=== PATIENT | male | born 1945 | race Caucasian/White ===

== ENCOUNTER 2018-05-06 20:05 | Emergency (ER) | payer OTHER ==
--- NOTE | 2018-05-06 20:43 | EDPHYS ---
Physician Documentation [facility] Name: Geovanny Moore Age: 72 yrs Sex: Male : 1945 Arrival Date: 05/06/2018 Time: 20:09 Bed 27 Private MD: Luis Eduardo Knott F ED Physician Manny Aldrich HPI: 05/06 20:35 This 72 yrs old Male presents to ER via Wheelchair with complaints of FOOT ps1 INFECTED. 20:35 diabetic patient on glimeperide BS 147. Has open sore inbetween toes. Has long history ps1 of toe fungus. Has pain and mild erythematous changes extending up the foot appx one inch. No fever. Pain moderate. Worse with ambulation. . Historical: - Allergies: 20:22 Codeine; aj1 - Home Meds: 20:22 potassium chloride 10 mEq Oral TbER 1 tab once daily [Active]; losartan 100 mg Oral tab aj1 1 tab once daily [Active]; furosemide 40 mg Oral tab 1 tab once daily [Active]; spironolactone 25 mg Oral tab 1 tab 2 times per day [Active]; glimepiride 1 mg Oral tab 1 tab once daily [Active]; isosorbide mononitrate 60 mg Oral Tb24 1 tab once daily [Active]; clopidogrel 75 mg Oral tab 1 tab once daily [Active]; pravastatin 40 mg Oral tab 1 tab once daily [Active]; aspirin 81 mg Oral tab 1 tab once daily [Active]; - PMHx: 20:22 CHF; COPD; defibrilator; Diabetes - NIDDM; Hypertension; Myocardial infarction; CAD; aj1 - Immunization history:: Flu vaccine is up to date. - Social history:: Smoking status: Patient uses tobacco products, smokes two packs cigarettes per day. - Ebola Screening: : Patient denies travel to an Ebola-affected area in the 21 days before illness onset. ROS: 20:35 Constitutional: Negative for fever, chills, and weight loss, Eyes: Negative for injury, ps1 pain, redness, and discharge, Cardiovascular: Negative for chest pain, palpitations, and edema, Respiratory: Negative for shortness of breath, cough, wheezing, and pleuritic chest pain, Abdomen/GI: Negative for abdominal pain, nausea, vomiting, diarrhea, and constipation, MS/Extremity: Negative for injury and deformity. 20:35 Skin: Positive for cellulitis, ulceration, of the left fourth toe. Exam: 20:35 Constitutional: This is a well developed, well nourished patient who is awake, alert, ps1 and in no acute distress. Head/Face: Normocephalic, atraumatic. Eyes: Pupils equal round and reactive to light, extra-ocular motions intact. Lids and lashes normal. Conjunctiva and sclera are non-icteric and not injected. Chest/axilla: Normal chest wall appearance and motion. Nontender with no deformity. No lesions are appreciated. Cardiovascular: Regular rate and rhythm. No gallops, murmurs, or rubs. Normal PMI, no JVD. No pulse deficits. Respiratory: Lungs have equal breath sounds bilaterally, clear to auscultation and percussion. No rales, rhonchi or wheezes noted. No increased work of breathing, no retractions or nasal flaring. Abdomen/GI: Soft, non-tender, with normal bowel sounds. No distension or tympany. No guarding or rebound. No evidence of tenderness throughout. MS/ Extremity: Pulses equal, no cyanosis. Neurovascular intact. Full, normal range of motion. Neuro: Awake and alert, GCS 15, oriented to person, place, time, and situation. Cranial nerves II-XII grossly intact. Sensory grossly intact. 20:35 Skin: cellulitis, that is minimal, on the left fourth toe web space, appears candidal. . Vital Signs: 20:22 BP 137 / 77; Pulse 63; Resp 18; Temp 97.6(TE); Pulse Ox 96% on R/A; Weight 102.06 kg aj1 (R); Height 6 ft. 2 in. (187.96 cm) (R); Pain 0/10; 20:22 Body Mass Index 28.89 (102.06 kg, 187.96 cm) aj1 MDM: 20:41 Data reviewed: vital signs, nurses notes, lab test result(s). 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 20:42 Patient medically screened. ps1 Administered Medications: 20:41 Drug: [place] 5 mg-325 mg 1 tabs Route: PO; mg2 21:01 Follow up: Response: No adverse reaction; Medication administered at discharge. mg2 Disposition: 05/06/18 20:42 Discharged to Home. Impression: Diabetic Ulcer, Onchyomycosis. - Condition is Stable. - Discharge Instructions: Athlete's Foot, Cellulitis, Adult. - Prescriptions for Clotrimazole 1 % Topical Cream - Apply to affected area 1 application by TOPICAL route every 12 hours; 15 gram. Keflex 500 mg Oral Capsule - take 1 capsule by ORAL route every 8 hours for 10 days; 30 capsule. Tramadol 50 mg Oral Tablet - take 1 tablet by ORAL route every 8 hours as needed; 12 tablet. Bactrim DS 800- 160 mg Oral Tablet - take 1 tablet by ORAL route every 12 hours for 10 days; 20 tablet. - Medication Reconciliation Form, Thank You Letter, Antibiotic Education, Prescription Opioid Use form. - Follow up: Luis Eduardo Knott MD; When: As needed; Reason: Further diagnostic work-up, Recheck today's complaints, Continuance of care, Re-evaluation by your physician. Follow up: Emergency Department; When: As needed; Reason: Fever > 102 F, Trouble breathing, Worsening of condition. - Problem is new. - Symptoms are unchanged. Signatures: Mindy Barry RN RN aj1 Manny Aldrich MD MD ps1 Ilya Méndez RN RN mg2 Corrections: (The following items were deleted from the chart) 21:14 20:42 05/06/2018 20:42 Discharged to Home. Impression: Diabetic Ulcer; Onchyomycosis. mg2 Condition is Stable. Forms are Medication Reconciliation Form, Thank You Letter, Antibiotic Education, Prescription Opioid Use. Follow up: Luis Eduardo Knott; When: As needed; Reason: Further diagnostic work-up, Recheck today's complaints, Continuance of care, Re-evaluation by your physician. Follow up: Emergency Department; When: As needed; Reason: Fever > 102 F, Trouble breathing, Worsening of condition. Problem is new. Symptoms are unchanged. ps1
--- NOTE | 2018-05-06 20:43 | ER ---
Nurse's Notes [facility] Name: Geovanny Moore Age: 72 yrs Sex: Male : 1945 Arrival Date: 05/06/2018 Time: 20:09 Bed 27 Private MD: Luis Eduardo Knott F Diagnosis: Diabetic Ulcer;Onchyomycosis Presentation: 05/06 20:15 Presenting complaint: Patient states: Pain and redness to the top of his left foot that aj1 started 2 days ago. Denies fever. Transition of care: patient was not received from another setting of care. Onset of symptoms was May 04, 2018. Risk Assessment: Do you want to hurt yourself or someone else? Patient reports no desire to harm self or others. Initial Sepsis Screen: Does the patient meet any 2 criteria? No. Patient's initial sepsis screen is negative. Does the patient have a suspected source of infection? Yes: Skin breakdown/wound. Care prior to arrival: None. 20:15 Method Of Arrival: Wheelchair aj1 20:15 Acuity: KIARA 3 aj1 Triage Assessment: 20:22 General: Appears in no apparent distress. uncomfortable, Behavior is calm, cooperative, aj1 appropriate for age. Pain: Complains of pain in left foot Pain currently is 0 out of 10 on a pain scale. at worst was 10 out of 10 on a pain scale. Alleviated by rest, Aggravated by repositioning. Neuro: Level of Consciousness is awake, alert, obeys commands. Cardiovascular: Patient's skin is warm and dry. Respiratory: Airway is patent Respiratory effort is even, unlabored, Respiratory pattern is regular, symmetrical. Historical: - Allergies: 20:22 Codeine; aj1 - Home Meds: 20:22 potassium chloride 10 mEq Oral TbER 1 tab once daily [Active]; losartan 100 mg Oral tab aj1 1 tab once daily [Active]; furosemide 40 mg Oral tab 1 tab once daily [Active]; spironolactone 25 mg Oral tab 1 tab 2 times per day [Active]; glimepiride 1 mg Oral tab 1 tab once daily [Active]; isosorbide mononitrate 60 mg Oral Tb24 1 tab once daily [Active]; clopidogrel 75 mg Oral tab 1 tab once daily [Active]; pravastatin 40 mg Oral tab 1 tab once daily [Active]; aspirin 81 mg Oral tab 1 tab once daily [Active]; - PMHx: 20:22 CHF; COPD; defibrilator; Diabetes - NIDDM; Hypertension; Myocardial infarction; CAD; aj1 - Immunization history:: Flu vaccine is up to date. - Social history:: Smoking status: Patient uses tobacco products, smokes two packs cigarettes per day. - Ebola Screening: : Patient denies travel to an Ebola-affected area in the 21 days before illness onset. Screenin:00 Abuse screen: Denies threats or abuse. Denies injuries from another. Nutritional mg2 screening: No deficits noted. Tuberculosis screening: No symptoms or risk factors identified. Fall Risk None identified. Assessment: 21:00 General: Appears in no apparent distress. comfortable, Behavior is calm, cooperative. mg2 Pain: Complains of pain in left fourth toe and left foot Pain does not radiate. Pain currently is 6 out of 10 on a pain scale. Quality of pain is described as aching, Pain began gradually, Is intermittent, Alleviated by medications. Neuro: Level of Consciousness is awake, alert, obeys commands, Oriented to person, place, time, situation. Cardiovascular: Capillary refill < 3 seconds Patient's skin is warm and dry. Respiratory: Airway is patent Respiratory effort is even, unlabored, Respiratory pattern is regular, symmetrical. GI: No signs and/or symptoms were reported involving the gastrointestinal system. : No signs and/or symptoms were reported regarding the genitourinary system. EENT: No signs and/or symptoms were reported regarding the EENT system. Derm: Skin is intact, Wound noted left fourth toe and left foot. Vital Signs: 20:22 BP 137 / 77; Pulse 63; Resp 18; Temp 97.6(TE); Pulse Ox 96% on R/A; Weight 102.06 kg aj1 (R); Height 6 ft. 2 in. (187.96 cm) (R); Pain 0/10; 20:22 Body Mass Index 28.89 (102.06 kg, 187.96 cm) aj1 ED Course: 20:09 Patient arrived in ED. es 20:10 Luis Eduardo Knott MD is Private Physician. es 20:19 Triage completed. aj1 20:22 Arm band placed on Patient placed in an exam room. aj1 20:24 Manny Aldrich MD is Attending Physician. ps1 20:31 Gardose, Ilya, RN is Primary Nurse. mg2 20:42 Luis Eduardo Knott MD is Referral Physician. ps1 21:00 No provider procedures requiring assistance completed. Patient did not have IV access mg2 during this emergency room visit. 21:01 Patient has correct armband on for positive identification. mg2 Administered Medications: 20:41 Drug: [place] 5 mg-325 mg 1 tabs Route: PO; mg2 21:01 Follow up: Response: No adverse reaction; Medication administered at discharge. mg2 Outcome: 20:42 Discharge ordered by MD. ps1 21:13 Discharged to home via wheelchair. mg2 21:13 Condition: stable 21:13 Discharge instructions given to patient, family, Instructed on discharge instructions, follow up and referral plans. medication usage, Demonstrated understanding of instructions, follow-up care, medications, Prescriptions given X 4. 21:14 Patient left the ED. mg2 Signatures: Mindy Barry RN RN aj1 Cony Ervin Phillip, MD MD ps1 Ilya Méndez RN RN mg2
[2018-05-06] MEDS ORDERED: HYDROCODONE/APAP 5/325 MG TAB ONE (20:46)
[2018-05-06 21:23] VITALS: BP 137/77; TEMP 97.6; O2SAT 96
== END 2018-05-06 21:14 | disposition home or self-care (01) ==
LOC: ER 20:05
DX: B35.1 Tinea unguium (principal); F17.210 Nicotine dependence, cigarettes, uncomplicated; I10 Essential (primary) hypertension; J44.9 Chronic obstructive pulmonary disease, unspecified; I25.2 Old myocardial infarction; I50.9 Heart failure, unspecified; Z79.82 Long term (current) use of aspirin; Z88.5 Allergy status to narcotic agent
CPT/HCPCS: 82962; 99283

== ENCOUNTER 2018-09-19 14:45 | Observation (INO) | payer OTHER, SELFPAY ==
--- OUTSIDE RECORDS SUMMARY | 2018-09-19 14:50 | XMS REPORT | Continuity of Care Document ---
:1945 Author Organization Interface Problems Problem Status Onset Classification Date Comments Source Date Reported TIA L SIDED Active [facility] TIA L SIDED Active [facility] WEAKNESS/ABNO 4 Medical RMAL CTA Center TRANS CEREB Active [facility] Medications Medication Details Route Status Patient Ordering Order Source Instructions Provider Date Allergies, Adverse Reactions, Alerts Substance Category Reaction Severity Reaction Status Date Comments Source type Reported Immunizations Immunization Date Given Site Status Last Updated Comments Source Results Order Results Value Reference Date Interpretation Comments Source Name Range Brain/Nec Brain/Nec EXAM: CT BRAIN WITHOUT CONTRAST 03/17 - [facility] CTA k CTA /2013 - Medical EXAM: CTA OF THE NECK Center EXAM: CTA OF THE BRAIN Read by: Everton Carrington MD Dictated Date/time: 03/17/14 21:10 Electronically Signed by: Everton Carrington MD 03/17/14 21:41 FINAL REPORT DATE: Mar 17, 2014 05:57:00 AM INDICATION: Altered level of consciousness TECHNIQUE: Precontrast CT images of the brain were obtained from the skullbase to the vertex. Contiguous thin section images of the neck and brain were obtained utilizing a multidetector scanner after uneventful administration of nonionic iodinated contrast medium. Computer reformatted maximal i ntensity projection (MIP) sagittal and coronal images are provided. COMPARISON: Head [facility] presence [facility] March 16, 2014 11: 58 p.m. FINDINGS: PRECONTRAST BRAIN CT: The examination is unchanged. There is no evidence of intraparenchymal or extra-axial hemorrhage, mass, mass-effect, hydrocephalus, or acute cortical infarction. Extensive left frontal encephalomalacia is present primarily involving the middle frontal gyrus and the subjacent white matter as well as the left cervantes radiata. Additional remote ischemic changes are seen in the anterior cervantes radiata more inferiorly with involvement of the adjacent body of the caudate and compensatory dilation of the ipsilateral ventricle. A remote lacunar infarct is present in the globus pallidus on the left. Additional hypodensity is seen in the thalami bilaterally, more prominent on the left. The latter lesion is of indeterminate age. Another area of hypodensity is detected in the mc to the left of midline extending up nearly to the junction with the midbrain. There is also diminished attenuation in the right cerebral peduncle whic h may, in part, be artifactual. Linear hypodensities in the cerebellar hemispheres bilaterally are felt to represent small remote infarcts, larger on the left. Incidental imaging of the orbits, paranasal sinuses, skull, and skull base is unremarkable. NECK CTA: Aortic arch: The great vessels originate from the aortic arch in the standard configuration. No origin stenosis is identified. The vertebral artery origins are patent bilaterally. Carotid arteries: The cervical common carotid arteries have a normal course , caliber, and contour. There are areas of calcification at the carotid bifurcations. The left internal carotid artery is occlu ded. A small (6 mm) stump is present at the bifurcation area on the right, no measurable stenosis of the carotid bifurcation or internal carotid artery is present by NASCET criteria. There is no evidence of acute vascular injury. Vertebral arteries: The vertebral arteries are codominant. They have a normal course in the neck. Mild atherosclerotic irregularity is present at the C6 level bilaterally without producing a measurable degree of stenosis. The remainder of the vertebral arteries have a normal course and caliber extracranially. BRAIN CTA: The intracranial internal carotid artery on the left is occluded up to the level of the ophthalmic artery. Calcification in this region obscures the expected location of the lumen. Based on reformatted images I suspect that there is a tiny amount of contrast present in the supraclinoid internal carotid artery. Whether this is filling from the ophthalmic artery or retrograde is uncertain. A small anter ior communicating artery provides collateral flow. Vascular structures in the suprasellar cistern are probably venous rather than very small posterior communicating arteries. In spite of the lack of prominent collaterals just noted, caliber of the middle cerebral artery is preserved indicating that blood flow is available from some source, possibly over the convexity. The an terior cerebral artery on the left, likewise, has a normal appearance. Atherosclerotic changes are present on the right involving the cavernous carotid but are too dense to allow adequate visualization of the segment of the vessel to determine whether a flow limiting stenosis is present. Atherosclerotic changes are seen in peripheral MCA branches bilaterally. No branch occlusion is detected. Examination of the posterior circulation demonstrates extensive calcification of the V4 segments bilaterally with a greater than 50% stenosis seen on the right. On the left, a great deal of calcificatio n is present immediately proximal to the basilar artery which obscures the underlying lumen. However, and at least 30 to 40% stenosis is felt to be present. On the right, there is a very focal 65% steno sis present in this region. Further assess atherosclerotic changes extend into the basilar artery. At the mid basilar artery a high-grade eccentric stenosis is present causing near occlusion of the lumen. This measures at least 70% and may be more. Again, atherosclerotic changes are noted more peripherally in the posterior cerebral arteries, particularly on the right where multifocal narrowing of the already small vessel is identified in the P2 se gment with Camilla tandem less than 50% stenoses being present, partially obscured by an overlapping vein on the MIP image. IMPRESSION: 1. Remote left MCA territory infarct. 2. Extensive chronic microvascular ischemic changes of the white matter and deep tavarez matter nuclei may obscure a superimposed more recent infarct. 3. Age-indeterminate left thalamic lacunar infarct. 4. Small remote bilateral cerebellar infarcts. 5. No intracranial mass or hemorrhage. 6. Chronic left internal carotid artery stenosis. Small stump at the ICA origin on the left is a potential source for emboli assuming that flow in the of stomach artery is retrograde. 7. Opacification of the intracranial circulation on the left with collateral flow being provided by the anterior communicating artery although it is small. Leptomeningeal collateral flow is likely also present given the lack of detectable posterior communicating arteries. 8. 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 9. Extensive peripheral intracranial atherosclerotic change. (All qualitative and quantitative assessments of carotid bifurcation and proximal internal carotid artery stenosis are made referencing the distal internal carotid artery.) Brain Brain EXAM: CT BRAIN WITHOUT CONTRAST 03/17 - [facility] Stroke wo Stroke - Medical contrast contrast EXAM: CTA OF THE NECK Center CT CT EXAM: CTA OF THE BRAIN Read by: Everton Carrington MD Dictated Date/time: 03/17/14 21:10 Electronically Signed by: Everton Carrington MD 03/17/14 21:41 FINAL REPORT DATE: Mar 17, 2014 05:57:00 AM INDICATION: Altered level of consciousness TECHNIQUE: Precontrast CT images of the brain were obtained from the skullbase to the vertex. Contiguous thin section images of the neck and brain were obtained utilizing a multidetector scanner after uneventful administration of nonionic iodinated contrast medium. Computer reformatted maximal i ntensity projection (MIP) sagittal and coronal images are provided. COMPARISON: Head [facility] presence [facility] March 16, 2014 11: 58 p.m. FINDINGS: PRECONTRAST BRAIN CT: The examination is unchanged. There is no evidence of intraparenchymal or extra-axial hemorrhage, mass, mass-effect, hydrocephalus, or acute cortical infarction. Extensive left frontal encephalomalacia is present primarily involving the middle frontal gyrus and the subjacent white matter as well as the left cervantes radiata. Additional remote ischemic changes are seen in the anterior cervantes radiata more inferiorly with involvement of the adjacent body of the caudate and compensatory dilation of the ipsilateral ventricle. A remote lacunar infarct is present in the globus pallidus on the left. Additional hypodensity is seen in the thalami bilaterally, more prominent on the left. The latter lesion is of indeterminate age. Another area of hypodensity is detected in the mc to the left of midline extending up nearly to the junction with the midbrain. There is also diminished attenuation in the right cerebral peduncle whic h may, in part, be artifactual. Linear hypodensities in the cerebellar hemispheres bilaterally are felt to represent small remote infarcts, larger on the left. Incidental imaging of the orbits, paranasal sinuses, skull, and skull base is unremarkable. NECK CTA: Aortic arch: The great vessels originate from the aortic arch in the standard configuration. No origin stenosis is identified. The vertebral artery origins are patent bilaterally. Carotid arteries: The cervical common carotid arteries have a normal course , caliber, and contour. There are areas of calcification at the carotid bifurcations. The left internal carotid artery is occlu ded. A small (6 mm) stump is present at the bifurcation area on the right, no measurable stenosis of the carotid bifurcation or internal carotid artery is present by NASCET criteria. There is no evidence of acute vascular injury. Vertebral arteries: The vertebral arteries are codominant. They have a normal course in the neck. Mild atherosclerotic irregularity is present at the C6 level bilaterally without producing a measurable degree of stenosis. The remainder of the vertebral arteries have a normal course and caliber extracranially. BRAIN CTA: The intracranial internal carotid artery on the left is occluded up to the level of the ophthalmic artery. Calcification in this region obscures the expected location of the lumen. Based on reformatted images I suspect that there is a tiny amount of contrast present in the supraclinoid internal carotid artery. Whether this is filling from the ophthalmic artery or retrograde is uncertain. A small anter ior communicating artery provides collateral flow. Vascular structures in the suprasellar cistern are probably venous rather than very small posterior communicating arteries. In spite of the lack of prominent collaterals just noted, caliber of the middle cerebral artery is preserved indicating that blood flow is available from some source, possibly over the convexity. The an terior cerebral artery on the left, likewise, has a normal appearance. Atherosclerotic changes are present on the right involving the cavernous carotid but are too dense to allow adequate visualization of the segment of the vessel to determine whether a flow limiting stenosis is present. Atherosclerotic changes are seen in peripheral MCA branches bilaterally. No branch occlusion is detected. Examination of the posterior circulation demonstrates extensive calcification of the V4 segments bilaterally with a greater than 50% stenosis seen on the right. On the left, a great deal of calcificatio n is present immediately proximal to the basilar artery which obscures the underlying lumen. However, and at least 30 to 40% stenosis is felt to be present. On the right, there is a very focal 65% steno sis present in this region. Further assess atherosclerotic changes extend into the basilar artery. At the mid basilar artery a high-grade eccentric stenosis is present causing near occlusion of the lumen. This measures at least 70% and may be more. Again, atherosclerotic changes are noted more peripherally in the posterior cerebral arteries, particularly on the right where multifocal narrowing of the already small vessel is identified in the P2 se gment with Camilla tandem less than 50% stenoses being present, partially obscured by an overlapping vein on the MIP image. IMPRESSION: 1. Remote left MCA territory infarct. 2. Extensive chronic microvascular ischemic changes of the white matter and deep tavarez matter nuclei may obscure a superimposed more recent infarct. 3. Age-indeterminate left thalamic lacunar infarct. 4. Small remote bilateral cerebellar infarcts. 5. No intracranial mass or hemorrhage. 6. Chronic left internal carotid artery stenosis. Small stump at the ICA origin on the left is a potential source for emboli assuming that flow in the of stomach artery is retrograde. 7. Opacification of the intracranial circulation on the left with collateral flow being provided by the anterior communicating artery although it is small. Leptomeningeal collateral flow is likely also present given the lack of detectable posterior communicating arteries. 8. 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 9. Extensive peripheral intracranial atherosclerotic change. (All qualitative and quantitative assessments of carotid bifurcation and proximal internal carotid artery stenosis are made referencing the distal internal carotid artery.) Chest Chest EXAM: XR CHEST ONE VIEW: 03/17 - [facility] 1view - [facility] This report was dictated by a Processing Manager/Fellow. I have personally reviewed the images as Center well as the Resident's interpretation and agree with the findings. DATE: 2014-03-17 04:28:00 Read by: Marco Johnson MD Resident: Marco Johnson MD Dictated Date/time: 03/17/14 05:06 Electronically Signed by: Nickolas Fletcher MD 03/17/14 08:00 FINAL REPORT INDICATION: CVA/TIA TECHNIQUE: Semiupright portable chest radiograph COMPARISON: Chest x-ray from December 21, 2009. FINDINGS: The heart and mediastinal contours are within normal limits . A pulse generator overlies the right upper thorax with AICD lead overlying the SVC and right atrial and right ventricular pacemak er leads present. The lungs are clear. There is no pleural effusion or pneumothorax. No acute bone abnormality is identified. IMPRESSION: No acute radiographic abnormality of the chest. Vital Signs Vital Sign Value Date Comments Source Encounters Location Location Encounter Encounter Reason Attending ADM DC Status Source Details Type Number For Provider Date Date Visit Outpatient [id number] SHAR 08/30 [facility] [place] Outpatient [id number] SHAR 09/27 [facility] [place] Procedures Procedure Code Date Perfomer Comments Source
[2018-09-19 16:03] LABS: Absolute Lymphocytes (CBC) 1.7 K/uL (0.7-4.9); Absolute Monocytes 1.3 K/uL (0.1-1.3); Basophils % 1.7 % (0-1.3); Eosinophils % 2.4 % (0-4.4); Hematocrit 47.2 % (39.6-49.0); Lymphocytes % 15.1 % (15.3-44.8); MPV 9.9 fL (7.6-11.3); Monocytes % 11.2 % (3.3-12.3); RBC Red Blood Cell Count 5.28 M/uL (4.33-5.43)
[2018-09-19 16:12] LABS: Protime INR 1.01
--- NOTE | 2018-09-19 16:12 | RAD REPORT ---
EXAM DESCRIPTION: [facility] Single View09/19/2018 4:05 pm CLINICAL HISTORY: Chest pain COMPARISON: January 2018 FINDINGS: The lungs appear clear of acute infiltrate. The heart is borderline enlarged. Pacemaker l arsalan are in place. Postsurgical changes involve the chest IMPRESSION: No acute abnormalities displayed
[2018-09-19] MEDS ORDERED: NA CHLORIDE 0.9% 1,000 ML ONE (16:23)
[2018-09-19] MEDS ORDERED: FAMOTIDINE 20 MG/2 ML VIAL IV ONE (16:23)
[2018-09-19] MEDS ORDERED: Levofloxacin500mg IV 500 MG/100 ML BAG IV ONE (16:23)
[2018-09-19] MEDS ORDERED: METHYLPREDNISOLONE 125 MG INJ ONE (16:23)
--- NOTE | 2018-09-19 16:32 | EDPHYS ---
Physician Documentation [facility] Name: Geovanny oMore Age: 72 yrs Sex: Male : 1945 Arrival Date: 09/19/2018 Time: 14:48 Bed 5 Private MD: ED Physician Lincoln Flores HPI: 09/19 15:47 This 72 yrs old Male presents to ER via EMS with complaints of General adriana Weakness, Shortness Of Breath, Chest Pain. 15:47 The patient has shortness of breath at rest, with light activity. Onset: The adriana symptoms/episode began/occurred 3 day(s) ago. Duration: The symptoms are continuous, and are steadily getting worse. The patient's shortness of breath is aggravated by nothing, is alleviated by pursed lip breathing, rest, application of supplemental oxygen. Associated signs and symptoms: The patient has no apparent associated signs or symptoms. Severity of symptoms: At their worst the symptoms were moderate in the emergency department the symptoms have resolved. The patient has not experienced similar symptoms in the past. Historical: - Allergies: 15:23 Codeine; iw - Home Meds: 15:23 aspirin 325 mg oral TbEC once daily [Active]; clopidogrel 75 mg Oral tab 1 tab once iw daily [Active]; furosemide 40 mg Oral tab 1 tab 2 times per day [Active]; glimepiride 1 mg Oral tab 1 tab once daily [Active]; isosorbide mononitrate 60 mg Oral Tb24 1 tab once daily [Active]; losartan 100 mg Oral tab 1 tab once daily [Active]; spironolactone 25 mg Oral tab 1 tab 2 times per day [Active]; pravastatin 40 mg Oral tab 1 tab once daily [Active]; Nitrostat 0.4 mg SL subl 1 tab [Active]; Perforomist 20 mcg/2 mL inhalation nebu 2 mL 2 times per day [Active]; benazepril 40 mg oral tab 1 tab once daily [Active]; clonazepam 0.5 mg Oral tab 1 tab 3 times per day [Active]; - PMHx: 15:23 CAD; CHF; COPD; Diabetes - NIDDM; Hypertension; Myocardial infarction; defibrillator; iw - Immunization history:: Adult Immunizations up to date. - Family history:: not pertinent. - Social history:: Smoking status: Patient uses tobacco products, smokes one-half pack cigarettes per day. - Ebola Screening: : Patient negative for fever greater than or equal to 101.5 degrees Fahrenheit, and additional compatible Ebola Virus Disease symptoms Patient denies exposure to infectious person Patient denies travel to an Ebola-affected area in the 21 days before illness onset No symptoms or risks identified at this time. ROS: 15:47 Eyes: Negative for injury, pain, redness, and discharge, ENT: Negative for injury, adriana pain, and discharge, Neck: Negative for injury, pain, and swelling, Cardiovascular: Negative for chest pain, palpitations, and edema, Abdomen/GI: Negative for abdominal pain, nausea, vomiting, diarrhea, and constipation, Back: Negative for injury and pain, : Negative for injury, bleeding, discharge, and swelling, MS/Extremity: Negative for injury and deformity, Skin: Negative for injury, rash, and discoloration, Neuro: Negative for headache, weakness, numbness, tingling, and seizure, Psych: Negative for depression, anxiety, suicide ideation, homicidal ideation, and hallucinations, Allergy/Immunology: Negative for hives, rash, and allergies, Endocrine: Negative for neck swelling, polydipsia, polyuria, polyphagia, and marked weight changes, Hematologic/Lymphatic: Negative for swollen nodes, abnormal bleeding, and unusual bruising. 15:47 Constitutional: Positive for body aches, chills, fatigue, malaise, poor PO intake. 15:47 Respiratory: Positive for cough, shortness of breath, wheezing, expiratory. Exam: 15:47 Constitutional: This is a well developed, well nourished patient who is awake, alert, adriana and in no acute distress. Head/Face: Normocephalic, atraumatic. Eyes: Pupils equal round and reactive to light, extra-ocular motions intact. Lids and lashes normal. Conjunctiva and sclera are non-icteric and not injected. Cornea within normal limits. Periorbital areas with no swelling, redness, or edema. ENT: Nares patent. No nasal discharge, no septal abnormalities noted. Tympanic membranes are normal and external auditory canals are clear. Oropharynx with no redness, swelling, or masses, exudates, or evidence of obstruction, uvula midline. Mucous membranes moist. Neck: Trachea midline, no thyromegaly or masses palpated, and no cervical lymphadenopathy. Supple, full range of motion without nuchal rigidity, or vertebral point tenderness. No Meningismus. Chest/axilla: Normal chest wall appearance and motion. Nontender with no deformity. No lesions are appreciated. Cardiovascular: Regular rate and rhythm with a normal S1 and S2. No gallops, murmurs, or rubs. Normal PMI, no JVD. No pulse deficits. Abdomen/GI: Soft, non-tender, with normal bowel sounds. No distension or tympany. No guarding or rebound. No evidence of tenderness throughout. Back: No spinal tenderness. No costovertebral tenderness. Full range of motion. Male : Normal genitalia with no discharge or lesions. Skin: Warm, dry with normal turgor. Normal color with no rashes, no lesions, and no evidence of cellulitis. MS/ Extremity: Pulses equal, no cyanosis. Neurovascular intact. Full, normal range of motion. Neuro: Awake and alert, GCS 15, oriented to person, place, time, and situation. Cranial nerves II-XII grossly intact. Motor strength 5/5 in all extremities. Sensory grossly intact. Cerebellar exam normal. Normal gait. Psych: Awake, alert, with orientation to person, place and time. Behavior, mood, and affect are within normal limits. 15:47 Respiratory: mild respiratory distress is noted, Respirations: labored breathing, that is mild, Breath sounds: bronchial sounds, decreased breath sounds, rhonchi, wheezing: expiratory Vital Signs: 15:14 BP 106 / 54; Pulse 62; Resp 22 S; Temp 98.2; Pulse Ox 91% on R/A; Weight 106.59 kg (R); iw 16:30 BP 111 / 54; Pulse 60; Resp 20 S; Temp 97.9(TE); Pulse Ox 100% on Nebulizer Mask; iw 18:26 BP 131 / 56; Pulse 71; Resp 22 S; Pulse Ox 100% on 2 lpm NC; Pain 0/10; iw 19:43 BP 124 / 61; Pulse 66; Resp 18; Temp 97.3(O); Pulse Ox 99% on 2 lpm NC; Pain 0/10; lp1 MDM: 14:53 Patient medically screened. [facility] 15:49 Data reviewed: vital signs, nurses notes, lab test result(s), EKG, radiologic studies, adriana plain films. 09/19 15:27 Order name: Basic Metabolic Panel; Complete Time: 16:45 09/19 15:27 Order name: CBC with Diff; Complete Time: 16:29 09/19 15:27 Order name: LFT's; Complete Time: 16:45 09/19 15:27 Order name: Magnesium; Complete Time: 16:45 09/19 15:27 Order name: NT PRO-BNP; Complete Time: 16:45 09/19 15:27 Order name: PT-INR; Complete Time: 16:29 09/19 15:27 Order name: Troponin (emerg Dept Use Only); Complete Time: 16:45 09/19 15:27 Order name: XRAY Chest (1 view); Complete Time: 16:29 09/19 15:27 Order name: Flu; Complete Time: 16:29 09/19 15:27 Order name: Blood Culture Adult (2) 09/19 15:27 Order name: Lactate; Complete Time: 16:29 adriana 09/19 15:27 Order name: Procalcitonin; Complete Time: 16:45 adriana 09/19 15:27 Order name: Urine Culture 09/19 16:49 Order name: US Rp Exam Complete 09/19 15:27 Order name: EKG; Complete Time: 15:29 09/19 15:27 Order name: Cardiac monitoring; Complete Time: 16:21 [facility] 09/19 15:27 Order name: EKG - Nurse/Tech; Complete Time: 19:12 09/19 15:27 Order name: IV Saline Lock; Complete Time: 19:12 09/19 15:27 Order name: Labs collected and sent; Complete Time: 19:12 adriana 09/19 15:27 Order name: O2 Per Protocol; Complete Time: 19:12 adriana 09/19 15:27 Order name: O2 Sat Monitoring; Complete Time: 19:12 [facility] 09/19 16:47 Order name: CONS Physician Consult EDMS Administered Medications: 16:10 Drug: NS 0.9% 1000 ml Route: IV; Rate: 125 ml/hr; Site: right antecubital; iw 20:23 Follow up: IV Status: Infusion continued upon admission ed1 16:15 Drug: SOLU-Medrol 125 mg Route: IVP; Site: right antecubital; iw 17:00 Follow up: Response: No adverse reaction iw 16:17 Drug: Pepcid 20 mg Route: IVP; Site: right antecubital; iw 17:00 Follow up: Response: No adverse reaction iw 16:19 Drug: levofloxacin 500 mg Volume: 100 ml; Route: IVPB; Infused Over: 60 mins; Site: iw right antecubital; 16:29 Drug: Albuterol - atroVENT (3:1) (2.5 mg - 0.5 mg) 3 ml Route: Nebulizer; iw 18:00 Follow up: Response: No adverse reaction; Marked relief of symptoms iw 17:23 Drug: Aspirin 81 mg Route: PO; iw 19:46 Follow up: Response: No adverse reaction lp1 17:23 Drug: Lovenox 1 mg/kg Route: Sub-Q; Site: right lower abdomen; iw 19:46 Follow up: Response: No adverse reaction lp1 Disposition: 09/19/18 16:31 Hospitalization ordered by Luis Eduardo Knott for Inpatient Admission. Preliminary diagnosis are Weakness, Chronic obstructive pulmonary disease with (acute) exacerbation, Hypoxemia, Other chest pain, Tobacco abuse counseling, Unspecified kidney failure. - Bed requested for Telemetry/MedSurg (Inpatient). - Status is Inpatient Admission. ed1 - Condition is Fair. - Problem is new. - Symptoms have improved. UTI on Admission? No Signatures: Dispatcher [employer] EDND Gayle Panchal RN RN mw Anderson, Corey, MD MD cha Williams, Irene, RN RN Candace Ortiz RN RN ed1 Mami Munoz RN RN lp1 Pinky Sellers ar5 Corrections: (The following items were deleted from the chart) 16:46 16:31 Hospitalization Ordered by Luis Eduardo Knott MD for Inpatient Admission. Preliminary adriana diagnosis is Weakness; Chronic obstructive pulmonary disease with (acute) exacerbation; Hypoxemia; Other chest pain; Tobacco abuse counseling. Bed requested for Telemetry/MedSurg (observation). Status is Inpatient Admission. Condition is Fair. Problem is new. Symptoms have improved. UTI on Admission? No. adriana 19:54 16:46 09/19/2018 16:31 Hospitalization Ordered by Luis Eduardo Knott MD for Inpatient Admission. Preliminary diagnosis is Weakness; Chronic obstructive pulmonary disease with (acute) exacerbation; Hypoxemia; Other chest pain; Tobacco abuse counseling; Unspecified kidney failure. Bed requested for Telemetry/MedSurg (Inpatient). Status is Inpatient Admission. Condition is Fair. Problem is new. Symptoms have improved. UTI on Admission? No. adriana 20:18 19:54 09/19/2018 16:31 Hospitalization Ordered by Luis Eduardo Knott MD for Inpatient ar5 Admission. Preliminary diagnosis is Weakness; Chronic obstructive pulmonary disease with (acute) exacerbation; Hypoxemia; Other chest pain; Tobacco abuse counseling; Unspecified kidney failure. Bed requested for Telemetry/MedSurg (Inpatient). Status is Inpatient Admission. Condition is Fair. Problem is new. Symptoms have improved. UTI on Admission? No. 20:34 20:18 09/19/2018 16:31 Hospitalization Ordered by Luis Eduardo Knott MD for Inpatient ed1 Admission. Preliminary diagnosis is Weakness; Chronic obstructive pulmonary disease with (acute) exacerbation; Hypoxemia; Other chest pain; Tobacco abuse counseling; Unspecified kidney failure. Bed requested for Telemetry/MedSurg (Inpatient). Status is Inpatient Admission. Condition is Fair. Problem is new. Symptoms have improved. UTI on Admission? No. ar5
--- NOTE | 2018-09-19 16:32 | ER ---
Nurse's Notes [facility] Name: Geovanny Moore Age: 72 yrs Sex: Male : 1945 Arrival Date: 09/19/2018 Time: 14:48 Bed 5 Private MD: Diagnosis: Weakness;Chronic obstructive pulmonary disease with (acute) exacerbation;Hypoxemia;Other chest pain;Tobacco abuse counseling;Unspecified kidney failure Presentation: 09/19 14:57 Presenting complaint: EMS states: was at Dr. Knott's office for a 6 month check up, iw staff reported that pt was not responding as he normally does, appeared to be drowsy, has been weak for past couple of days, c/o chest pain and SOB today, took 2 SL Nitro. Transition of care: patient was received from another setting of care (ambulatory primary care physician practice). Onset of symptoms was September 17, 2018. Risk Assessment: Do you want to hurt yourself or someone else? Patient reports no desire to harm self or others. Initial Sepsis Screen: Does the patient meet any 2 criteria? No. Patient's initial sepsis screen is negative. Does the patient have a suspected source of infection? No. Patient's initial sepsis screen is negative. Care prior to arrival: IV initiated. 20 GA, in the left antecubital area. 14:57 Method Of Arrival: EMS: [facility] iw 14:57 Acuity: KIARA 2 iw Historical: - Allergies: 15:23 Codeine; iw - Home Meds: 15:23 aspirin 325 mg oral TbEC once daily [Active]; clopidogrel 75 mg Oral tab 1 tab once iw daily [Active]; furosemide 40 mg Oral tab 1 tab 2 times per day [Active]; glimepiride 1 mg Oral tab 1 tab once daily [Active]; isosorbide mononitrate 60 mg Oral Tb24 1 tab once daily [Active]; losartan 100 mg Oral tab 1 tab once daily [Active]; spironolactone 25 mg Oral tab 1 tab 2 times per day [Active]; pravastatin 40 mg Oral tab 1 tab once daily [Active]; Nitrostat 0.4 mg SL subl 1 tab [Active]; Perforomist 20 mcg/2 mL inhalation nebu 2 mL 2 times per day [Active]; benazepril 40 mg oral tab 1 tab once daily [Active]; clonazepam 0.5 mg Oral tab 1 tab 3 times per day [Active]; - PMHx: 15:23 CAD; CHF; COPD; Diabetes - NIDDM; Hypertension; Myocardial infarction; defibrillator; iw - Immunization history:: Adult Immunizations up to date. - Family history:: not pertinent. - Social history:: Smoking status: Patient uses tobacco products, smokes one-half pack cigarettes per day. - Ebola Screening: : Patient negative for fever greater than or equal to 101.5 degrees Fahrenheit, and additional compatible Ebola Virus Disease symptoms Patient denies exposure to infectious person Patient denies travel to an Ebola-affected area in the 21 days before illness onset No symptoms or risks identified at this time. Screenin:05 Abuse screen: Denies threats or abuse. Denies injuries from another. Nutritional iw screening: No deficits noted. Tuberculosis screening: No symptoms or risk factors identified. Fall Risk IV access (20 points). Assessment: 15:40 General: Appears uncomfortable, ill, Behavior is drowsy. iw 16:40 Reassessment: Patient appears in no apparent distress at this time. pt sitting up in iw bed, states he just doesn't feel good, breathing treatment started, VSS. 18:26 Pain: Denies pain. Neuro: Level of Consciousness is awake, alert, obeys commands, iw Oriented to person, place, time, situation, Moves all extremities. Full function. Cardiovascular: Reports fatigue, lightheadedness, shortness of breath, Denies chest pain, Patient's skin is warm and dry. Rhythm is regular. Respiratory: Airway is patent Respiratory effort is even, labored, Respiratory pattern is symmetrical, Breath sounds are diminished bilaterally. GI: Abdomen is distended. Derm: Skin is intact. Musculoskeletal: Range of motion: intact in all extremities. 19:43 Reassessment: Patient appears in no apparent distress at this time. No changes from lp1 previously documented assessment. Patient and/or family updated on plan of care and expected duration. Pain level reassessed. Patient is alert, oriented x 3, equal unlabored respirations, skin warm/dry/pink. Pt family requesting to speak with Dr. Flores in regards to the test results and reason for admission. Patient denies pain at this time. Vital Signs: 15:14 BP 106 / 54; Pulse 62; Resp 22 S; Temp 98.2; Pulse Ox 91% on R/A; Weight 106.59 kg (R); iw 16:30 BP 111 / 54; Pulse 60; Resp 20 S; Temp 97.9(TE); Pulse Ox 100% on Nebulizer Mask; iw 18:26 BP 131 / 56; Pulse 71; Resp 22 S; Pulse Ox 100% on 2 lpm NC; Pain 0/10; iw 19:43 BP 124 / 61; Pulse 66; Resp 18; Temp 97.3(O); Pulse Ox 99% on 2 lpm NC; Pain 0/10; lp1 ED Course: 14:48 Patient arrived in ED. iw 14:53 Lincoln Flores MD is Attending Physician. adriana 15:13 EKG done, by lawn and garden technician. reviewed by Lincoln Flores MD. sm3 15:14 Triage completed. iw 15:20 Maintain EMS IV. Dressing intact. Good blood return noted. Site clean \T\ dry. Gauge \T\ iw site: 20 LAC. 15:30 Initial lab(s) drawn, by me, sent to lab. Inserted saline lock: 20 gauge in right iw antecubital area, using aseptic technique. Blood collected. 15:35 Falguni Damon, RN is Primary Nurse. iw 16:05 XRAY Chest (1 view) In Process Unspecified. EDMS 16:30 Luis Eduardo Knott MD is Hospitalizing Provider. adriana 17:38 US Rp Exam Complete In Process Unspecified. EDMS 19:14 Primary Nurse role handed off by Falguni Damon, RN ed1 19:14 Candace Ortiz, RN is Primary Nurse. ed1 19:43 Arm band placed on right wrist. ed1 19:45 Awaiting bed assignment. lp1 20:20 No provider procedures requiring assistance completed. Patient admitted, IV remains in ed1 place. intact, No redness/swelling at site. Administered Medications: 16:10 Drug: NS 0.9% 1000 ml Route: IV; Rate: 125 ml/hr; Site: right antecubital; iw 20:23 Follow up: IV Status: Infusion continued upon admission ed1 16:15 Drug: SOLU-Medrol 125 mg Route: IVP; Site: right antecubital; iw 17:00 Follow up: Response: No adverse reaction iw 16:17 Drug: Pepcid 20 mg Route: IVP; Site: right antecubital; iw 17:00 Follow up: Response: No adverse reaction iw 16:19 Drug: levofloxacin 500 mg Volume: 100 ml; Route: IVPB; Infused Over: 60 mins; Site: iw right antecubital; 16:29 Drug: Albuterol - atroVENT (3:1) (2.5 mg - 0.5 mg) 3 ml Route: Nebulizer; iw 18:00 Follow up: Response: No adverse reaction; Marked relief of symptoms iw 17:23 Drug: Aspirin 81 mg Route: PO; iw 19:46 Follow up: Response: No adverse reaction lp1 17:23 Drug: Lovenox 1 mg/kg Route: Sub-Q; Site: right lower abdomen; iw 19:46 Follow up: Response: No adverse reaction lp1 Outcome: 16:31 Decision to Hospitalize by Provider. adriana 20:20 Admitted to Med/surg accompanied by nurse, family with patient, via wheelchair, room ed1 229, with oxygen, with chart, Report called to Raisa Diaz LVN 20:20 Condition: stable 20:20 Discharge instructions given to patient, family, Instructed on the need for admit, Demonstrated understanding of instructions. 20:34 Patient left the ED. ed1 Signatures: Dispatcher [employer] EDMS Lincoln Flores MD MD cha Williams, Irene RN ROSAURA Candace Ortiz RN RN ed1 Mami Munoz RN RN 1 Opal Ambrose sm3 Corrections: (The following items were deleted from the chart) 17:06 15:14 BP 106 / 54; Pulse 62bpm; Resp 22bpm; Spontaneous; Pulse Ox 91% RA; iw iw 17:11 15:14 BP 106 / 54; Pulse 62bpm; Resp 22bpm; Spontaneous; Pulse Ox 91% RA; Temp 98.2F; iw 83.91 kg; iw 18:28 15:40 General: Appears uncomfortable, ill, iw iw
[2018-09-19] MEDS ORDERED: ALBUTEROL 2.5 MG/3 ML NEB SOL ONE (16:36)
[2018-09-19] MEDS ORDERED: IPRATROPIUM BROM 0.5MG/2.5ML ONE (16:36)
[2018-09-19 16:37] LABS: ALT/SGPT 40 U/L (12-78); AST/SGOT 28 U/L (15-37); Albumin 3.8 g/dL (3.4-5.0); Alkaline Phosphatase 106 U/L (45-117); BUN Blood Urea Nitrogen 41 mg/dL (7-18); Bicarbonate 26 mmol/L (21-32); Bilirubin Direct < 0.1 mg/dL (0-0.2); Bilirubin Total 0.3 mg/dL (0.2-1.0); Glucose Level 96 mg/dL (74-106); NT PRO-BNP 1602 pg/mL (<125); Potassium 4.6 mmol/L (3.5-5.1); Protein, Total 7.5 g/dL (6.4-8.2); Sodium Level 139 mmol/L (136-145); Troponin (Emerg Dept Use Only) 0.14 ng/mL (0.0-0.045)
--- NOTE | 2018-09-19 17:01 | EKG ---
Test Date: 2018-08-19 Test Time: 15:02:32 Supervisor [employer] Office: AMAURI MEASUREMENT RESULTS: Intervals: Rate: 73 SD: 96 QRSD: 178 QT: 462 QTc: 508 [place]: P: SD: 96 QRS: 0 T: 192 INTERPRETIVE STATEMENTS: Atrial-sensed ventricular-paced rhythm with occasional premature ventricular complexes Nonspecific intraventricular block Abnormal ECG Compared to ECG 02/26/2017 03:52:43 Ventricular premature complex(es) now present Atrial premature complex(es) no longer present Electronically Signed On 09-19-18 17:00:21 ADJUNCT PHYSICS INSTRUCTOR by Willy Morel
[2018-09-19] MEDS ORDERED: ENOXAPARIN 100 MG/ML SYR SQ ONE (17:24)
[2018-09-19] MEDS ORDERED: ASPIRIN 81 MG CHEWABLE TABLET ONE (17:24)
--- NOTE | 2018-09-19 17:52 | RAD REPORT ---
EXAM DESCRIPTION: US - Renal Ultrasound-Complete - 09/19/2018 5:37 pm CLINICAL HISTORY: . Renal failure COMPARISON: None. FINDINGS: The right kidney measures 9 cm with a normal echotexture. The left kidney measures 10 cm with a normal echotexture. Hydronephrosis is not seen. No gross abnormality of bladder is seen IMPRESSION: Unremarkable renal ultrasound.
[2018-09-19 20:47] VITALS: BMI 29.7
[2018-09-19] MEDS ORDERED: IPRATROPIUM BROM 0.5MG/2.5ML NEB PRN (20:51)
[2018-09-19] MEDS ORDERED: ALBUTEROL 2.5 MG/3 ML NEB SOL NEB PRN (20:51)
[2018-09-19] MEDS ORDERED: D50W 25 GM/50 ML SYRINGE IV PRN (20:51)
[2018-09-19] MEDS ORDERED: GLUCAGON 1 MG/VIAL IM PRN (20:51)
[2018-09-19] MEDS ORDERED: ACETAMINOPHEN 500 MG TAB PO PRN (20:51)
[2018-09-19] MEDS ORDERED: ONDANSETRON 4 MG/2 ML VIAL IV PRN (20:51)
[2018-09-19] MEDS ORDERED: MORPHINE 4 MG/ML SYR IV PRN (20:51)
[2018-09-19] MEDS ORDERED: ENOXAPARIN 60 MG/0.6 ML SQ SCH (21:00)
[2018-09-19] MEDS: INSULIN -REGULAR HUMAN 50 UNIT/0.5 ML ML SQ SCH (21:48)
[2018-09-20] MEDS: METHYLPREDNISOLONE 40 MG INJ IV SCH ×3 (00:28→18:02)
[2018-09-20 06:32] LABS: Absolute Lymphocytes (CBC) 0.8 K/uL (0.7-4.9); Absolute Monocytes 0.2 K/uL (0.1-1.3); Absolute Neutrophil 10.1 K/uL (1.8-8.0); Basophils % 0.2 % (0-1.3); Hematocrit 45.7 % (39.6-49.0); Lymphocytes % 7.3 % (15.3-44.8); MPV 10.1 fL (7.6-11.3); Monocytes % 1.5 % (3.3-12.3); RBC Red Blood Cell Count 5.09 M/uL (4.33-5.43)
[2018-09-20 06:50] LABS: Potassium 4.8 mmol/L (3.5-5.1)
[2018-09-20] MEDS: INSULIN -REGULAR HUMAN 50 UNIT/0.5 ML ML SQ SCH ×4 (07:30→20:53)
[2018-09-20] MEDS ORDERED: MORPHINE 2 MG/ML SYR IV PRN (07:32)
[2018-09-20 07:39] LABS: Blood Morphology Comment NOT SEEN (NOT SEEN); Platelet Estimate ADEQ; Urine White Blood Cell Casts OK
[2018-09-20] MEDS ORDERED: NITROGLYCERIN 0.4 MG/TAB SL PRN (08:40)
[2018-09-20] MEDS ORDERED: TRAMADOL HCL 50 MG TAB PO PRN (08:40)
[2018-09-20] MEDS ORDERED: clonazePAM 0.5 MG TAB PO PRN (08:40)
[2018-09-20 08:53] LABS: Urine Appearance CLEAR; Urine Bilirubin NEGATIVE (NEG); Urine Blood NEGATIVE (NEG); Urine Color YELLOW; Urine Glucose NEGATIVE (NEG); Urine Protein NEGATIVE (NEG); Urine Specific Gravity 1.015 (1.005-1.030); Urine Urobilinogen 0.2 mg/dL (0.2-1.0)
[2018-09-20 08:54] LABS: Urine Microscopic Reflex NO UMIC
[2018-09-20] MEDS ORDERED: HOME MED 1 EA UNK (Losartan/Hydrochlorothiazide [Losartan-Hctz 100-12.5 Mg Tab] 1 TAB) PO SCH (09:00)
[2018-09-20] MEDS: CLOPIDOGREL 75 MG TABLET PO SCH (09:07)
[2018-09-20] MEDS: ASPIRIN EC 81 MG TAB PO SCH (09:07)
[2018-09-20] MEDS: BENAZEPRIL 20 MG TAB PO SCH (09:12)
[2018-09-20] MEDS: FUROSEMIDE 40 MG TABLET PO SCH ×3 (09:12→20:52)
[2018-09-20] MEDS: SPIRONOLACTONE 25 MG TABLET PO SCH ×2 (09:12→20:51)
[2018-09-20] MEDS: GABAPENTIN 300 MG CAP PO SCH ×3 (09:12→20:52)
--- NOTE | 2018-09-20 12:16 | EKG ---
Test Date: 2018-09-20 Test Time: 09:27:25 Garment Inspector: ANDREA MEASUREMENT RESULTS: Intervals: Rate: 82 CO: 96 QRSD: 186 QT: 464 QTc: 542 [place]: P: 81 CO: 96 QRS: -84 T: 112 INTERPRETIVE STATEMENTS: Atrial-sensed ventricular-paced rhythm Compared to ECG 08/19/2018 15:02:32 Ventricular premature complex(es) no longer present Electronically Signed On 09-20-18 12:15:32 EMAIL DESIGNER by Willy Morel
--- NOTE | 2018-09-20 12:19 | ECHO ---
HEIGHT: 6 ft 2 in WEIGHT: 231 lb 5 oz DATE OF STUDY: 09/20/[address]: Lincoln Flores MD 2-DIMENSIONAL: YES M.MODE: YES DOPPLER: YES COLOR FLOW: YES TDS: YES PORTABLE: NO DEFINITY: NO BUBBLE STUDY: NO DIAGNOSIS: CHEST PAIN CARDIAC HISTORY: CATHERIZATION: NO SURGERY: NO PROSTHETIC VALVE: NO PACEMAKER: YES MEASUREMENTS (cm) DIASTOLIC (NORMALS) SYSTOLIC (NORMALS) IVSd 1.2 (0.6-1.2) LA Diam 3.9 (1.9-4.0) LVEF 40% LVIDd 5.0 (3.5-5.7) LVIDs 4.0 (2.0-3.5) %FS 19% LVPWd 1.2 (0.6-1.2) Ao Diam 2.9 (2.0-3.7) 2 DIMENSIONAL ASSESSMENT: RIGHT ATRIUM: DILATED LEFT ATRIUM: DILATED RIGHT VENTRICLE: PACEMAKER CATHETER LEFT VENTRICLE: NORMAL TRICUSPID VALVE: NORMAL MITRAL VALVE: NORMAL PULMONIC VALVE: NORMAL AORTIC VALVE: NORMAL PERICARDIAL EFFUSION: NONE AORTIC ROOT: NORMAL LEFT VENTRICULAR WALL MOTION: INFERIOR, POSTERIOR AKINESIS. DOPPLER/COLOR FLOW: MILD MITRAL AND TRICUSPID REGURGITATION. NORMAL RIGHT VENTRICULAR SYSTOLIC PRESSURE. COMMENTS: DEPRESSED LEFT VENTRICULAR EJECTION FRACTION WITH WALL MOTION ABNORMALITY. DILATED LEFT AND RIGHT ATRIUM. PACEMAKER CATHETER IN RIGHT VENTRICLE. MILD MITRAL AND TRICUSPID REGURGITATION. LEFT VENTRICULAR EJECTION FRACTION IMPROVED SINCE 12/03/16. TECHNOLOGIST: STERLING LANDAVERDE
--- NOTE | 2018-09-20 12:35 | CON ---
Chief Complaint: Near syncopal episode. History Of Present Illness: Mr. Moore is a gentleman who has end-stage heart disease. He has a defib rillator. He has had multiple stents. His EF is in the 20s. It is a chronic condition. He has a s table angina pattern. It only occurs if he coughs a lot or does a lot of physical exertion. For the most part, he moves throughout his daily life on a motorized wheelchair. He is able to stand and ge t into a car and drive. The last time he had chest pain was several weeks ago. Last time he had a c ardiac cath was several months ago. He had his defibrillator checked about 3 months ago. He came to the hospital. He was sent by Dr. Knott because he stumbled, fell onto a couch in the waiting room . He was able to get up to walk back to the room and then he was sounding confused. His outpatient medications are Plavix tramadol, glimepiride, gabapentin, losartan, hydrochlorothiazide, pravastatin, spironolactone, clonazepam, aspirin, benazepril, furosemide, and nitroglycerin. Physical Examination: General: He appears to be obese, alert, oriented, not in distress. Chronically ill, disheveled, unk empt appearance, 6 feet 2 inches 231 pounds. Lungs: Reveal all bronchial breath sounds. I do not detect wheezes or crackles. Heart: Reveals a systolic murmur. It sounds like mitral regurgitation, grade 1-2/6. No diastolic m urmur. Abdomen: Soft. Extremities: No edema. Distal pulses markedly diminished, but palpable. Laboratory Data: His electrocardiogram shows atrial sensed ventricular paced rhythm with occasional PVCs. Troponins are elevated, but over the course of 24 hours, they are all virtually the same, thos e are 0.14, 0.12, 0.11, and terminal proBNP is elevated. Creatinine is 2.66. That seems to be prett y close to the baseline for him. Blood sugars have been between 96 and 250. Impression: The patient may have had hypotension causing confusion and a fall. Presently, his blood pressure is 154/67. I would question the medication regimen. He is on losartan with hydrochlorothi azide, also benazepril and also Lasix and spironolactone. I think the losartan and hydrochlorothiazi de should be stopped. All they could do is cause complications. I do not think that medication woul d be any aid to him at all, so I strongly recommend he stop the losartan with hydrochlorothiazide. T he other medicine seem good. Of course, his usual doctors who treat him, could consider giving him E ntresto instead of the benazepril, but that I will leave up to Dr. Moore. I think we need to interro gate his defibrillator, see if he was having arrhythmia yesterday that was pace terminated. He does not recall getting any shocks and we will see after that what special things need to be done for Mr. Moore. He does not need a cardiac cath or a stress test. An echo will be useful and a defibrillator interrogation. SAKINA Voice ID: [id number] Report ID: [id number]
[2018-09-20] MEDS ORDERED: PNEUMOCOCCAL VACCINE 0.5 ML IMVAC ONE (13:00)
[2018-09-20] MEDS: ENOXAPARIN 30 MG/0.3 ML SQ SCH (18:03)
[2018-09-20] MEDS ORDERED: FAMOTIDINE 20 MG/2 ML VIAL IV SCH (21:00)
[2018-09-20] MEDS ORDERED: ATORVASTATIN 10 MG TAB PO SCH (21:00)
--- NOTE | 2018-09-20 22:15 | HP ---
Date of Admission: 09/19/2018 History Of Present Illness: This is a 72-year-old male with multiple medical problems including type 2 diabetes. He came to my office for a regular followup. However, while in the office, I went to [facility] the patient and he was not feeling well. He felt he is tired, short of breath, but not very speci fic about chest pain and he looked in distress, went ahead and sent the patient to the emergency room and his workup basically showed elevated troponin and the patient was admitted for observation. Review of Systems: Cardiovascular: The patient complained of a chest pain, was not very specific. He felt no palpitati on and voiced no complaints from that standpoint. Respiratory: Chronic shortness of breath, some worse. Gastrointestinal: No complaint. Genitourinary: No complaint. Neurological: No complaint. Skeletomuscular: Chronic low back pain, otherwise no complaint. Past Medical History: 1.Type 2 diabetes. 2.Status post defibrillator placement. 3.COPD. 4.Coronary artery disease. 5.Hypertension. Social History: The patient still smokes, he said about half-pack a day. No alcohol or drug abuse h istory. Family History: Noncontributory. Medications: Include aspirin 325 mg p.o. daily, Plavix 75 mg p.o. daily, furosemide 40 mg p.o. 1-2 t abs per day, glimepiride 1 mg p.o. daily, isosorbide mononitrate 60 mg p.o. daily, losartan 100 mg p. o. daily, spironolactone 25 mg daily, pravastatin 40 mg p.o. daily, Nitrostat 0.4 mg sublingual p.r.n ., Perforomist inhaler 2 times a day, benazepril 40 mg p.o. daily. Allergies: NO KNOWN DRUG ALLERGIES. Physical Examination: Vital Signs: Blood pressure 140/60, pulse 84, temperature 97.8. The patient's blood sugar fingersti cks done in my office were 124. Heart: Regular rate and rhythm. Chest: Mild bilateral crackles, clear with coughing. Abdomen: Soft, nontender. No hepatosplenomegaly. Bowel sounds normoactive. Extremities: No edema. No cyanosis. Peripheral pulses are felt. Neurological: Alert, oriented, nonfocal. Grossly intact. Room air pulse oximetry more than 90%. Diagnostic Data: Chest x-ray, no acute pathology. EKG; atrial sensing ventricular pacemaker with oc casional PVCs. Chemistry; BUN 50, creatinine 2.66. Blood sugar fingersticks, blood sugar 250 to 200 . BNP 1295. Troponin 0.12 and 0.11. Laboratory Data: White cell count 11.1, hemoglobin 15, hematocrit 45.7, platelets 211. Renal ultras ound unremarkable. Assessment And Plan: Fatigue, weakness, chronic obstructive pulmonary disease in a patient with anant nary artery disease and increased troponin. Admitted for observation and we will consult Cardiology. We will put him on insulin sliding scale, monitor his blood sugar and continue his home medicines f or his chronic medical illnesses. We will proceed with serial cardiac enzymes. The patient also was put on IV Solu-Medrol and beta 2 agonist breathing treatments for COPD. Look orders for details. MFS/MODL Voice ID: [id number]
--- NOTE | 2018-09-20 22:28 | HP ---
Date of Admission: 09/19/2018 Addendum: Also, the patient has chronic renal insufficiency, with diabetes and hypertension. Shiraeve r, his BUN and creatinine have shown some more worsening in this admission. We will monitor his elec trolytes, BUN, and creatinine. MFS/MODL Voice ID: [id number]
[2018-09-21] MEDS: METHYLPREDNISOLONE 40 MG INJ IV SCH ×2 (00:23→09:56)
[2018-09-21 06:25] LABS: Absolute Monocytes 0.9 K/uL (0.1-1.3); Absolute Neutrophil 20.4 K/uL (1.8-8.0); Basophils % 0.1 % (0-1.3); Hematocrit 44.5 % (39.6-49.0); Lymphocytes % 4.6 % (15.3-44.8); MPV 10.2 fL (7.6-11.3); Monocytes % 3.9 % (3.3-12.3); RBC Red Blood Cell Count 4.96 M/uL (4.33-5.43)
[2018-09-21 06:55] LABS: Blood Morphology Comment NOT SEEN (NOT SEEN); Platelet Estimate ADEQ
[2018-09-21] MEDS: INSULIN -REGULAR HUMAN 50 UNIT/0.5 ML ML SQ SCH ×3 (08:44→17:27)
[2018-09-21] MEDS: SPIRONOLACTONE 25 MG TABLET PO SCH (08:46)
[2018-09-21] MEDS: BENAZEPRIL 20 MG TAB PO SCH (08:46)
[2018-09-21] MEDS: FUROSEMIDE 40 MG TABLET PO SCH ×2 (08:46→13:05)
[2018-09-21] MEDS: CLOPIDOGREL 75 MG TABLET PO SCH (08:47)
[2018-09-21] MEDS: ASPIRIN EC 81 MG TAB PO SCH (08:47)
[2018-09-21] MEDS: GABAPENTIN 300 MG CAP PO SCH ×2 (08:47→13:06)
[2018-09-21 10:31] LABS: Absolute Lymphocytes (CBC) 0.7 K/uL (0.7-4.9); Absolute Monocytes 0.9 K/uL (0.1-1.3); Absolute Neutrophil 21.6 K/uL (1.8-8.0); Basophils % 0.2 % (0-1.3); Hematocrit 44.1 % (39.6-49.0); Lymphocytes % 3.2 % (15.3-44.8); Monocytes % 3.9 % (3.3-12.3); RBC Red Blood Cell Count 4.98 M/uL (4.33-5.43)
[2018-09-21 11:34] VITALS: O2SAT 92
--- NOTE | 2018-09-21 14:17 | PN ---
Mr. Moore's defibrillator interrogation did not reveal any ventricular tachycardia, defibrillator shoc ks, or any other significant arrhythmia during the time when he was lightheaded and dizzy. Presently , his vital signs are stable. His EF has improved into the 34% range, so I really think he could be discharged home today and return to the care of Dr. Moore. AMBER/KAYLYNN Voice ID: [id number] Report ID: [id number]
[2018-09-21] MEDS ORDERED: ALBUTEROL 2.5 MG/3 ML NEB SOL NEB PRN (15:00)
[2018-09-21] MEDS ORDERED: IPRATROPIUM BROM 0.5MG/2.5ML NEB PRN (15:00)
--- NOTE | 2018-09-21 15:04 | RAD REPORT ---
EXAM DESCRIPTION: RAD - Chest Pa And Lat (2 Views) - 09/21/2018 2:59 pm CLINICAL HISTORY: leukocytosis Chest pain. COMPARISON: Chest Single View dated 09/19/2018; Chest Pa And Lat (2 Views) dated 01/07/2018; Chest Sing le View dated 02/05/2017; Chest Single View dated 11/30/2016 FINDINGS: The lungs are clear. The heart is mildly enlarged with a multi lead pacer/defibrillator de vice present. No displaced fractures. IMPRESSION: No acute or concerning finding suspected.
[2018-09-21 15:16] LABS: Urine Appearance CLEAR; Urine Bilirubin NEGATIVE (NEG); Urine Blood NEGATIVE (NEG); Urine Color YELLOW; Urine Glucose NEGATIVE (NEG); Urine Protein NEGATIVE (NEG); Urine Urobilinogen 0.2 mg/dL (0.2-1.0)
[2018-09-21 16:54] VITALS: BP 152/68; TEMP 97.8
--- NOTE | 2018-09-21 17:11 | PN ---
Subjective: The patient is doing well. Has no complaints. Objective: Vital Signs: Blood pressure 130/60, pulse 60, temperature 98.3. Heart: Regular rate and rhythm. Chest: Clear to auscultation. Abdomen: Soft, nontender. No hepatosplenomegaly. Bowel sounds normoactive. Extremities: No edema. No cyanosis. Peripheral pulses are felt NEUROLOGIC: Alert, oriented, nonfocal. Grossly intact. Diagnostic Studies: Cardiac echo showed left ventricular ejection fraction of 40%. CBC showed white cell count of 23.3 with neutrophils at 92.7. Assessment/plan: 1.Leukocytosis, at least in part due to intravenous steroids. We will check however, chest x-ray, u rinalysis. Clinically, the patient does not show any indications of infection, but we will recheck o n that in the morning after we stop his steroids. 2.The patient's other medical problems are clinically stable. Chronic obstructive pulmonary disease and coronary artery disease are clinically stable. Appreciate Cardiology input. Cardiology has ind icated that the patient is stable from their standpoint to be discharged, however, we will hold on th at until we verify about the increased white cell count. 3.Look orders for details. MFS/MODL Voice ID: [id number] Report ID: [id number]
[2018-09-21] MEDS: ENOXAPARIN 30 MG/0.3 ML SQ SCH (17:28)
[2018-09-21 17:33] LABS: Urine Bacteria <20 /HPF (NONE SEEN); Urine Culture Reflex Order NOT NEEDED; Urine RBC <5 /HPF (NONE SEEN)
== END 2018-09-21 18:07 | disposition left against medical advice (07) ==
LOC: ER 14:45 → ERHOLD 16:37 → 2ND 20:27
PROVIDERS: ADMIT Internal Medicine; ATTEND Internal Medicine
DX: R53.83 Other fatigue (principal); R53.1 Weakness; D72.829 Elevated white blood cell count, unspecified; J44.9 Chronic obstructive pulmonary disease, unspecified; I25.10 Atherosclerotic heart disease of native coronary artery without angina pectoris; I12.9 Hypertensive chronic kidney disease with stage 1 through stage 4 chronic kidney disease, or unspecified chronic kidney disease; E11.22 Type 2 diabetes mellitus with diabetic chronic kidney disease; N18.9 Chronic kidney disease, unspecified; Z95.810 Presence of automatic (implantable) cardiac defibrillator; F17.210 Nicotine dependence, cigarettes, uncomplicated; Z23 Encounter for immunization
CPT/HCPCS: 36415 ×2; 71045; 71046; 76770; 80048 ×3; 80076; 81001; 81003; 82962 ×8; 83605; 83735; 83880 ×2; 84145; 84484 ×3; 85025 ×4; 85610; 87040 ×2; 87804 ×2; 90670; 93005 ×2; 93306; 94640; 94760 ×4; 96361; 96372; 96374; 96375; 99285; G0009; G0378 ×2; J1650 ×3; J2920 ×5; J2930; J7030

== ENCOUNTER 2018-10-04 15:49 | Inpatient (IN) | payer OTHER ==
--- OUTSIDE RECORDS SUMMARY | 2018-10-04 15:51 | XMS REPORT | Continuity of Care Document ---
:1945 Author Organization Interface Problems Problem Status Onset Classification Date Comments Source Date Reported TIA L SIDED Active [facility] WEAKNESS 4 Medical Center TIA L SIDED Active [facility] WEAKNESS/ABNO 4 Medical RMAL [facility]A Center TRANS CEREB Active [facility] Medications Medication Details Route Status Patient Ordering Order Source Instructions Provider Date Allergies, Adverse Reactions, Alerts Substance Category Reaction Severity Reaction Status Date Comments Source type Reported Immunizations Immunization Date Given Site Status Last Updated Comments Source Results Order Results Value Reference Date Interpretation Comments Source Name Range Brain/Nec Brain/Nec EXAM: CT BRAIN WITHOUT CONTRAST 03/17 - [facility] CTA k CTA /2013 - Medical EXAM: [...] images are provided. COMPARISON: Head CT presence [facility] March 16, 2014 11: 58 p.m. FINDINGS: [...] EXAM: CT BRAIN WITHOUT CONTRAST 03/17 - [facility] Stroke wo Stroke - Medical contrast contrast [...] images are provided. COMPARISON: Head CT presence [facility] March 16, 2014 11: 58 p.m. FINDINGS: [...] EXAM: XR CHEST ONE VIEW: 03/17 - [facility] 1view - Medical This report was dictated by a [employer]/Fellow. I have personally reviewed the images as [...] Number For Provider Date Date Visit Outpatient [id number] SHAR 08/30 [facility] [place] Outpatient [id number] SHAR 09/27 [facility] Outpatient [id number] SHAR 10/11 [facility] Outpatient [id number] SHAR 12/13 [facility] [place] Procedures Procedure Code Date Perfomer Comments Source
--- NOTE | 2018-10-04 17:02 | ER ---
Nurse's Notes [facility] Name: Geovanny Moore Age: 72 yrs Sex: Male : 1945 Arrival Date: 10/04/2018 Time: 15:[address] Private MD: Diagnosis: Vomiting;Diarrhea, unspecified;Chronic obstructive pulmonary disease with (acute) exacerbation;Weakness;Volume depletion;Unspecified kidney failure;Elevated white blood cell count;Type 2 diabetes mellitus;Abdominal tenderness;Pneumonia due to other specified bacteria-atypical pneumonia Presentation: 10/04 15:43 Presenting complaint: EMS states: pt c/o N/V/D x2 days, had a recent episode of tw2 diarrhea 15 mins prior to our arrival, recently dx with PNE, nkda, vs stable, Hx: copd, DM, CHF. Transition of care: patient was not received from another setting of care. Onset of symptoms was October 04, 2018. Risk Assessment: Do you want to hurt yourself or someone else? Patient reports no desire to harm self or others. Initial Sepsis Screen: Does the patient meet any 2 criteria? RR > 20 per min. HR > 90 bpm. Does the patient have a suspected source of infection? Yes: Productive cough/pneumonia. Initial Sepsis Screen: Care prior to arrival: Medication(s) given: Normal saline infusion, 200 ml IV initiated. 20 GA, in the left antecubital area. 15:43 Method Of Arrival: EMS: [facility] tw2 15:43 Acuity: KIARA 3 tw2 Triage Assessment: 15:59 General: Appears in no apparent distress. Behavior is cooperative, appropriate for age. tw2 Pain: Denies pain. GI: Reports diarrhea, nausea, vomiting. Historical: - Allergies: 15:58 Codeine; tw2 - Home Meds: 15:58 aspirin 325 mg Oral TbEC once daily [Active]; benazepril 40 mg Oral tab 1 tab once tw2 daily [Active]; clonazepam 0.5 mg Oral tab 1 tab 3 times per day [Active]; clopidogrel 75 mg Oral tab 1 tab once daily [Active]; furosemide 40 mg Oral tab 1 tab 2 times per day [Active]; glimepiride 1 mg Oral tab 1 tab once daily [Active]; spironolactone 25 mg Oral tab 1 tab 2 times per day [Active]; potassium chloride 10 mEq Oral TbER 1 tab once daily [Active]; Nitrostat 0.4 mg SL subl 1 tab [Active]; losartan 100 mg Oral tab 1 tab once daily [Active]; Perforomist 20 mcg/2 mL inhalation nebu 2 mL 2 times per day [Active]; isosorbide mononitrate 60 mg Oral Tb24 1 tab once daily [Active]; pravastatin 40 mg Oral tab 1 tab once daily [Active]; - PMHx: 15:58 CAD; Diabetes - NIDDM; Hypertension; Myocardial infarction; COPD; defibrillator; CHF; tw2 - Immunization history:: Adult Immunizations. - Social history:: Smoking status: Patient uses tobacco products, smokes two packs cigarettes per day. - Ebola Screening: : Patient denies travel to an Ebola-affected area in the 21 days before illness onset. Screenin:56 Abuse screen: Denies threats or abuse. Nutritional screening: No deficits noted. tw2 Tuberculosis screening: No symptoms or risk factors identified. Fall Risk None identified. Assessment: 15:59 General: Appears in no apparent distress. unkempt, Behavior is cooperative, appropriate tw2 for age, Smells of cigarette smoke. Neuro: Level of Consciousness is awake, alert, obeys commands, Oriented to person, place, time, situation. Cardiovascular: Heart tones S1 S2 Capillary refill < 3 seconds Patient's skin is warm and dry. Respiratory: Airway is patent Respiratory effort is even, unlabored, Respiratory pattern is regular, tachypnea Breath sounds are clear bilaterally. Respiratory: Reports cough that is. GI: Abdomen is round non-distended, Bowel sounds present X 4 quads. Reports diarrhea, nausea, vomiting. : No signs and/or symptoms were reported regarding the genitourinary system. EENT:. Derm: No signs and/or symptoms reported regarding the dermatologic system. Derm: Skin is fragile, Skin is dry, Skin temperature is warm. Musculoskeletal: Range of motion: intact in all extremities. 16:50 Reassessment: Patient appears in no apparent distress at this time. No changes from tw2 previously documented assessment. Patient and/or family updated on plan of care and expected duration. Pain level reassessed. Patient is alert, oriented x 3, equal unlabored respirations, skin warm/dry/pink. provider Dr. Flores at bedside at this time. 17:54 Reassessment: Patient appears in no apparent distress at this time. No changes from tw2 previously documented assessment. Patient and/or family updated on plan of care and expected duration. Pain level reassessed. Patient is alert, oriented x 3, equal unlabored respirations, skin warm/dry/pink. 18:50 Reassessment: Patient appears in no apparent distress at this time. No changes from tw2 previously documented assessment. Patient and/or family updated on plan of care and expected duration. Pain level reassessed. Patient is alert, oriented x 3, equal unlabored respirations, skin warm/dry/pink. 19:00 General: Appears in no apparent distress. uncomfortable, Behavior is calm, cooperative, rr5 appropriate for age. Pain: Complains of pain in abdomen Pain does not radiate. Pain currently is 8 out of 10 on a pain scale. Quality of pain is described as aching, Pain began gradually, Is intermittent. 19:00 Neuro: Level of Consciousness is awake, alert, obeys commands, Oriented to person, rr5 place, time, situation, Appropriate for age. Cardiovascular: Capillary refill < 3 seconds Patient's skin is warm and dry. Respiratory: Airway is patent Respiratory effort is even, with nasal flaring, pursed lip, Respiratory pattern is regular, tachypnea COPD patient. GI: Abdomen is round non-distended, Bowel sounds present X 4 quads. Reports lower abdominal pain, upper abdominal pain, diarrhea, nausea, vomiting. : No signs and/or symptoms were reported regarding the genitourinary system. EENT: No signs and/or symptoms were reported regarding the EENT system. Derm: No signs and/or symptoms reported regarding the dermatologic system. Skin is intact, is fragile, Skin is dry, Skin temperature is warm. Musculoskeletal: Capillary refill < 3 seconds, Range of motion: intact in all extremities. 20:00 Reassessment: Patient appears in no apparent distress at this time. Patient is alert, rr5 oriented x 3, equal unlabored respirations, skin warm/dry/pink. Patient states feeling better. Patient states symptoms have improved. Vital Signs: 15:55 BP 150 / 64; Pulse 99; Resp 28; Temp 97.9(O); Pulse Ox 93% on R/A; Pain 0/10; tw2 16:49 BP 133 / 63; Pulse 96; Resp 19; Pulse Ox 94% on R/A; tw2 17:54 BP 140 / 68; Pulse 87; Resp 24; Pulse Ox 100% on Nebulizer Mask; tw2 18:50 BP 110 / 55; Pulse 63; Resp 22; Pulse Ox 93% on R/A; tw2 19:05 BP 111 / 68; Pulse 65; Resp 23; Temp 98.2; Pulse Ox 95% ; Pain 8/10; rr5 20:00 BP 107 / 68; Pulse 61; Resp 22; Pulse Ox 95% ; Pain 6/10; rr5 20:28 BP 114 / 69; Pulse 97; Resp 22; Pulse Ox 95% on R/A; Pain 3/10; rr5 ED Course: 15:43 Placed in gown. Bed in low position. Side rails up X2. gambling monitor on. Pulse ox on. tw2 NIBP on. Warm blanket given. 15:50 Patient arrived in ED. tw2 15:55 Triage completed. tw2 15:56 Arm band placed on. tw2 16:01 Fatou Metz RN is Primary Nurse. tw2 16:27 Lincoln Flores MD is Attending Physician. adriana 16:58 Luis Eduardo Knott MD is Hospitalizing Provider. [facility] 17:00 EKG done, by perinatal tech. reviewed by Lincoln Flores MD. sm3 17:40 Stool Culture Sent. mh5 17:41 Fecal Leukocyte Stain Sent. mh5 17:41 Procalcitonin Sent. mh5 17:41 Lactate Sent. mh5 17:41 Blood Culture Adult (2) Sent. mh5 17:41 Lipase Sent. mh5 18:57 CT completed. Patient tolerated procedure well. Patient moved to [place]. [place] mi from [place]. 19:05 IV discontinued, infiltrated right IV line at antecubital fossa. rr5 19:07 Report given to ROSAURA Motron - pt is in CT at this time. tw2 20:46 No provider procedures requiring assistance completed. Patient admitted, IV remains in rr5 place. intact, No redness/swelling at site. Pressure dressing applied. Administered Medications: 17:15 Drug: NS 0.9% 500 ml Route: IV; Rate: bolus; Site: right antecubital; tw2 18:01 Follow up: Rate change 125 ml/hr; IV Intake: 500ml tw2 18:02 Follow up: Response: No adverse reaction; IV Status: Completed infusion tw2 17:40 Drug: Zofran 4 mg Route: IVP; Site: left antecubital; tw2 18:40 Follow up: Response: No adverse reaction tw2 17:42 Drug: Albuterol - atroVENT (3:1) (2.5 mg - 0.5 mg) 3 ml Route: Nebulizer; tw2 18:50 Follow up: Response: No adverse reaction tw2 17:45 Drug: SOLU-Medrol 125 mg Route: IVP; Site: left antecubital; tw2 18:50 Follow up: Response: No adverse reaction tw2 17:48 Drug: Rocephin - (cefTRIAXone) 1 grams {Note: ivp available only from pharmacy.} Route: tw2 IVPB; Infused Over: 5 mins; Site: left antecubital; 17:54 Follow up: Response: No adverse reaction; IV Status: Completed infusion tw2 17:54 Drug: Flagyl 500 mg Volume: 100 ml; Route: IVPB; Rate: 200 ml/hr; Infused Over: 30 tw2 mins; Site: left antecubital; 18:25 Follow up: Response: No adverse reaction; IV Status: Completed infusion tw2 18:02 Drug: NS 0.9% 1000 ml Route: IV; Rate: 125 ml/hr; Site: left antecubital; tw2 20:40 Follow up: Response: No adverse reaction; IV Status: Infusion continued upon admission; rr5 IV Intake: 500ml 19:33 Drug: Zofran 4 mg Route: IVP; Site: left antecubital; rr5 20:48 Follow up: Response: No adverse reaction rr5 19:35 Drug: fentaNYL (PF) 25 mcg Route: IVP; Site: left antecubital; rr5 20:49 Follow up: Response: No adverse reaction rr5 19:40 Drug: LevaQUIN 500 mg Volume: 100 ml; Route: IVPB; Infused Over: 60 mins; Site: left rr5 antecubital; 20:40 Follow up: Response: No adverse reaction; IV Status: Completed infusion; IV Intake: rr5 100ml 21:01 Not Given (relieved from pain): fentaNYL (PF) 25 mcg IVP once rr5 Intake: 18:01 IV: 500ml; Total: 500ml. tw2 20:40 IV: 100ml; Total: 600ml. rr5 20:40 IV: 500ml; Total: 1100ml. rr5 Outcome: 17:01 Decision to Hospitalize by Provider. adriana 20:25 Admitted to Tele accompanied by tech, via stretcher, room 423, with chart, Report rr5 called to emily 20:25 Condition: stable rr5 20:25 Instructed on the need for admit. 21:05 Patient left the ED. rr5 Signatures: Lincoln Flores MD MD cha Wise, Tara, RN RN tw2 Jose Hodge Maria [facility] Opal Ambrose 3 Praveen Shaffer, RN RN rr5 Corrections: (The following items were deleted from the chart) 18:56 18:55 BP 110 / 55; Pulse 63bpm; Resp 22bpm; Pulse Ox 93% RA; tw2 tw2 19:07 15:59 General: Appears in no apparent distress. unkempt, Behavior is cooperative, tw2 appropriate for age, tw2 19:11 19:07 Report given to ROSAURA Morton tw2 tw2
--- NOTE | 2018-10-04 17:02 | EDPHYS ---
Physician Documentation [facility] Name: Geovanny Moore Age: 72 yrs Sex: Male : 1945 Arrival Date: 10/04/2018 Time: 15:[address] Private MD: ED Physician Lincoln Flores HPI: 10/04 19:05 This 72 yrs old Male presents to ER via EMS with complaints of adriana Nausea/Vomiting/Diarrhea, Shortness Of Breath. 19:05 The patient presents to the emergency department with nausea. Onset: The adriana symptoms/episode began/occurred 1 day(s) ago. Historical: - Allergies: 15:58 Codeine; tw2 - Home Meds: 15:58 aspirin 325 mg Oral TbEC once daily [Active]; benazepril 40 mg Oral tab 1 tab once tw2 daily [Active]; clonazepam 0.5 mg Oral tab 1 tab 3 times per day [Active]; clopidogrel 75 mg Oral tab 1 tab once daily [Active]; furosemide 40 mg Oral tab 1 tab 2 times per day [Active]; glimepiride 1 mg Oral tab 1 tab once daily [Active]; spironolactone 25 mg Oral tab 1 tab 2 times per day [Active]; potassium chloride 10 mEq Oral TbER 1 tab once daily [Active]; Nitrostat 0.4 mg SL subl 1 tab [Active]; losartan 100 mg Oral tab 1 tab once daily [Active]; Perforomist 20 mcg/2 mL inhalation nebu 2 mL 2 times per day [Active]; isosorbide mononitrate 60 mg Oral Tb24 1 tab once daily [Active]; pravastatin 40 mg Oral tab 1 tab once daily [Active]; - PMHx: 15:58 CAD; Diabetes - NIDDM; Hypertension; Myocardial infarction; COPD; defibrillator; CHF; tw2 - Immunization history:: Adult Immunizations. - Social history:: Smoking status: Patient uses tobacco products, smokes two packs cigarettes per day. - Ebola Screening: : Patient denies travel to an Ebola-affected area in the 21 days before illness onset. ROS: 19:09 Constitutional: Negative for fever, chills, and weight loss, Eyes: Negative for injury, adriana pain, redness, and discharge, ENT: Negative for injury, pain, and discharge, Neck: Negative for injury, pain, and swelling, Cardiovascular: Negative for chest pain, palpitations, and edema, Respiratory: Negative for shortness of breath, cough, wheezing, and pleuritic chest pain, Abdomen/GI: Negative for abdominal pain, nausea, vomiting, diarrhea, and constipation, Back: Negative for injury and pain, : Negative for injury, bleeding, discharge, and swelling, MS/Extremity: Negative for injury and deformity, Skin: Negative for injury, rash, and discoloration, Psych: Negative for depression, anxiety, suicide ideation, homicidal ideation, and hallucinations, Allergy/Immunology: Negative for hives, rash, and allergies, Endocrine: Negative for neck swelling, polydipsia, polyuria, polyphagia, and marked weight changes. 19:09 Neuro: Positive for altered mental status, weakness. Exam: 19:09 Constitutional: This is a well developed, well nourished patient who is awake, alert, adriana and in no acute distress. Head/Face: Normocephalic, atraumatic. Eyes: Pupils equal round and reactive to light, extra-ocular motions intact. Lids and lashes normal. Conjunctiva and sclera are non-icteric and not injected. Cornea within normal limits. Periorbital areas with no swelling, redness, or edema. ENT: Nares patent. No nasal discharge, no septal abnormalities noted. Tympanic membranes are normal and external auditory canals are clear. Oropharynx with no redness, swelling, or masses, exudates, or evidence of obstruction, uvula midline. Mucous membranes moist. Neck: Trachea midline, no thyromegaly or masses palpated, and no cervical lymphadenopathy. Supple, full range of motion without nuchal rigidity, or vertebral point tenderness. No Meningismus. Chest/axilla: Normal chest wall appearance and motion. Nontender with no deformity. No lesions are appreciated. Cardiovascular: Regular rate and rhythm with a normal S1 and S2. No gallops, murmurs, or rubs. Normal PMI, no JVD. No pulse deficits. Respiratory: Lungs have equal breath sounds bilaterally, clear to auscultation and percussion. No rales, rhonchi or wheezes noted. No increased work of breathing, no retractions or nasal flaring. Abdomen/GI: Soft, non-tender, with normal bowel sounds. No distension or tympany. No guarding or rebound. No evidence of tenderness throughout. Back: No spinal tenderness. No costovertebral tenderness. Full range of motion. Male : Normal genitalia with no discharge or lesions. Skin: Warm, dry with normal turgor. Normal color with no rashes, no lesions, and no evidence of cellulitis. MS/ Extremity: Pulses equal, no cyanosis. Neurovascular intact. Full, normal range of motion. Psych: Awake, alert, with orientation to person, place and time. Behavior, mood, and affect are within normal limits. 19:09 Neuro: Orientation: is normal, appropriate for stated age, no acute changes, Mentation: is normal, appropriate for stated age, no acute changes, Memory: is normal, Cranial nerves: grossly normal, is grossly normal based on the patient's age, no acute changes, Motor: moves all fours, Gait: not tested. Babinski testing is normal, seizure activity. Vital Signs: 15:55 BP 150 / 64; Pulse 99; Resp 28; Temp 97.9(O); Pulse Ox 93% on R/A; Pain 0/10; tw2 16:49 BP 133 / 63; Pulse 96; Resp 19; Pulse Ox 94% on R/A; tw2 17:54 BP 140 / 68; Pulse 87; Resp 24; Pulse Ox 100% on Nebulizer Mask; tw2 18:50 BP 110 / 55; Pulse 63; Resp 22; Pulse Ox 93% on R/A; tw2 19:05 BP 111 / 68; Pulse 65; Resp 23; Temp 98.2; Pulse Ox 95% ; Pain 8/10; rr5 20:00 BP 107 / 68; Pulse 61; Resp 22; Pulse Ox 95% ; Pain 6/10; rr5 20:28 BP 114 / 69; Pulse 97; Resp 22; Pulse Ox 95% on R/A; Pain 3/10; rr5 MDM: 16:27 Patient medically screened. [facility] 19:12 Data reviewed: vital signs, nurses notes, lab test result(s), EKG, radiologic studies, [facility] CT scan, MRI, plain films. 10/04 16:57 Order name: Basic Metabolic Panel; Complete Time: 18:00 [facility] 10/04 16:57 Order name: CBC with Diff; Complete Time: 18:52 [facility] 10/04 16:57 Order name: LFT's; Complete Time: 18:00 [facility] 10/04 16:57 Order name: Magnesium; Complete Time: 18:00 [facility] 10/04 16:57 Order name: NT PRO-BNP; Complete Time: 18:00 [facility] 10/04 16:57 Order name: PT-INR; Complete Time: 17:44 [facility] 10/04 16:57 Order name: Troponin (emerg Dept Use Only); Complete Time: 18:00 [facility] 10/04 16:57 Order name: Stool Culture [facility] 10/04 16:57 Order name: Fecal Leukocyte Stain [facility] 10/04 16:57 Order name: Lipase; Complete Time: 18:00 [facility] 10/04 16:57 Order name: Blood Culture Adult (2) [facility] 10/04 16:57 Order name: Lactate; Complete Time: 18:00 [facility] 10/04 16:57 Order name: Procalcitonin; Complete Time: 18:52 [facility] 10/04 16:57 Order name: Urine Culture [facility] 10/04 16:57 Order name: XRAY Chest (1 view) [facility] 10/04 16:57 Order name: CT Abd/Pelvis - W/Contrast [facility] 10/04 18:24 Order name: CBC Smear Scan; Complete Time: 18:52 [facility] 10/04 19:15 Order name: CT; Complete Time: 19:16 [facility] 10/04 19:17 Order name: RAD; Complete Time: 19:25 [facility] 10/04 16:57 Order name: EKG; Complete Time: 16:59 [facility] 10/04 16:57 Order name: Cardiac monitoring; Complete Time: 16:58 [facility] 10/04 16:57 Order name: EKG - Nurse/Tech; Complete Time: 16:58 [facility] 10/04 16:57 Order name: IV Saline Lock; Complete Time: 16:58 [facility] 10/04 16:57 Order name: Labs collected and sent; Complete Time: 17:38 [facility] 10/04 16:57 Order name: O2 Per Protocol; Complete Time: 16:58 [facility] 10/04 16:57 Order name: O2 Sat Monitoring; Complete Time: 16:58 [facility] Administered Medications: 17:15 Drug: NS 0.9% 500 ml Route: IV; Rate: bolus; Site: right antecubital; tw2 18:01 Follow up: Rate change 125 ml/hr; IV Intake: 500ml tw2 18:02 Follow up: Response: No adverse reaction; IV Status: Completed infusion tw2 17:40 Drug: Zofran 4 mg Route: IVP; Site: left antecubital; tw2 18:40 Follow up: Response: No adverse reaction tw2 17:42 Drug: Albuterol - atroVENT (3:1) (2.5 mg - 0.5 mg) 3 ml Route: Nebulizer; tw2 18:50 Follow up: Response: No adverse reaction tw2 17:45 Drug: SOLU-Medrol 125 mg Route: IVP; Site: left antecubital; tw2 18:50 Follow up: Response: No adverse reaction tw2 17:48 Drug: Rocephin - (cefTRIAXone) 1 grams {Note: ivp available only from pharmacy.} Route: tw2 IVPB; Infused Over: 5 mins; Site: left antecubital; 17:54 Follow up: Response: No adverse reaction; IV Status: Completed infusion tw2 17:54 Drug: Flagyl 500 mg Volume: 100 ml; Route: IVPB; Rate: 200 ml/hr; Infused Over: 30 tw2 mins; Site: left antecubital; 18:25 Follow up: Response: No adverse reaction; IV Status: Completed infusion tw2 18:02 Drug: NS 0.9% 1000 ml Route: IV; Rate: 125 ml/hr; Site: left antecubital; tw2 20:40 Follow up: Response: No adverse reaction; IV Status: Infusion continued upon admission; rr5 IV Intake: 500ml 19:33 Drug: Zofran 4 mg Route: IVP; Site: left antecubital; rr5 20:48 Follow up: Response: No adverse reaction rr5 19:35 Drug: fentaNYL (PF) 25 mcg Route: IVP; Site: left antecubital; rr5 20:49 Follow up: Response: No adverse reaction rr5 19:40 Drug: LevaQUIN 500 mg Volume: 100 ml; Route: IVPB; Infused Over: 60 mins; Site: left rr5 antecubital; 20:40 Follow up: Response: No adverse reaction; IV Status: Completed infusion; IV Intake: rr5 100ml 21:01 Not Given (relieved from pain): fentaNYL (PF) 25 mcg IVP once rr5 Disposition: 10/04/18 17:01 Hospitalization ordered by Luis Eduardo Knott for Inpatient Admission. Preliminary diagnosis are Vomiting, Diarrhea, unspecified, Chronic obstructive pulmonary disease with (acute) exacerbation, Weakness, Volume depletion, Unspecified kidney failure, Elevated white blood cell count, Type 2 diabetes mellitus, Abdominal tenderness, Pneumonia due to other specified bacteria - atypical pneumonia. - Bed requested for Telemetry/MedSurg (Inpatient). - Status is Inpatient Admission. rr5 - Condition is Fair. - Problem is new. - Symptoms have improved. UTI on Admission? No Signatures: Dispatcher [employer] EDMS Surekha Baig RN RN Lincoln Leon MD MD cha Wise, Tara, RN RN tw2 Praveen Shaffer RN RN rr5 Corrections: (The following items were deleted from the chart) 17:22 17:01 Hospitalization Ordered by Luis Eduardo Knott MD for Inpatient Admission. Preliminary [facility] diagnosis is Vomiting; Diarrhea, unspecified; Chronic obstructive pulmonary disease with (acute) exacerbation; Weakness; Volume depletion. Bed requested for Telemetry/MedSurg (Inpatient). Status is Inpatient Admission. Condition is Fair. Problem is new. Symptoms have improved. UTI on Admission? No. adriana 17:43 17:22 10/04/2018 17:01 Hospitalization Ordered by Luis Eduardo Knott MD for Inpatient dw Admission. Preliminary diagnosis is Vomiting; Diarrhea, unspecified; Chronic obstructive pulmonary disease with (acute) exacerbation; Weakness; Volume depletion; Unspecified kidney failure. Bed requested for Telemetry/MedSurg (Inpatient). Status is Inpatient Admission. Condition is Fair. Problem is new. Symptoms have improved. UTI on Admission? No. adriana 18:04 17:43 10/04/2018 17:01 Hospitalization Ordered by Luis Eduardo Knott MD for Inpatient adriana Admission. Preliminary diagnosis is Vomiting; Diarrhea, unspecified; Chronic obstructive pulmonary disease with (acute) exacerbation; Weakness; Volume depletion; Unspecified kidney failure. Bed requested for Telemetry/MedSurg (Inpatient). Status is Inpatient Admission. Condition is Fair. Problem is new. Symptoms have improved. UTI on Admission? No. dw 19:16 18:04 10/04/2018 17:01 Hospitalization Ordered by Luis Eduardo Knott MD for Inpatient adriana Admission. Preliminary diagnosis is Vomiting; Diarrhea, unspecified; Chronic obstructive pulmonary disease with (acute) exacerbation; Weakness; Volume depletion; Unspecified kidney failure; Elevated white blood cell count; Type 2 diabetes mellitus. Bed requested for Telemetry/MedSurg (Inpatient). Status is Inpatient Admission. Condition is Fair. Problem is new. Symptoms have improved. UTI on Admission? No. adriana 19:18 19:16 10/04/2018 17:01 Hospitalization Ordered by Luis Eduardo Knott MD for Inpatient adriana Admission. Preliminary diagnosis is Vomiting; Diarrhea, unspecified; Chronic obstructive pulmonary disease with (acute) exacerbation; Weakness; Volume depletion; Unspecified kidney failure; Elevated white blood cell count; Type 2 diabetes mellitus; Abdominal tenderness. Bed requested for Telemetry/MedSurg (Inpatient). Status is Inpatient Admission. Condition is Fair. Problem is new. Symptoms have improved. UTI on Admission? No. adriana 21:05 19:18 10/04/2018 17:01 Hospitalization Ordered by Luis Eduardo Knott MD for Inpatient rr5 Admission. Preliminary diagnosis is Vomiting; Diarrhea, unspecified; Chronic obstructive pulmonary disease with (acute) exacerbation; Weakness; Volume depletion; Unspecified kidney failure; Elevated white blood cell count; Type 2 diabetes mellitus; Abdominal tenderness; Pneumonia due to other specified bacteria - atypical pneumonia. Bed requested for Telemetry/MedSurg (Inpatient). Status is Inpatient Admission. Condition is Fair. Problem is new. Symptoms have improved. UTI on Admission? No. adriana
[2018-10-04] MEDS ORDERED: NA CHLORIDE 0.9% 1,000 ML ONE (17:08)
[2018-10-04 17:34] LABS: Protime INR 1.05
[2018-10-04 17:46] LABS: Albumin 3.8 g/dL (3.4-5.0); Bilirubin Direct 0.3 mg/dL (0-0.2); Bilirubin Total 0.8 mg/dL (0.2-1.0); Magnesium 1.9 mg/dL (1.8-2.4); Potassium 3.9 mmol/L (3.5-5.1); Protein, Total 8.5 g/dL (6.4-8.2); Troponin (Emerg Dept Use Only) 0.23 ng/mL (0.0-0.045)
[2018-10-04 17:47] LABS: Absolute Monocytes 1.4 K/uL (0.1-1.3); Absolute Neutrophil 21.1 K/uL (1.8-8.0); Basophils % 0.3 % (0-1.3); Eosinophils % 0.1 % (0-4.4); Hematocrit 50.2 % (39.6-49.0); Lymphocytes % 4.2 % (15.3-44.8); MPV 10.1 fL (7.6-11.3); Monocytes % 6.1 % (3.3-12.3); RBC Red Blood Cell Count 5.73 M/uL (4.33-5.43)
[2018-10-04] MEDS ORDERED: CEFTRIAXONE/SWI 1gm 1 GM/10 ML SYR ONE (17:53)
[2018-10-04] MEDS ORDERED: IPRATROPIUM BROM 0.5MG/2.5ML ONE (17:53)
[2018-10-04] MEDS ORDERED: ONDANSETRON 4 MG/2 ML VIAL ONE ×2 (17:53→19:47)
[2018-10-04] MEDS ORDERED: METHYLPREDNISOLONE 125 MG INJ ONE (17:53)
[2018-10-04] MEDS ORDERED: ALBUTEROL 2.5 MG/3 ML NEB SOL ONE (17:53)
[2018-10-04] MEDS ORDERED: METRONIDAZOLE 500mg IVPB 500 MG/100 ML BAG IV ONE (17:53)
[2018-10-04 18:19] LABS: Blood Morphology Comment NOT SEEN (NOT SEEN); Platelet Estimate ADEQ; Platelets, Giant FEW; Urine White Blood Cell Casts OK
--- NOTE | 2018-10-04 19:03 | EKG ---
Test Date: 2018-10-04 Test Time: 16:57:09 Beamster: ERIK MEASUREMENT RESULTS: Intervals: Rate: 87 ND: QRSD: 178 QT: 466 QTc: 560 [place]: P: ND: QRS: -82 T: 103 INTERPRETIVE STATEMENTS: Electronic ventricular pacemaker Compared to ECG 09/20/2018 09:27:25 Atrial-sensed ventricular-paced complex(es) or rhythm no longer present Electronically Signed On 10-04-18 19:02:37 INFECTIOUS WASTE TECHNICIAN by Sean Plummer
--- NOTE | 2018-10-04 19:13 | RAD REPORT ---
EXAM DESCRIPTION: CT - Abdomen Pelvis Wo Contrast - 10/04/2018 6:57 pm CLINICAL HISTORY: Abdominal pain with vomiting COMPARISON: 2014 TECHNIQUE: Computed axial tomography of the abdomen and pelvis was obtained. IV was not requested. O ral contrast was given. Coronal reconstructions performed. All CT scans are performed using dose optimization technique as appropriate and may include automated exposure control or mA/KV adjustment according to patient size. FINDINGS: The evaluation of solid organs and vessels is limited secondary to the lack of contrast a dministration. Moderate bibasilar tree-in-bud opacities within the lungs The liver, spleen, pancreas, adrenals and kidneys appear grossly normal. The appendix is normal. There is no evidence of diverticulitis. Diffuse arterial calcifications. Small umbilical hernia containing fat IMPRESSION: Moderate bibasilar tree-in-bud opacities within the lungs may indicate an atypical pneum onia
--- NOTE | 2018-10-04 19:14 | RAD REPORT ---
EXAM DESCRIPTION: [place] Single View10/04/2018 6:35 pm CLINICAL HISTORY: Cough COMPARISON: September 21, 2018 FINDINGS: Mild reticulonodular opacities within the lung bases. The heart is mildly enlarged. Pacemaker leads are in place. IMPRESSION: Mild reticulonodular opacities lung bases may indicate an atypical pneumonia
[2018-10-04] MEDS ORDERED: Levofloxacin500mg IV 500 MG/100 ML BAG IV ONE (19:47)
[2018-10-04] MEDS ORDERED: FENTANYL CITR 100 MCG/2 ML ONE (19:47)
[2018-10-04] MEDS ORDERED: NA CHLORIDE 0.9% 1,000 ML IV SCH ×2 (21:22→23:45)
[2018-10-04] MEDS: METRONIDAZOLE 500mg IVPB 500 MG/100 ML BAG IV SCH ×2 (21:22→23:59)
[2018-10-04] MEDS ORDERED: IPRATROPIUM BROM 0.5MG/2.5ML NEB PRN (21:22)
[2018-10-04] MEDS ORDERED: FENTANYL CITR 100 MCG/2 ML IV PRN (21:22)
[2018-10-04] MEDS ORDERED: ALBUTEROL 2.5 MG/3 ML NEB SOL NEB PRN (21:22)
[2018-10-04] MEDS: Levofloxacin 250mg IV 250 MG/50 ML BAG IV SCH (21:22)
[2018-10-04] MEDS ORDERED: ACETAMINOPHEN 500 MG TAB PO PRN (21:22)
[2018-10-04] MEDS ORDERED: ONDANSETRON 4 MG/2 ML VIAL IV PRN (21:22)
[2018-10-04] MEDS: FAMOTIDINE 20 MG/2 ML VIAL IV SCH (22:01)
[2018-10-04] MEDS: IPRATROPIUM BROM 0.5MG/2.5ML NEB SCH (23:45)
[2018-10-04] MEDS: ALBUTEROL 2.5 MG/3 ML NEB SOL NEB SCH (23:45)
[2018-10-05 01:56] LABS: Urine Appearance CLEAR; Urine Bilirubin NEGATIVE (NEG); Urine Blood NEGATIVE (NEG); Urine Color YELLOW; Urine Glucose NEGATIVE (NEG); Urine Microscopic Reflex ORDER UMIC; Urine Protein 1+ (NEG); Urine Urobilinogen 0.2 mg/dL (0.2-1.0)
[2018-10-05 02:05] LABS: Urine Bacteria <20 /HPF (NONE SEEN); Urine Culture Reflex Order NOT NEEDED; Urine RBC NONE SEEN /HPF (NONE SEEN)
[2018-10-05] MEDS: METRONIDAZOLE 500mg IVPB 500 MG/100 ML BAG IV SCH ×3 (05:19→17:22)
[2018-10-05 05:30] LABS: Absolute Lymphocytes (CBC) 0.8 K/uL (0.7-4.9); Absolute Monocytes 0.2 K/uL (0.1-1.3); Absolute Neutrophil 13.7 K/uL (1.8-8.0); Basophils % 0.1 % (0-1.3); Hematocrit 45.9 % (39.6-49.0); Lymphocytes % 5.1 % (15.3-44.8); Monocytes % 1.5 % (3.3-12.3); RBC Red Blood Cell Count 5.12 M/uL (4.33-5.43)
[2018-10-05 05:48] LABS: Potassium 3.7 mmol/L (3.5-5.1)
--- NOTE | 2018-10-05 07:46 | EKG ---
Test Date: 2018-10-05 Test Time: 05:29:08 Compliance Director: RT MEASUREMENT RESULTS: Intervals: Rate: 81 NV: 88 QRSD: 192 QT: 502 QTc: 583 [place]: P: 66 NV: 88 QRS: -76 T: 115 INTERPRETIVE STATEMENTS: Rhythm consistent with DDD pacing Underlying sinus rhythm with frequent premature ventricular complexes Compared to ECG 10/04/2018 16:57:09 No significant changes Electronically Signed On 10-05-18 07:45:30 SKI EDGE PAINTER by Willy Morel
[2018-10-05] MEDS ORDERED: INFLUENZA VACCINE (for 3y+) 0.5 ML DOSE IMVAC ONE (08:00)
[2018-10-05] MEDS: IPRATROPIUM BROM 0.5MG/2.5ML NEB SCH ×3 (08:00→20:00)
[2018-10-05] MEDS: ALBUTEROL 2.5 MG/3 ML NEB SOL NEB SCH ×3 (08:00→20:00)
[2018-10-05] MEDS: FAMOTIDINE 20 MG/2 ML VIAL IV SCH (08:22)
[2018-10-05] MEDS: METHYLPREDNISOLONE 40 MG INJ IV SCH ×3 (08:22→16:22)
[2018-10-05] MEDS: CEFTRIAXONE/SWI 1gm 1 GM/10 ML SYR IV SCH (08:23)
--- NOTE | 2018-10-05 08:54 | RAD REPORT ---
EXAM DESCRIPTION: [place] Single View10/05/2018 6:45 am CLINICAL HISTORY: Chest pain COMPARISON: October 04 FINDINGS: Mild bibasilar reticulonodular opacities without significant change The heart is mildly enlarged. Pacemaker leads are in place. IMPRESSION: Mild bibasilar reticulonodular opacities probably indicate an atypical infection
[2018-10-05] MEDS: MORPHINE 2 MG/ML SYR IV PRN (08:55)
[2018-10-05] MEDS ORDERED: ASPIRIN EC 81 MG TAB PO SCH (09:00)
[2018-10-05] MEDS ORDERED: CEFTRIAXONE 1 GM/NS 50 ML 1 GM/50 ML BAG IV SCH (09:00)
[2018-10-05] MEDS ORDERED: D50W 25 GM/50 ML SYRINGE IV PRN (09:12)
[2018-10-05] MEDS ORDERED: GLUCAGON 1 MG/VIAL IM PRN (09:12)
[2018-10-05] MEDS ORDERED: TRAMADOL HCL 50 MG TAB PO PRN (11:01)
[2018-10-05] MEDS: INSULIN -REGULAR HUMAN 50 UNIT/0.5 ML ML SQ SCH ×3 (12:02→21:48)
[2018-10-05] MEDS: NA CHLORIDE 0.9% 1,000 ML IV SCH (13:00)
[2018-10-05] MEDS: GABAPENTIN 300 MG CAP PO SCH ×2 (14:15→21:50)
--- NOTE | 2018-10-05 15:35 | CON ---
Reason For Cardiology Consult: History of heart disease. History Of Present Illness: Mr. Moore started having diarrhea that was uncontrollable. He was not ab le to get to the bathroom, soiling himself, having so many runs of diarrhea. He was getting weak, so we came to the hospital. He has a history of heart disease. The last time we measured his ejection fraction, it was 40%. He has had multiple stents. He was considered by the people who put the sten ts in, inoperable, because of diffuse distal CAD. We do not actually have those reports. It is a se cond or divisional merchandising manager information we have. The patient is not having angina, he is not short of breath. His main problem is he has been debilitated by diarrhea. Physical Examination: General: 6 feet 2 inches, 215 pounds, mildly overweight, appears to be in no acute distress. Lungs: Reveal some crackles. Heart: Reveals a regular rate and rhythm. Abdomen: Soft. Extremities: Trace edema. Diagnostic Data: His chest x-ray reveals a reticulonodular pattern that is new compared to the EKGs about 3 weeks ago. Laboratory Data: Indicates a very high white blood cell count. Impression/recommendation: It is believed that Mr. Moore has pneumonia complicated by diarrhea. I am not sure the reason for the diarrhea, but his heart is stable at this point. There is no need for a n intervention or a repeat echo or defibrillator checkup at this point, and all seems to be working as planned. SAKINA Voice ID: [id number] Report ID: [id number]
[2018-10-05] MEDS ORDERED: POTASSIUM CL SA 10 MEQ TAB PO ONE (17:00)
[2018-10-05] MEDS: NITROGLYCERIN 0.4 MG/TAB SL PRN ×3 (21:31→21:57)
[2018-10-05] MEDS: Levofloxacin 250mg IV 250 MG/50 ML BAG IV SCH (21:49)
[2018-10-05] MEDS: ATORVASTATIN 10 MG TAB PO SCH (21:50)
[2018-10-05] MEDS: SPIRONOLACTONE 25 MG TABLET PO SCH (21:50)
--- NOTE | 2018-10-05 22:17 | HP ---
Date of Admission: 10/04/2018 History Of Present Illness: A 72-year-old male with multiple medical problems including type 2 diabe loretta, COPD, and coronary artery disease. He started feeling increased coughing and also production of green sputum for a few days before he presented to the emergency room. However, the day he presente d to emergency room, he also on top of that started having nausea and vomiting and had soft to watery stools about 3 that day; and so, that is why he came to emergency room for. He also felt febrile, a nd he checked his temperature one time. It was 100.2, but he had no chills. In the emergency room w [facility], the patient had bilateral atypical pneumonia likely, and we went ahead and admitted him for th at. Review of Systems: Cardiovascular: The patient has stable angina, for which he takes nitroglycerin p.r.n. This has not changed for him. He had no palpitation. Respiratory: Shortness of breath along with increased coughing. Gastrointestinal: Also as above. Neurological: No complaint. Genitourinary: No complaint. Skeletomuscular: No complaint. Past Medical History: Includes; 1.Coronary artery disease with stable angina. 2.Ventricular pacemaker placement. 3.Type 2 diabetes mellitus. 4.COPD. 5.Hypertension. 6.Systolic congestive heart failure. 7.Hyperlipidemia. Social History: The patient continues to smoke daily, about 1 to 2 packs a day. Denies alcohol or d rug abuse history. Family History: Noncontributing. Home Medications: Include Lasix 40 mg p.o. daily, glimepiride 1 mg p.o. daily, potassium chloride 10 mEq p.o. daily, aspirin 325 mg p.o. daily, Plavix 300 mg p.o. daily, Cymbalta 30 mg p.o. daily, seamus pentin 600 mg p.o. t.i.d., isosorbide mononitrate 60 mg p.o. daily, losartan 100 mg p.o. daily, nitro glycerin 0.4 mg sublingual p.r.n. chest pain, pravastatin 40 mg p.o. daily, spironolactone 25 mg p.o. b.i.d., and tramadol 50 mg p.o. b.i.d. p.r.n. Allergies: CODEINE. Physical Examination: Vital Signs: Blood pressure 150/60, pulse 86, and temperature 99.6. Heart: Regular rate and rhythm. Chest: Bibasilar crackles. Abdomen: Soft, nontender. No rigidity. No rebound. Bowel sounds are active. Extremities: No edema. No cyanosis. Peripheral pulses are felt. Neurological: Alert, oriented, nonfocal. Grossly intact. Room air pulse oximetry is 92%. Imaging/laboratory Data: Chest x-ray showed mild reticulonodular opacities on the lung bases, indica tion of atypical pneumonia. Abdomen and pelvic CT showed no intraabdominal acute pathology. However , it showed the bibasilar tree-in-bud opacities at the lung bases for atypical pneumonia. EKG showed electronic ventricular pacemaker. White cell count was 23.7, dropped down to 14.7; hemoglobin 14.7; hematocrit 45.9; and platelets 256. Chemistry; BUN 37, creatinine 2.72. Troponin 0.21 and 0.24. B ANATOMIC PATHOLOGIST 5982. Prolactin 1.26. Urinalysis; total protein 1+. Assessment And Plan: 1.Atypical pneumonia, bibasilar. 2.Nausea, vomiting, and diarrhea, likely reaction to the patient's febrile illness and pneumonia. S o far, his stools showed no white blood cells, and his abdominal CT is nonrevealing. He is improving on current antibiotics. Microbiology is still pending for stools and for blood. We will continue g entle hydration for the patient. 3.Atypical pneumonia. The patient is currently on Levaquin IV antibiotic. However, he is also on F lagyl and Rocephin IV. We will continue those until his stool sensitivity and culture are known. 4.Chronic medical problems. We will put the patient on regular insulin sliding scale. 5.Coronary artery disease, with stable angina, with increased troponin. Dr. Morel has been asked t o see the patient with us for that. 6.Renal insufficiency, likely prerenal azotemia from dehydration. It is expected to improve with hy dration. However, the patient has a baseline of chronic renal insufficiency due to his multiple medi martha problems. Look orders for details. MFS/MODL Voice ID: [id number]
[2018-10-06] MEDS: METRONIDAZOLE 500mg IVPB 500 MG/100 ML BAG IV SCH ×3 (00:47→12:20)
[2018-10-06] MEDS: METHYLPREDNISOLONE 40 MG INJ IV SCH ×3 (01:53→16:57)
[2018-10-06] MEDS: IPRATROPIUM BROM 0.5MG/2.5ML NEB SCH ×4 (02:00→20:00)
[2018-10-06] MEDS: ALBUTEROL 2.5 MG/3 ML NEB SOL NEB SCH ×4 (02:00→20:00)
[2018-10-06 04:25] LABS: Absolute Lymphocytes (CBC) 0.5 K/uL (0.7-4.9); Absolute Monocytes 0.6 K/uL (0.1-1.3); Basophils % 0.2 % (0-1.3); Hematocrit 37.1 % (39.6-49.0); Lymphocytes % 3.2 % (15.3-44.8); Monocytes % 4.4 % (3.3-12.3); RBC Red Blood Cell Count 4.22 M/uL (4.33-5.43)
[2018-10-06 04:55] LABS: Phosphorus 3.7 mg/dL (2.5-4.9)
[2018-10-06 05:19] VITALS: BMI 28.5
[2018-10-06] MEDS: NA CHLORIDE 0.9% 1,000 ML IV SCH ×3 (06:32→12:00)
[2018-10-06] MEDS: NITROGLYCERIN 0.4 MG/TAB SL PRN (08:00)
[2018-10-06] MEDS: LOSARTAN POTASSIUM 50 MG TABLET PO SCH (08:38)
[2018-10-06] MEDS: DULOXETINE 30 MG CAP PO SCH (08:38)
[2018-10-06] MEDS: GABAPENTIN 300 MG CAP PO SCH ×3 (08:38→21:44)
[2018-10-06] MEDS: SPIRONOLACTONE 25 MG TABLET PO SCH ×2 (08:38→21:43)
[2018-10-06] MEDS: FAMOTIDINE 20 MG/2 ML VIAL IV SCH (08:39)
[2018-10-06] MEDS: INSULIN -REGULAR HUMAN 50 UNIT/0.5 ML ML SQ SCH ×4 (08:39→21:42)
[2018-10-06] MEDS: ASPIRIN 325 MG TAB PO SCH (08:39)
[2018-10-06] MEDS: CLOPIDOGREL 75 MG TABLET PO SCH (08:39)
[2018-10-06] MEDS: CEFTRIAXONE/SWI 1gm 1 GM/10 ML SYR IV SCH (08:39)
[2018-10-06] MEDS: ISOSORBIDE MONO SR 60 MG TAB PO SCH (08:39)
--- NOTE | 2018-10-06 08:44 | EKG ---
Test Date: 2018-10-05 Test Time: 22:42:45 Financial Solutions Advisor: RT MEASUREMENT RESULTS: Intervals: Rate: 91 AK: 104 QRSD: 198 QT: 428 QTc: 526 [place]: P: AK: 104 QRS: 106 T: -87 INTERPRETIVE STATEMENTS: Demand pacemaker, interpretation is based on intrinsic rhythm Sinus rhythm with marked sinus arrhythmia with short AK with premature ventricular complexes or fusion complexes Nonspecific intraventricular block Possible Right ventricular hypertrophy Marked T wave abnormality, consider inferior ischemia Marked T wave abnormality, consider anterolateral ischemia Abnormal ECG Compared to ECG 10/05/2018 05:29:08 Fusion complex(es) now present Short AK interval now present T-wave abnormality now present Possible ischemia now present AV dual-paced complex(es) or rhythm no longer present Electronically Signed On 10-06-18 08:43:21 CURB HOP by Sean Plummer
--- NOTE | 2018-10-06 12:35 | PN ---
Subjective: The patient is feeling better today. He has less shortness of breath. He is hungry and his appetite is good. He has no nausea or vomiting. Yesterday, he had only 2 bowel motions, soft a nd this morning had only 1 soft BM. No abdominal aching. Objective: Vital Signs: The patient's blood pressure 143/94, pulse 82, temperature 97.9. Heart: Regular rate and rhythm. Chest: Mild end-expiratory wheezing. Abdomen: Soft, nontender. No rigidity. No rebound. Bowel sounds are normoactive. Extremities: No edema. No cyanosis. Peripheral pulses are felt. Neurologic: Alert, oriented, nonfocal. Grossly intact. Laboratory Data: Microbiology: Blood cultures, no growth to date. Stool cultures pending. CBC: White cell count 14.2, hemoglobin 12.1, hematocrit 37.1, platelets 189, neutrophils 92.2. Chemistry: BUN 55. Creatinine 2.53, slight drop from yesterday. Assessment And Plan: 1.Diarrhea, gradually resolving. 2.Bibasilar atypical pneumonia responding to current antibiotics. We will continue that. 3.Chronic obstructive pulmonary disease exacerbation, getting controlled. 4.Coronary artery disease. Appreciate Dr. Morel's input and recommendation. No further workup at this time from that standpoint. We will continue the patient on his current medications. 5.Type 2 diabetes. We will continue the patient on regular insulin sliding scale. Blood sugar fing ersticks being noted. We will go ahead and check chest x-ray tomorrow. Expect discharge in 1-2 days. MFS/MODL Voice ID: [id number] Report ID: [id number]
[2018-10-06] MEDS: Levofloxacin 250mg IV 250 MG/50 ML BAG IV SCH (21:42)
[2018-10-06] MEDS: ATORVASTATIN 10 MG TAB PO SCH (21:44)
[2018-10-07] MEDS: METHYLPREDNISOLONE 40 MG INJ IV SCH ×2 (01:53→10:09)
[2018-10-07] MEDS: NA CHLORIDE 0.9% 1,000 ML IV SCH ×2 (01:53→20:45)
[2018-10-07] MEDS: IPRATROPIUM BROM 0.5MG/2.5ML NEB SCH ×4 (02:00→20:05)
[2018-10-07] MEDS: ALBUTEROL 2.5 MG/3 ML NEB SOL NEB SCH ×4 (02:00→20:05)
[2018-10-07 06:27] LABS: Absolute Lymphocytes (CBC) 0.5 K/uL (0.7-4.9); Absolute Monocytes 0.7 K/uL (0.1-1.3); Absolute Neutrophil 10.8 K/uL (1.8-8.0); Basophils % 0.1 % (0-1.3); Hematocrit 40.4 % (39.6-49.0); Lymphocytes % 4.1 % (15.3-44.8); MPV 10.2 fL (7.6-11.3); Monocytes % 5.5 % (3.3-12.3); RBC Red Blood Cell Count 4.49 M/uL (4.33-5.43)
[2018-10-07 06:45] LABS: Potassium 4.9 mmol/L (3.5-5.1)
--- NOTE | 2018-10-07 07:13 | RAD REPORT ---
EXAM DESCRIPTION: RAD - Chest Single View - 10/07/2018 6:26 am CLINICAL HISTORY: Pneumonia COMPARISON: October 05, October 04 TECHNIQUE: AP portable chest image was obtained 0624 hours . FINDINGS: Interstitial pattern is similar to slightly worse than the prior day study. No focal conso lidation. Heart size and vasculature are stable. No measurable pleural effusion and no pneumothorax. No acute bony abnormality seen. No acute aortic findings suspected. IMPRESSION: Interstitial edema or infiltrate pattern similar or slightly worse than October 05. Differential between the studies is minimal.
[2018-10-07] MEDS: NITROGLYCERIN 0.4 MG/TAB SL PRN ×3 (08:50→09:14)
[2018-10-07] MEDS ORDERED: METOPROLOL TARTRATE 5 MG/5 ML INJ IV STA (09:30)
[2018-10-07] MEDS: ASPIRIN 325 MG TAB PO SCH (09:46)
[2018-10-07] MEDS: CLOPIDOGREL 75 MG TABLET PO SCH (09:46)
[2018-10-07] MEDS: CEFTRIAXONE/SWI 1gm 1 GM/10 ML SYR IV SCH (09:46)
[2018-10-07] MEDS: GABAPENTIN 300 MG CAP PO SCH ×3 (09:46→20:43)
[2018-10-07] MEDS: LOSARTAN POTASSIUM 50 MG TABLET PO SCH (09:46)
[2018-10-07] MEDS: FAMOTIDINE 20 MG/2 ML VIAL IV SCH (09:46)
[2018-10-07] MEDS: DULOXETINE 30 MG CAP PO SCH (09:46)
[2018-10-07] MEDS ORDERED: METOPROLOL TAR 25 MG TAB PO ONE (10:00)
[2018-10-07] MEDS: SPIRONOLACTONE 25 MG TABLET PO SCH ×2 (10:09→20:43)
[2018-10-07] MEDS: ISOSORBIDE MONO SR 60 MG TAB PO SCH (10:10)
[2018-10-07] MEDS: INSULIN -REGULAR HUMAN 50 UNIT/0.5 ML ML SQ SCH ×4 (10:10→20:45)
[2018-10-07] MEDS: MORPHINE 2 MG/ML SYR IV PRN (11:10)
--- NOTE | 2018-10-07 13:53 | EKG ---
Test Date: 2018-10-07 Test Time: 09:43:09 [employer] Cook: ANDREA MEASUREMENT RESULTS: Intervals: Rate: 119 NC: QRSD: 162 QT: 334 QTc: 469 [place]: P: NC: QRS: 29 T: 212 INTERPRETIVE STATEMENTS: Demand pacemaker, interpretation is based on intrinsic rhythm Atrial fibrillation with rapid ventricular response with premature ventricular or aberrantly conducted complexes Nonspecific intraventricular block Abnormal ECG Compared to ECG 10/07/2018 09:01:43 no significant change from previous ECG Electronically Signed On 10-07-18 13:51:53 CDL A DRIVER by Willy Morel
--- NOTE | 2018-10-07 13:53 | EKG ---
Test Date: 2018-10-07 Test Time: 09:01:43 Roster Clerk: ANDREA MEASUREMENT RESULTS: Intervals: Rate: 131 MA: QRSD: 188 QT: 326 QTc: 481 [place]: P: MA: QRS: 35 T: 209 INTERPRETIVE STATEMENTS: Atrial fibrillation with rapid ventricular response with premature ventricular or aberrantly conducted complexes Left bundle branch block Abnormal ECG Compared to ECG 10/05/2018 22:42:45 Left bundle-branch block now present Ventricular-paced complex(es) or rhythm no longer present Sinus rhythm no longer present Electronically Signed On 10-07-18 13:52:14 [facility] [employer] by Willy Morel
--- NOTE | 2018-10-07 14:21 | PN ---
Mr. Moore seems to be in AFib today. He got very angry. We are going to try to give him metoprolol t o slow him down, to see if we can get him to go back to normal rhythm. I think he has been going mary k and forth between AFib and normal, so we will give IV Lopressor, oral Lopressor. If that does not work, we can switch to Betapace. AMBER/MODL Voice ID: [id number] Report ID: [id number]
[2018-10-07] MEDS: METOPROLOL TAR 25 MG TAB PO SCH (17:11)
--- NOTE | 2018-10-07 17:33 | PN ---
Subjective: The patient is doing well. He has no new complaints. Objective: Vital Signs: Blood pressure 135/70, pulse 122, temperature 97.4. Heart: Tachycardic. Regular rate. Chest: Today is clear to auscultation. Abdomen: Soft, benign. Neurological: Alert, oriented, nonfocal. Grossly intact. Extremities: No edema. No cyanosis. Peripheral pulses are felt. Laboratory Data: Cultures so far nonrevealing and microbiology. CBC; white cell count 11.9, hemoglo bin 12.9, hematocrit 40.4, platelets 216. BUN 59, creatinine 2.03, which is a drop from yesterday. Blood sugar fingersticks in the 200-300 noted. Chest x-ray showed no significant change in bibasilar pneumonia. Assessment/plan: 1.Bibasilar pneumonia. Patient responding to treatment, doing well. Continue current antibiotics. 2.Chronic obstructive pulmonary disease exacerbation, improved. 3.Acute renal failure, improving with gentle hydration and treatment of pneumonia. 4.Coronary artery disease with unstable angina, clinically stable. 5.The patient had run of ventricular tachycardia this morning. He is having pacemaker and Dr. Ginna arellano was informed, but hemodynamically the patient is stable. 6.Type 2 diabetes. I think increased blood sugar secondary to steroids. We will stop IV Solu-Medro l, put him on prednisone 10 mg daily. 7.Expect discharge tomorrow if the patient remains stable on oral antibiotics and oral steroid. Corey king for details. MFS/MODL Voice ID: [id number] Report ID: [id number]
[2018-10-07] MEDS: Levofloxacin 250mg IV 250 MG/50 ML BAG IV SCH (20:43)
[2018-10-07] MEDS: ATORVASTATIN 10 MG TAB PO SCH (20:43)
[2018-10-08] MEDS: IPRATROPIUM BROM 0.5MG/2.5ML NEB SCH ×4 (01:39→20:36)
[2018-10-08] MEDS: ALBUTEROL 2.5 MG/3 ML NEB SOL NEB SCH ×4 (01:39→20:36)
[2018-10-08] MEDS: METOPROLOL TAR 25 MG TAB PO SCH ×3 (05:16→17:23)
[2018-10-08 05:29] LABS: Potassium 5.6 mmol/L (3.5-5.1)
[2018-10-08] MEDS ORDERED: SOD POLYSTYREN SUL 15 GM/60 ML UCUP PO ONE (08:00)
[2018-10-08] MEDS: CEFTRIAXONE/SWI 1gm 1 GM/10 ML SYR IV SCH (08:15)
[2018-10-08] MEDS: INSULIN -REGULAR HUMAN 50 UNIT/0.5 ML ML SQ SCH ×4 (08:15→20:30)
[2018-10-08] MEDS: FAMOTIDINE 20 MG/2 ML VIAL IV SCH (08:16)
[2018-10-08] MEDS: CLOPIDOGREL 75 MG TABLET PO SCH (08:16)
[2018-10-08] MEDS: ASPIRIN 325 MG TAB PO SCH (08:16)
[2018-10-08] MEDS: GABAPENTIN 300 MG CAP PO SCH ×3 (08:16→20:31)
[2018-10-08] MEDS: ISOSORBIDE MONO SR 60 MG TAB PO SCH (08:16)
[2018-10-08] MEDS: DULOXETINE 30 MG CAP PO SCH (08:16)
[2018-10-08] MEDS: predniSONE 10 MG TAB PO SCH (08:16)
[2018-10-08] MEDS: LOSARTAN POTASSIUM 50 MG TABLET PO SCH (08:17)
[2018-10-08] MEDS: SPIRONOLACTONE 25 MG TABLET PO SCH (08:18)
--- NOTE | 2018-10-08 13:05 | PN ---
Mr. Moore's heart rate is better. He feels fine. He is in atrial fibrillation. He is definitely not a candidate for long-term anticoagulation. We should try and get his heart rate a little lower befo re he goes home. This morning, he was hyperkalemic. He probably will not be able to withstand jose nolactone any longer. I believe that needs to be discontinued. AMBER/KAYLYNN Voice ID: [id number] Report ID: [id number]
[2018-10-08] MEDS: NA CHLORIDE 0.9% 1,000 ML IV SCH ×2 (14:00→20:30)
--- NOTE | 2018-10-08 14:09 | PN ---
Subjective: The patient has no new complaint, however, he is being going in and out of atrial fibril lation. Objective: Vital Signs: Blood pressure 119/76, pulse 108, temperature 97.2. Heart: Tachycardic. Chest: Clear to auscultation. Abdomen: Soft. Benign. Nontender. Bowel sounds are active. Extremities: No edema. Peripheral pulses are felt. Neurologic: Alert, oriented, nonfocal. Grossly intact. Laboratory Data: Blood sugar fingersticks noted and chemistry noted, his potassium today is 5.6. Assessment/plan: 1.Bibasilar pneumonia, resolving. 2.Coronary artery disease and now with atrial fibrillation. Dr. Morel has put the patient on metop rolol, and we will follow him up for either chemical or cardiac cardioversion and plan the process. 3.Chronic obstructive pulmonary disease exacerbation. The patient now is back at baseline from that standpoint of his chronic obstructive pulmonary disease. 4.Acute renal failure. His BUN is 65, creatinine 2.13, still expect that to improve with hydration. Look orders for details. MFS/MODL Voice ID: [id number] Report ID: [id number]
[2018-10-08] MEDS: Levofloxacin 250mg IV 250 MG/50 ML BAG IV SCH (20:30)
[2018-10-08] MEDS: ATORVASTATIN 10 MG TAB PO SCH (20:31)
[2018-10-08] MEDS: GUAIFENESIN/DM 5 ML UCUP PO PRN (21:25)
[2018-10-09] MEDS: IPRATROPIUM BROM 0.5MG/2.5ML NEB SCH ×4 (01:16→20:27)
[2018-10-09] MEDS: ALBUTEROL 2.5 MG/3 ML NEB SOL NEB SCH ×4 (01:16→20:27)
[2018-10-09] MEDS: GUAIFENESIN/DM 5 ML UCUP PO PRN (03:26)
[2018-10-09 05:12] LABS: Absolute Lymphocytes (CBC) 1.6 K/uL (0.7-4.9); Absolute Monocytes 2.1 K/uL (0.1-1.3); Absolute Neutrophil 10.3 K/uL (1.8-8.0); Basophils % 0.2 % (0-1.3); Eosinophils % 0.2 % (0-4.4); Hematocrit 40.7 % (39.6-49.0); Lymphocytes % 11.3 % (15.3-44.8); MPV 10.1 fL (7.6-11.3); RBC Red Blood Cell Count 4.53 M/uL (4.33-5.43)
[2018-10-09 05:33] LABS: Potassium 4.9 mmol/L (3.5-5.1)
[2018-10-09] MEDS: METOPROLOL TAR 25 MG TAB PO SCH (05:45)
[2018-10-09] MEDS: DULOXETINE 30 MG CAP PO SCH (08:46)
[2018-10-09] MEDS: ASPIRIN 325 MG TAB PO SCH (08:46)
[2018-10-09] MEDS: CEFTRIAXONE/SWI 1gm 1 GM/10 ML SYR IV SCH (08:46)
[2018-10-09] MEDS: GABAPENTIN 300 MG CAP PO SCH ×3 (08:46→21:31)
[2018-10-09] MEDS: ISOSORBIDE MONO SR 60 MG TAB PO SCH (08:46)
[2018-10-09] MEDS: LOSARTAN POTASSIUM 50 MG TABLET PO SCH (08:47)
[2018-10-09] MEDS: CLOPIDOGREL 75 MG TABLET PO SCH (08:47)
[2018-10-09] MEDS: FUROSEMIDE 20 MG TABLET PO SCH (08:47)
[2018-10-09] MEDS: predniSONE 10 MG TAB PO SCH (08:47)
[2018-10-09] MEDS: INSULIN -REGULAR HUMAN 50 UNIT/0.5 ML ML SQ SCH ×4 (09:49→21:30)
[2018-10-09] MEDS: FAMOTIDINE 20 MG/2 ML VIAL IV SCH (09:50)
--- NOTE | 2018-10-09 11:39 | PN ---
He remains in atrial fibrillation. We are going to try and slow him down, anticoagulate him, maybe d o a cardioversion. Today, he is in respiratory distress. He sounds like he is in pulmonary edema, a nd I gave him a single dose of Lasix and see tomorrow if we have managed to get him in normal rhythm with drugs. If not, we can consider a cardioversion. AMBER/KAYLYNN Voice ID: [id number] Report ID: [id number]
[2018-10-09] MEDS: ENOXAPARIN 100 MG/ML SYR SQ SCH (11:50)
[2018-10-09] MEDS ORDERED: FUROSEMIDE 40 MG/4 ML VIAL IV ONE (12:00)
[2018-10-09] MEDS: SOTALOL HCL 80 MG TAB PO SCH (17:14)
[2018-10-09] MEDS: Levofloxacin 250mg IV 250 MG/50 ML BAG IV SCH (21:31)
[2018-10-09] MEDS: ATORVASTATIN 10 MG TAB PO SCH (21:31)
[2018-10-10] MEDS: ALBUTEROL 2.5 MG/3 ML NEB SOL NEB SCH ×4 (01:59→20:30)
[2018-10-10] MEDS: IPRATROPIUM BROM 0.5MG/2.5ML NEB SCH ×4 (01:59→20:30)
[2018-10-10] MEDS: SOTALOL HCL 80 MG TAB PO SCH ×2 (06:03→17:41)
--- NOTE | 2018-10-10 08:50 | EKG ---
Test Date: 2018-10-09 Test Time: 12:56:07 Corporate Risk Analyst: HEMANT MEASUREMENT RESULTS: Intervals: Rate: 102 [place]: QRSD: 168 QT: 390 QTc: 508 [place]: P: [place]: QRS: 15 T: 196 INTERPRETIVE STATEMENTS: Demand pacemaker, interpretation is based on intrinsic rhythm Undetermined rhythm Nonspecific intraventricular block Abnormal ECG Compared to ECG 10/09/2018 12:54:21 No significant changes Electronically Signed On 10-10-18 08:49:01 DOUGH CUTTER by Willy Morel
--- NOTE | 2018-10-10 08:50 | EKG ---
Test Date: 2018-10-09 Test Time: 12:54:21 [employer] Principal: HEMANT MEASUREMENT RESULTS: Intervals: Rate: 111 MA: QRSD: 168 QT: 386 QTc: 524 [place]: P: MA: QRS: 22 T: 210 INTERPRETIVE STATEMENTS: Demand pacemaker, interpretation is based on intrinsic rhythm Atrial fibrillation with rapid ventricular response Left bundle branch block Abnormal ECG Compared to ECG 10/07/2018 09:43:09 Ventricular premature complex(es) no longer present Electronically Signed On 10-10-18 08:49:54 CASTING WHEEL OPERATOR by Willy Morel
[2018-10-10] MEDS: INSULIN -REGULAR HUMAN 50 UNIT/0.5 ML ML SQ SCH ×4 (08:59→20:53)
[2018-10-10] MEDS: ISOSORBIDE MONO SR 60 MG TAB PO SCH (09:00)
[2018-10-10] MEDS: LOSARTAN POTASSIUM 50 MG TABLET PO SCH (09:00)
[2018-10-10] MEDS: ASPIRIN 325 MG TAB PO SCH (09:00)
[2018-10-10] MEDS: FUROSEMIDE 20 MG TABLET PO SCH (09:00)
[2018-10-10] MEDS: GABAPENTIN 300 MG CAP PO SCH ×3 (09:00→20:52)
[2018-10-10] MEDS: predniSONE 10 MG TAB PO SCH (09:00)
[2018-10-10] MEDS: DULOXETINE 30 MG CAP PO SCH (09:00)
[2018-10-10] MEDS: ENOXAPARIN 100 MG/ML SYR SQ SCH (09:01)
[2018-10-10] MEDS: CLOPIDOGREL 75 MG TABLET PO SCH (09:01)
[2018-10-10] MEDS: FAMOTIDINE 20 MG/2 ML VIAL IV SCH (09:01)
[2018-10-10] MEDS: CEFTRIAXONE/SWI 1gm 1 GM/10 ML SYR IV SCH (09:01)
--- NOTE | 2018-10-10 11:03 | RAD REPORT ---
EXAM DESCRIPTION: RAD - Chest Single View - 10/10/2018 10:54 am CLINICAL HISTORY: Shortness of breath COMPARISON: October 07, October 05 TECHNIQUE: AP portable chest image was obtained 1045 hours . FINDINGS: Lungs are better aerated than on prior imaging lung volumes are improved. Interstitial opa cification pattern has improved. No new or progressive lung parenchymal process. Heart size is promin ent but stable peer vasculature within normal limits. No measurable pleural effusion and no pneumotho rax. No acute bony abnormality seen. No acute aortic findings suspected. IMPRESSION: Improved lung volumes and improved aeration of the lung jett. Interstitial edema or in filtrate pattern has significantly improved.
--- NOTE | 2018-10-10 14:11 | PN ---
Subjective: The patient has no new complaints. No increased shortness of breath. Objective: Vital Signs: Blood pressure 170/70, pulse 114, temperature 97.3, pulse oximetry on room air is 100%. Heart: Irregular rate and rhythm. Chest: Clear to auscultation. Abdomen: Soft, benign. Bowel sounds are active. Extremities: No edema. No cyanosis. Peripheral pulses are felt. Neurologic: Alert, oriented, nonfocal. Grossly intact. Laboratory Data: Chest x-ray showed improved aeration of lung jett and improved interstitial edema or infiltrate has improved. Assessment And Plan: 1.Chronic obstructive pulmonary disease exacerbation with bibasilar pneumonia, improved. We are goi ng to stop his IV antibiotics and put him on Augmentin. We will avoid Levaquin and Zithromax, dose m ay be aiding in his atrial fibrillation. 2.Atrial fibrillation. Plan per Cardiology, probably cardioversion today. 3.Type 2 diabetes. We will continue sliding scale and current care. The rest of his medical proble ms are stable. 4.Discharge the patient depending on Cardiology plan. MFS/MODL Voice ID: [id number] Report ID: [id number]
[2018-10-10] MEDS: ATORVASTATIN 10 MG TAB PO SCH (20:52)
[2018-10-10] MEDS: AMOX/CLAV 200 MG/5 ML ORAL SUSP (100 ML BTL) PO SCH (20:52)
[2018-10-11] MEDS: ALBUTEROL 2.5 MG/3 ML NEB SOL NEB SCH ×3 (02:00→13:20)
[2018-10-11] MEDS: IPRATROPIUM BROM 0.5MG/2.5ML NEB SCH ×3 (02:00→13:20)
[2018-10-11] MEDS: SOTALOL HCL 80 MG TAB PO SCH (05:18)
[2018-10-11 06:13] LABS: Absolute Lymphocytes (CBC) 2.4 K/uL (0.7-4.9); Absolute Monocytes 1.4 K/uL (0.1-1.3); Absolute Neutrophil 6.4 K/uL (1.8-8.0); Basophils % 0.3 % (0-1.3); Eosinophils % 4.1 % (0-4.4); Hematocrit 41.6 % (39.6-49.0); Lymphocytes % 22.7 % (15.3-44.8); MPV 10.7 fL (7.6-11.3); Monocytes % 13.3 % (3.3-12.3); RBC Red Blood Cell Count 4.65 M/uL (4.33-5.43)
[2018-10-11 06:20] LABS: Potassium 4.5 mmol/L (3.5-5.1)
[2018-10-11 08:31] LABS: Blood Morphology Comment NOT SEEN (NOT SEEN); Platelet Estimate ADEQ; Urine White Blood Cell Casts OK
[2018-10-11] MEDS: INSULIN -REGULAR HUMAN 50 UNIT/0.5 ML ML SQ SCH ×2 (09:30→12:12)
[2018-10-11] MEDS: ENOXAPARIN 100 MG/ML SYR SQ SCH (09:31)
[2018-10-11] MEDS: AMOX/CLAV 200 MG/5 ML ORAL SUSP (100 ML BTL) PO SCH (09:31)
[2018-10-11] MEDS: DULOXETINE 30 MG CAP PO SCH (09:32)
[2018-10-11] MEDS: ASPIRIN 325 MG TAB PO SCH (09:32)
[2018-10-11] MEDS: FUROSEMIDE 20 MG TABLET PO SCH (09:32)
[2018-10-11] MEDS: predniSONE 10 MG TAB PO SCH (09:32)
[2018-10-11] MEDS: LOSARTAN POTASSIUM 50 MG TABLET PO SCH (09:32)
[2018-10-11] MEDS: CLOPIDOGREL 75 MG TABLET PO SCH (09:32)
[2018-10-11] MEDS: FAMOTIDINE 20 MG/2 ML VIAL IV SCH (09:32)
[2018-10-11] MEDS: GABAPENTIN 300 MG CAP PO SCH ×2 (09:32→14:20)
[2018-10-11] MEDS: ISOSORBIDE MONO SR 60 MG TAB PO SCH (09:33)
[2018-10-11 12:41] VITALS: O2SAT 95
[2018-10-11 17:45] VITALS: BP 97/56; TEMP 97.3
--- NOTE | 2018-10-14 15:39 | PN ---
Subjective: The patient is doing well. No new complaint. Objective: Vital Signs: Blood pressure 100/56, pulse 117, temperature 98.1. Heart: Irregular rate and rhythm. Tachycardic. Chest: Clear to auscultation. Abdomen: Soft, benign. Bowel sounds are active. Extremities: No edema. No cyanosis. Peripheral pulses are felt. Neurologic: Alert, oriented. Grossly intact. Laboratory Data: White cell count 14,000, hemoglobin 13, hematocrit 40.7, platelets 194. BUN 64, cr eatinine 1.77, blood sugar fingersticks noted 173 and 204 and 206. Assessment And Plan: 1.The patient is still in atrial fibrillation, tachycardic and as per Dr. Morel, he needs to have i t slower a bit before discharge. The patient is on metoprolol 50 mg p.o. b.i.d.; however, his blood pressure is showing also that the patient barely tolerating that with a systolic blood pressure of 10 0, pending Cardiology recommendation from that standpoint. 2.Bibasilar pneumonia. Clinically, controlled and stable, on current antibiotics. 3.Chronic obstructive pulmonary disease exacerbation. The patient with treatment of pneumonia and c urrent treatment, is back to baseline from that standpoint. 4.Acute renal failure, improved to hydration. 5.Type 2 diabetes. We will continue current sliding scale, pending Cardiology recommendation. We w ill continue current treatment. MFS/MODL Voice ID: [id number] Report ID: [id number]
== END 2018-10-11 16:43 | disposition home or self-care (01) | DRG 194 ==
LOC: ER 15:49 → ERHOLD 17:14 → 4TH 20:47
PROVIDERS: ADMIT Internal Medicine; ATTEND Internal Medicine
DX: J18.9 Pneumonia, unspecified organism (principal); J44.0 Chronic obstructive pulmonary disease with (acute) lower respiratory infection; J44.1 Chronic obstructive pulmonary disease with (acute) exacerbation; I50.22 Chronic systolic (congestive) heart failure; N17.9 Acute kidney failure, unspecified; I25.110 Atherosclerotic heart disease of native coronary artery with unstable angina pectoris; F17.210 Nicotine dependence, cigarettes, uncomplicated; Z95.0 Presence of cardiac pacemaker; E78.5 Hyperlipidemia, unspecified; Z88.5 Allergy status to narcotic agent; E86.0 Dehydration; R19.7 Diarrhea, unspecified; Z95.5 Presence of coronary angioplasty implant and graft; I11.0 Hypertensive heart disease with heart failure; E11.9 Type 2 diabetes mellitus without complications; I48.91 Unspecified atrial fibrillation; E87.5 Hyperkalemia
CPT/HCPCS: 36415; 71045; 74176; 80048; 80076; 81003; 81015; 82962; 83605; 83690; 83735; 83880; 84100; 84145; 84484; 85025; 85610; 87040; 87045; 87046; 87070; 87086; 87088; 87205; 89055; 93005; 94640; 94760; 96361; 96365; 96367; 96375; 99285; J0696; J1650; J1940; J2270; J2405; J2920; J2930; J3010; J7030; J7512

== ENCOUNTER 2019-01-23 10:24 | Emergency (ER) | payer OTHER ==
--- OUTSIDE RECORDS SUMMARY | 2019-01-23 10:29 | XMS REPORT ---
:1945 Author Organization [facility] Address [address] [place] [address] [address]. [address] [place] [address] Care Team Providers Name Role Phone Unavailable Unavailable Unavailable Problems This patient has no known problems. Allergies, Adverse Reactions, Alerts This patient has no known allergies or adverse reactions. Medications This patient has no known medications.
--- OUTSIDE RECORDS SUMMARY | 2019-01-23 10:29 | XMS REPORT | Clinical Summary ---
:1945 Author Organization [facility] Address [address] [place] [address] Care Team Providers Name Role Phone Luis Eduardo Knott MD Primary Care Provider Allergies No Known Allergies Medications Medication Sig Dispensed Refills Start Date End Date Status amIODarone Take 1 tablet 60 tablet 0 10/22/2018 11/21/2018 (PACERONE) 400 MG (400 mg total) tablet by mouth every 12 (twelve) hours for 30 days. apixaban (ELIQUIS) 5 Take 1 tablet (5 60 tablet 2 10/22/2018 11/21/2018 mg tablet mg total) by mouth 2 (two) times a day for 30 days. DULoxetine Take 1 capsule 30 capsule 0 10/23/2018 11/22/2018 (CYMBALTA) 30 MG (30 mg total) by capsule mouth daily for 30 days. gabapentin Take 1 capsule 90 capsule 0 10/22/2018 11/21/2018 (NEURONTIN) 300 mg (300 mg total) capsule by mouth 3 (three) times a day for 30 days. isosorbide Take 1 tablet 30 tablet 0 10/23/2018 11/22/2018 mononitrate (IMDUR) (60 mg total) by 60 MG 24 hr tablet mouth daily for 30 days. pravastatin Take 1 tablet 30 tablet 0 10/22/2018 11/21/2018 (PRAVACHOL) 40 MG (40 mg total) by tablet mouth nightly for 30 days. Active Problems Problem Noted Date Essential hypertension 10/21/2018 Coronary artery disease involving little shell tribe coronary artery 10/21/2018 Mixed hyperlipidemia 10/21/2018 ICD (implantable cardioverter-defibrillator) discharge 10/20/2018 Encounters Date Type Specialty Care Team Description 10/22/2018 Patient Outreach Quality Jennifer Reddy RN 10/20/2018 - Hospital Encounter General Internal Nelson, ICD ( implantable cardioverter-defibrillator) discharge (Primary Dx); 10/22/2018 Medicine Harrison Fall Sr., Essential hypertension; Coronary artery disease involving little shell tribe coronary artery of little shell tribe heart without angina pectoris; Mixed hyperlipidemia 10/20/2018 Intake Access N/A after 01/22/2018 Immunizations Name Dates Previously Given Next Due FLUCELVAX QUAD PF (0.5mL syringe) 10/21/2018 Social History Tobacco Use Types Packs/Day Years Used Date Current Every Day Smoker Cigarettes 0.5 Started: [birth year]/16/1957 Smokeless Tobacco: Current User Chew Tobacco Cessation: Ready to Quit: No; Counseling Given: Yes Alcohol Use Drinks/Week oz/Week Comments No Alcohol Habits Answer Date Recorded How often do you have a drink containing alcohol? Never 10/20/2018 How many drinks containing alcohol do you have on a typical Not asked day when you are drinking? How often do you have six or more drinks on one occasion? Not asked Sex Assigned at Date Recorded Not on file Job Start Date Occupation Industry Not on file Not on file Not on file Travel History Travel Start Travel End No recent travel history available. Last Filed Vital Signs Vital Sign Reading Time Taken Blood Pressure 139/49 10/22/2018 8:23 AM SURVEYOR HYDROGRAPHIC Pulse 60 10/22/2018 9:00 AM SURVEYOR HYDROGRAPHIC Temperature 36.1 C (97 F) 10/22/2018 8:23 AM SURVEYOR HYDROGRAPHIC Respiratory Rate 18 10/22/2018 8:23 AM SURVEYOR HYDROGRAPHIC Oxygen Saturation 97% 10/22/2018 8:23 AM SURVEYOR HYDROGRAPHIC Inhaled Oxygen Concentration - - Weight 96.6 kg (213 lb) 10/22/2018 7:24 AM SURVEYOR HYDROGRAPHIC Height 188 cm (6' 2") 10/20/2018 8:21 PM SURVEYOR HYDROGRAPHIC Body Mass Index 27.35 10/20/2018 8:21 PM SURVEYOR HYDROGRAPHIC Plan of Treatment Health Maintenance Due Date Last Done Comments COLON CANCER SCREENING 11/25/1995 SHINGLES VACCINES (#1) 11/25/1995 65+ PNEUMOCOCCAL VACCINE (1 of 2 - PCV13) 2010 INFLUENZA VACCINE 03/16/2019 10/21/2018 Implants Implanted Type Area Senior Buyer Planner Device Shelf Model / Identifier Expiration Serial / Date Lot Defibrillators Devices Icd And Related Products-10/20/2010 Defibrillators Right : [place] Implanted: 10/20/2010 (Quantity not on file) Devices ICD and Chest SCIENTIFIC/INT Related Products Wall ERVENTIONAL CARDIOLOGY (SCIMED) Procedures Procedure Name Priority Date/Time Associated Comments Diagnosis POC GLUCOSE Routine 10/22/2018 8:26 Results for this AM SURVEYOR HYDROGRAPHIC procedure are in the results section. PARTIAL THROMBOPLASTIN Routine 10/22/2018 5:45 Results for this TIME (PTT) AM SUR[facility]YOR HYDROGRAPHIC procedure are in the results section. HC COMPLETE BLD COUNT Routine 10/22/2018 5:45 Results for this W/AUTO DIFF AM SURVEYOR HYDROGRAPHIC procedure are in the results section. ESTIMATED GFR Routine 10/22/2018 4:00 Results for this AM SURVEYOR HYDROGRAPHIC procedure are in the results section. MAGNESIUM LEVEL Routine 10/22/2018 4:00 Results for this AM SURVEYOR HYDROGRAPHIC procedure are in the results section. PHOSPHORUS LEVEL Routine 10/22/2018 4:00 Results for this AM SURVEYOR HYDROGRAPHIC procedure are in the results section. IONIZED CALCIUM Routine 10/22/2018 4:00 Results for this AM SURVEYOR HYDROGRAPHIC procedure are in the results section. COMPREHENSIVE METABOLIC Routine 10/22/2018 4:00 Results for this PANEL AM SURVEYOR HYDROGRAPHIC procedure are in the results section. POC GLUCOSE Routine 10/21/2018 9:13 Results for this PM SURVEYOR HYDROGRAPHIC procedure are in the results section. POC GLUCOSE Routine 10/21/2018 5:29 Results for this PM SURVEYOR HYDROGRAPHIC procedure are in the results section. CREATININE LEVEL, Routine 10/21/2018 4:25 Results for this URINE, RANDOM PM SURVEYOR HYDROGRAPHIC procedure are in the results section. PROTEIN, URINE, RANDOM Routine 10/21/2018 4:25 Results for this PM SURVEYOR HYDROGRAPHIC procedure are in the results section. SODIUM LEVEL, URINE, Routine 10/21/2018 4:25 Results for this RANDOM PM SURVEYOR HYDROGRAPHIC procedure are in the results section. PARTIAL THROMBOPLASTIN Routine 10/21/2018 4:05 Results for this TIME (PTT) PM SURVEYOR HYDROGRAPHIC procedure are in the results section. US ABDOMEN COMPLETE Routine 10/21/2018 1:56 Results for this PM SURVEYOR HYDROGRAPHIC procedure are in the results section. POC GLUCOSE Routine 10/21/2018 11:29 Results for this AM SURVEYOR HYDROGRAPHIC procedure are in the results section. PARTIAL THROMBOPLASTIN Timed 10/21/2018 9:03 Results for this TIME (PTT) AM SURVEYOR HYDROGRAPHIC procedure are in the results section. POC GLUCOSE Routine 10/21/2018 7:48 Results for this AM SURVEYOR HYDROGRAPHIC procedure are in the results section. ESTIMATED GFR Routine 10/21/2018 3:09 Results for this AM SURVEYOR HYDROGRAPHIC procedure are in the results section. TROPONIN Routine 10/21/2018 3:09 Results for this AM SURVEYOR HYDROGRAPHIC procedure are in the results section. MAGNESIUM LEVEL Routine 10/21/2018 3:09 Results for this AM SURVEYOR HYDROGRAPHIC procedure are in the results section. PHOSPHORUS LEVEL Routine 10/21/2018 3:09 Results for this AM SURVEYOR HYDROGRAPHIC procedure are in the results section. IONIZED CALCIUM Routine 10/21/2018 3:09 Results for this AM SURVEYOR HYDROGRAPHIC procedure are in the results section. COMPREHENSIVE METABOLIC Routine 10/21/2018 3:09 Results for this PANEL AM SURVEYOR HYDROGRAPHIC procedure are in the results section. PARTIAL THROMBOPLASTIN Timed 10/21/2018 2:55 Results for this TIME (PTT) AM SURVEYOR HYDROGRAPHIC procedure are in the results section. HC COMPLETE BLD COUNT Routine 10/21/2018 2:55 Results for this W/AUTO DIFF AM SURVEYOR HYDROGRAPHIC procedure are in the results section. RESPIRATORY PATHOGEN Routine 10/20/2018 11:50 Results for this PANEL PM SURVEYOR HYDROGRAPHIC procedure are in the results section. ECHOCARDIOGRAM 2D STAT 10/20/2018 11:10 Results for this COMPLETE W MMODE PM SURVEYOR HYDROGRAPHIC procedure are in SPECTRAL COLOR DOPPLER the results (59617) section. XR CHEST 1 VW PORTABLE STAT 10/20/2018 9:01 Results for this PM SURVEYOR HYDROGRAPHIC procedure are in the results section. POC GLUCOSE Routine 10/20/2018 8:11 Results for this PM SURVEYOR HYDROGRAPHIC procedure are in the results section. PHOSPHORUS LEVEL Routine 10/20/2018 8:10 Results for this PM SURVEYOR HYDROGRAPHIC procedure are in the results section. LIPID PANEL Routine 10/20/2018 8:10 Results for this PM SURVEYOR HYDROGRAPHIC procedure are in the results section. MAGNESIUM LEVEL Routine 10/20/2018 8:10 Results for this PM SURVEYOR HYDROGRAPHIC procedure are in the results section. LIPASE LEVEL Routine 10/20/2018 8:10 Results for this PM SURVEYOR HYDROGRAPHIC procedure are in the results section. AMYLASE LEVEL Routine 10/20/2018 8:10 Results for this PM SURVEYOR HYDROGRAPHIC procedure are in the results section. B NATRIURETIC PEPTIDE Routine 10/20/2018 8:10 Results for this PM SURVEYOR HYDROGRAPHIC procedure are in the results section. HEMOGLOBIN A1C Routine 10/20/2018 8:10 Results for this PM SUR[facility]YOR HYDROGRAPHIC procedure are in the results section. BILIRUBIN DIRECT Routine 10/20/2018 8:10 Results for this PM SURVEYOR HYDROGRAPHIC procedure are in the results section. ESTIMATED GFR Routine 10/20/2018 8:10 Results for this PM SURVEYOR HYDROGRAPHIC procedure are in the results section. PARTIAL THROMBOPLASTIN Routine 10/20/2018 8:10 Results for this TIME (PTT) PM SURVEYOR HYDROGRAPHIC procedure are in the results section. PROTHROMBIN TIME WITH Routine 10/20/2018 8:10 Results for this INR PM SURVEYOR HYDROGRAPHIC procedure are in the results section. HC COMPLETE BLD COUNT Routine 10/20/2018 8:10 Results for this W/AUTO DIFF PM SURVEYOR HYDROGRAPHIC procedure are in the results section. IONIZED CALCIUM Routine 10/20/2018 8:10 Results for this PM SURVEYOR HYDROGRAPHIC procedure are in the results section. T3 Routine 10/20/2018 8:10 Results for this PM SURVEYOR HYDROGRAPHIC procedure are in the results section. T4, FREE Routine 10/20/2018 8:10 Results for this PM SURVEYOR HYDROGRAPHIC procedure are in the results section. THYROID STIMULATING Routine 10/20/2018 8:10 Results for this HORMONE PM SURVEYOR HYDROGRAPHIC procedure are in the results section. TROPONIN Routine 10/20/2018 8:10 Results for this PM SURVEYOR HYDROGRAPHIC procedure are in the results section. COMPREHENSIVE METABOLIC Routine 10/20/2018 8:10 Results for this PANEL PM SURVEYOR HYDROGRAPHIC procedure are in the results section. LACTIC ACID LEVEL Routine 10/20/2018 8:10 Results for this PM SURVEYOR HYDROGRAPHIC procedure are in the results section. ECG 12-LEAD Routine 10/20/2018 7:54 Results for this PM SURVEYOR HYDROGRAPHIC procedure are in the results section. after 01/22/2018 Results POC glucose (10/22/2018 8:26 AM SURVEYOR HYDROGRAPHIC)Only the most recent of6 resultswithin the time period is included. POC glucose 101 (H) 65 - 99 mg/dL [place] [facility] Comment: [facility] Notified RN Meter ID: [id number] Claims Coordinator: Faviola Garcia Specimen Performing Organization Address City/[facility] [place] Phone Number [facility] DEPARTMENT OF PATHOLOGY AND [address] [place] [address] [facility]IC[facility] [address] [address] Partial thromboplastin time, activated (10/22/2018 5:45 AM SURVEYOR HYDROGRAPHIC)Only the most recent of5 resultswithin the time period is included. PTT 32.8 23.0 - 36.0 [facility] QUAKER Comment: [facility] HOSPITAL PTT therapeutic range for unfractionated heparin is 61.0-112.0 seconds which corresponds to Anti-Xa 0.3-0.7 U/ml. Specimen Blood Performing Organization Address [facility] Phone Number [facility] DEPARTMENT OF PATHOLOGY AND [address], [place] [address] [place] [phone] CBC with platelet and differential (10/22/2018 5:45 AM SURVEYOR HYDROGRAPHIC)Only the most recent of3 resultswithin the time period is included. [facility] WBC 8.85 4.50 - 11.00 [facility] k/uL [facility] RBC 4.21 (L) 4.40 - 6.00 [facility] m/uL [facility] HGB 12.1 (L) 14.0 - 18.0 [facility] g/dL [facility] HCT 39.3 (L) 41.0 - 51.0 % [facility] MCV 93.3 82.0 - 100.0 [facility] MCH 28.7 27.0 - 34.0 pg [facility] MCHC 30.8 (L) 31.0 - 37.0 [facility] gdL [facility] RDW - SD 46.6 37.0 - 55.0 fL [facility] MPV 12.4 8.8 - 13.2 fL [facility] Platelet count 141 (L) 150 - 400 k/uL [facility] Nucleated RBC 0.00 /100 WBC [facility] Neutrophils 53.9 39.0 - 69.0 % [facility] Lymphocytes 28.6 25.0 - 45.0 % [facility] Monocytes 11.5 (H) 0.0 - 10.0 % [facility] Eosinophils 4.1 0.0 - 5.0 % [facility] Basophils 1.4 (H) 0.0 - 1.0 % [facility] Immature granulocytes 0.5Comment: 0.0 - 1.0 % [facility] "Immature HOSPITAL granulocytes" (promyelocytes , myelocytes, metamyelocytes ) Specimen Blood Performing Organization Address City/[facility]/Zipcode Phone Number [facility] DEPARTMENT OF PATHOLOGY AND [address] [place] [id number] [place] [address] Estimated GFR (10/22/2018 4:00 AM SURVEYOR HYDROGRAPHIC)Only the most recent of3 resultswithin the time period is included. [facility] Estimated GFR 33 (A) mL/min/1.73 [facility]: HOSPITAL CatergoryUnitsInterpretation G1 >=90 Normal or high G2 60-89Mildly decreased [id number] to moderately decreased [id number] to severely decreased G4 15-29Severely decreased G5 <15Kidney failure The eGFR was calculated using the Chronic Kidney Disease Epidemiology Collaboration (CKD-EPI) equation. Interpretation is based on recommendations of the National Kidney Foundation-Kidney Disease Outcomes Quality Initiative (NKF-KDOQI) published in 2014. Specimen Plasma specimen Performing Organization Address City/[facility] Phone Number [facility] DEPARTMENT OF PATHOLOGY AND [address] [place] [address] Phosphorus level (10/22/2018 4:00 AM SURVEYOR HYDROGRAPHIC)Only the most recent of3 resultswithin the time period is included. Phosphorus 2.7 2.4 - 4.5 mg/dL [facility] Specimen Plasma specimen Performing Organization Address [facility] Phone Number [facility] DEPARTMENT OF PATHOLOGY AND [address] [place] [phone] Magnesium level (10/22/2018 4:00 AM SURVEYOR HYDROGRAPHIC)Only the most recent of3 resultswithin the time period is included. Magnesium 2.2 1.6 - 2.4 mg/dL [facility] Specimen Plasma specimen Performing Organization Address [facility] Phone Number [facility] DEPARTMENT OF PATHOLOGY AND [address] [place] [phone] Ionized calcium (10/22/2018 4:00 AM SURVEYOR HYDROGRAPHIC)Only the most recent of3 resultswithin the time period is included. pH 7.46 [facility] Ionized calcium 1.13 1.11 - 1.32 mmol/L [facility] Specimen Plasma specimen Performing Organization Address [facility] Phone Number [facility] DEPARTMENT OF PATHOLOGY AND [address] [place], [place] [phone] Comprehensive metabolic panel (10/22/2018 4:00 AM SURVEYOR HYDROGRAPHIC)Only the most recent of3 resultswithin the time period is included. Sodium 140 135 - 148 [facility] mEq/L [facility] Potassium 4.5 3.5 - 5.0 [facility] mEq/L [facility] Chloride 104 98 - 112 mEq/L [facility] CO2 27 24 - 31 mEq/L [facility] Anion gap 9@ANIO 7 - 15 mEq/L [facility] BUN 34 (H) 8 - 23 mg/dL [facility] Creatinine 1.94 (H) 0.70 - 1.20 [facility] mg/dL [facility] Glucose 118 (H) 65 - 99 mg/dL [facility] Calcium 9.0 8.8 - 10.2 [facility] mg/dL [facility] Protein 6.0 (L) 6.3 - 8.3 g/dL [facility] Comment: HOSPITAL 4.6-7.0 g/dL 1 week 4.4-7.6 g/dL 7 months-1year5.1-7.3 g/dL 1-2 years5.6-7.5 g/dL >3 years6.0-8.0 g/dL 18-150 6.3-8.3 g/dL Albumin 2.7 (L) 3.5 - 5.0 g/dL [facility] A/G ratio 0.8 0.7 - 3.8 [facility] Alkaline phosphatase 112 40 - 129 U/L [facility] AST 32 10 - 50 U/L [facility] ALT 36 5 - 50 U/L [facility] Total bilirubin 0.3 0.0 - 1.2 [facility] mg/dL HOSPITAL Specimen Plasma specimen Performing Organization Address City/[facility] Phone Number [facility] DEPARTMENT OF PATHOLOGY AND [address] [place] [phone] [address] Sodium level, urine, random (10/21/2018 4:25 PM SURVEYOR HYDROGRAPHIC) Sodium, urine, random 34 mEq/L [facility] Specimen Urine Performing Organization Address City/[facility] Phone Number [facility] DEPARTMENT OF PATHOLOGY AND [address] [place] [phone] [address] Protein, urine, random (10/21/2018 4:25 PM SURVEYOR HYDROGRAPHIC) Protein, urine random 26 mg/dL [facility] Specimen Urine Performing Organization Address City/[facility]/Zipcode Phone Number [facility] DEPARTMENT OF PATHOLOGY AND [address] [place] [address] [facility] [address] [place] [address] Creatinine level, urine, random (10/21/2018 4:25 PM SURVEYOR HYDROGRAPHIC) Creatinine, urine, 246 mg/dL [facility] Specimen Urine Performing Organization Address City/[facility]/Zipcode Phone Number [facility] DEPARTMENT OF PATHOLOGY AND [address] [place] [phone] [place] [phone] US Abdomen Complete (10/21/2018 1:56 PM SURVEYOR HYDROGRAPHIC) Specimen Narrative Performed At EXAM: US ABDOMEN COMPLETE RADIANT CLINICAL DATA:Abd painunspecified COMPARISON: NONE. IMPRESSION: LIVER:The liver is heterogeneous in echotexture which can be seen with liver disease. MPV:Doppler evaluation of the portal vein demonstrates normal hepatopedal flow..The portal vein measures 10 mm in diameter. GALLBLADDER:The gallbladder has been surgically removed. CBD: 4 mm, within normal limits. PANCREAS:The visualized portions of the pancreas are within normal limits. SPLEEN:The spleen is homogeneous and not enlarged measuring 9.3 cm. RIGHT KIDNEY:The right kidney is normal in size and echogenicity. There is no evidence of mass, calculi, or hydronephrosis.The right kidney measures 9.0 cm. LEFT KIDNEY:The left kidney is normal in size and echogenicity. There is no evidence of mass, calculi, or hydronephrosis. The left kidney measures 10.0 cm. AORTA:The visualized upper abdominal aorta demonstrates no evidence of ectasia or aneurysm. IVC:The visualized portions of the inferior vena cava are unremarkable. ASCITES: No abnormal abdominal fluid collections are visualized. There is no evidence of ascites. PLEURAL EFFUSION:There are no pleural effusions. [facility]-[id number] Procedure Note Interface, Radiology Results Incoming - 10/21/2018 3:18 PM SURVEYOR HYDROGRAPHIC EXAM: US ABDOMEN COMPLETE CLINICAL DATA: Abd pain unspecified COMPARISON: NONE. IMPRESSION: LIVER: The liver is heterogeneous in echotexture which can be seen with liver disease. MPV: Doppler evaluation of the portal vein demonstrates normal hepatopedal flow.. The portal vein measures 10 mm in diameter. GALLBLADDER: The gallbladder has been surgically removed. CBD: 4 mm, within normal limits. PANCREAS: The visualized portions of the pancreas are within normal limits. SPLEEN: The spleen is homogeneous and not enlarged measuring 9.3 cm. RIGHT KIDNEY: The right kidney is normal in size and echogenicity. There is no evidence of mass, calculi, or hydronephrosis. The right kidney measures 9.0 cm. LEFT KIDNEY: The left kidney is normal in size and echogenicity. There is no evidence of mass, calculi, or hydronephrosis. The left kidney measures 10.0 cm. AORTA: The visualized upper abdominal aorta demonstrates no evidence of ectasia or aneurysm. IVC: The visualized portions of the inferior vena cava are unremarkable. ASCITES: No abnormal abdominal fluid collections are visualized. There is no evidence of ascites. PLEURAL EFFUSION: There are no pleural effusions. [facility]-[id number] Performing Organization Address City/[facility] Phone Number [address] [address] Troponin (10/21/2018 3:09 AM SURVEYOR HYDROGRAPHIC)Only the most recent of2 resultswithin the time period is included. [facility] Troponin <0.30 0.00 - 0.30 [facility] Comment: ng/mL [facility] 0.30 - 1.49 ng/mlMay indicate increased risk of acute coronary syndrome. >=1.5 ng/mlConsistent with acute myocardial infarction. The diagnostic value of a single normal or non-diagnostic result is questionable.Serial samples at 2-6 hour intervals are required to rule out acute myocardial injury. Specimen Plasma specimen Performing Organization Address City/[facility]/Zipcode Phone Number [facility] DEPARTMENT OF PATHOLOGY AND [address] [place] [address] GENOMIC MEDICINE [address] [address] Respiratory pathogen panel (10/20/2018 11:50 PM SURVEYOR HYDROGRAPHIC) [facility] Respiratory Negative for all pathogens tested: [place] pathogen panel Negative for Adenovirus QUAKER Negative for Coronavirus HKU1 [facility] Negative for Coronavirus NL63 Negative for Coronavirus 229E Negative for Coronavirus OC43 Negative for Human Metapneumovirus Negative for Rhinovirus/Enterovirus Negative for Influenza A Negative for Influenza A/H1 Negative for Influenza A/H3 Negative for Influenza A/H1-2009 Negative for Influenza B Negative for Parainfluenza Virus 1 Negative for Parainfluenza Virus 2 Negative for Parainfluenza Virus 3 Negative for Parainfluenza Virus 4 Negative for Respiratory Syncytial Virus Negative for Bordetella pertussis Negative for Chlamydophila pneumoniae Negative for Mycoplasma pneumoniae This real-time PCR assay detects the presence of nucleic acids (RNA or DNA) for the respiratory pathogens listed. A result of "Not-detected" does not exclude the possibility of the presence of one or more pathogens at concentrations less than the detectable limits of the assay. Comment: Specimen Information Specimen Source: Nares Specimen Site: Right Specimen Nares - Right Performing Organization Address City/State/Zipcode Phone Number [facility] DEPARTMENT OF PATHOLOGY AND [address] [place] [address] [place] [address] Echocardiogram complete w contrast and 3D if needed (10/20/2018 11:10 PM SURVEYOR HYDROGRAPHIC) Specimen Narrative Performed At [facility] Echocardiography Report [address] [place] [address] Pat.Name:GEOVANNY LOPEZ Pat.ID:[id number] St.Date: 10/20/2018 Refer.MD:HARRISON ALLISON MD Exam Time: 9:27:00 PMStudy Type:Routine Echo Height:72inWeight: 209lb BSA: 2.17 m2 DOBAge:1945,72Y Sex: MALEBP:117/55 HR:61 bpmSonogrphr: Russell Ceballos [facility] Pat. Stat.:Inpatient Room:[address] Study Status:Final Echo Event ID:[id number] Order ID:[id number] Reason for Study:Hear failure known,follow up s/p ICD placement, change in arrhythmia, status. appropriate ICD discharge Procedures:2D Echo, Colorflow Doppler, Intravenous Optison Contrast Race:C SUMMARY: LV size is severely enlarged. LV EF is moderately to severely depressed. Regional wall motion abnormalities present. Estimated EF is 30-34%. RV systolic function is normal. Diastolic dysfunction Grade I (Mild): Impaired relaxation with normal LV filling pressures. FINDINGS: LV: LV size is severely enlarged. There is severe eccentric LV hypertrophy.LV EF is moderately to severely depressed. Regionalwall motion abnormalities present. Estimated EF is 30-34%.Septal motion is paradoxical. RV: RV size is normal. A pacemaker wire is seen in the RV. RV systolicfunction is normal. LA: LA volume is moderately enlarged. RA: RA volume is normal. A pacemaker wire is seen. AO: Aortic root diameter is normal. CRISTOPHER: No pericardial effusion. IAS:Interatrial septum is thickened consistent with lipomatous hypertrophy. AV: Mild thickening of AV leaflets. MV: Mild mitral annular calcification. Restricted/tethered posteriorleaflet. Thickened and/or calcified chordae. A traceof mitral regurgitation. PV: Pulmonic valve not well seen. TV: No structural TV abnormalities noted. Jaffe: Diastolic dysfunction Grade I (Mild): Impaired relaxation withnormal LV filling pressures. Other:Insufficient TR jet to estimate PA systolic pressure. MEASUREMENTS: 2D Parasternal [place] LVIDd6.8 cmIndex3.1 cm/m Ao An2.7 cm LVIDs5.2 cmAo Rtd 3.8 cm Index1.7 cm/m LV%fs 23.5 % LV Zfqk216.5 g(122-174) IVSd 1 cmLVM Pjouc431.2 g/m2 LVPWd1.2 cmRWT0.4 LA Ds4 cmLVOT 2.1 cm LV EF Biplane HACDC184.4 ml (65-193) Index85.4 ml/m LV SV 59.7 ml MGCQO595.7 mfIakez42.9 ml/m LV EF 32.2 %(63-77) LA Sng Plane LA Area 26.8 cm2(8.8-23.4) LA Vol95.8 ml Index44.2 ml/m LA LngAx 6.3 cm RA Sng Plane RA Area 17 cm2(8.3-19.5) RA Vol47.6 ml Index21.9 ml/m RA LngAx 5.3 cm DOPPLER LVOT Stroke Vol LVOT 2.1 cmLVOT CO2.8 l/min LVOT TVI11.9 cmLVOT CI1.3 l/m/m2 LVOT Tm277 nxrjRS48 bpm LVOT SV 41.1 ml WALL MOTION: RESTING WALL MOTION: Basal Inferoseptal, Basal Inferior, Basal Inferolateral, Mid Inferoseptal, Mid Inferior, Mid Inferolateral, Apical Septal, Apical jordan are akinetic.Apical Inferior wall is hypokinetic.Basal Anteroseptal, Mid Anteroseptal jordan are mildly hypokinetic. Normal in all other jordan. Wall Index=2.1 Signed 10/21/2018 10:12 AM Marti Garnica MD Procedure Note Interface, Radiology Results In - 10/21/2018 10:13 AM [facility] Echocardiography Report [id number] [place] [address] Pat.Name: GEOVANNY LOPEZ Pat.ID: [id number] .Date: 10/20/2018 Ilia.MD: HARRISON ALLISON MD Exam Time: 9:27:00 PM Study Type:Routine Echo Height: 72in Weight: 209lb BSA: 2.17 m2 Age: 4 1945,72Y Sex: MALE BP: 117/55 HR: 61 bpm Sonogrphr: Russell Ceballos [facility] Pat. Stat.:Inpatient Room: 1028 A Study Status:Final Echo Event ID:[id number] Order ID: [id number] Reason for Study:Hear failure known,follow up s/p ICD placement, change in arrhythmia, status. appropriate ICD discharge Procedures:2D Echo, Colorflow Doppler, Intravenous Optison Contrast Race: C SUMMARY: LV size is severely enlarged. LV EF is moderately to severely depressed. Regional wall motion abnormalities present. Estimated EF is 30-34%. RV systolic function is normal. Diastolic dysfunction Grade I (Mild): Impaired relaxation with normal LV filling pressures. FINDINGS: LV: LV size is severely enlarged. There is severe eccentric LV hypertrophy. LV EF is moderately to severely depressed. Regional wall motion abnormalities present. Estimated EF is 30-34%. Septal motion is paradoxical. RV: RV size is normal. A pacemaker wire is seen in the RV. RV systolic function is normal. LA: LA volume is moderately enlarged. RA: RA volume is normal. A pacemaker wire is seen. AO: Aortic root diameter is normal. CRISTOPHER: No pericardial effusion. IAS: Interatrial septum is thickened consistent with lipomatous hypertrophy. AV: Mild thickening of AV leaflets. MV: Mild mitral annular calcification. Restricted/tethered posterior leaflet. Thickened and/or calcified chordae. A trace of mitral regurgitation. PV: Pulmonic valve not well seen. TV: No structural TV abnormalities noted. Jaffe: Diastolic dysfunction Grade I (Mild): Impaired relaxation with normal LV filling pressures. Other: Insufficient TR jet to estimate PA systolic pressure. MEASUREMENTS: 2D Parasternal [place] LVIDd 6.8 cm Index 3.1 cm/m Ao An 2.7 cm LVIDs 5.2 cm Ao Rtd 3.8 cm Index 1.7 cm/m LV%fs 23.5 % LV Mass 345.5 g (122-174) IVSd 1 cm LVM Index 159.2 g/m2 LVPWd 1.2 cm RWT 0.4 LA Ds 4 cm LVOT 2.1 cm LV EF Biplane LVEDV 185.4 ml (65-193) Index 85.4 ml/m LV SV 59.7 ml LVESV 125.7 ml Index 57.9 ml/m LV EF 32.2 % (63-77) LA Sng Plane LA Area 26.8 cm2 (8.8-23.4) LA Vol 95.8 ml Index 44.2 ml/m LA LngAx 6.3 cm RA Sng Plane RA Area 17 cm2 (8.3-19.5) RA Vol 47.6 ml Index 21.9 ml/m RA LngAx 5.3 cm DOPPLER LVOT Stroke Vol LVOT 2.1 cm LVOT CO 2.8 l/min LVOT TVI 11.9 cm LVOT CI 1.3 l/m/m2 LVOT Tm 277 msec HR 68 bpm LVOT SV 41.1 ml WALL MOTION: RESTING WALL MOTION: Basal Inferoseptal, Basal Inferior, Basal Inferolateral, Mid Inferoseptal, Mid Inferior, Mid Inferolateral, Apical Septal, Apical jordan are akinetic. Apical Inferior wall is hypokinetic. Basal Anteroseptal, Mid Anteroseptal jordan are mildly hypokinetic. Normal in all other jordan. Wall Index=2.1 Signed 10/21/2018 10:12 AM Marti Garnica MD Performing Organization Address City/State/[facility] Phone Number [facility] [address] [place] [address] XR Chest 1 Vw Portable (10/20/2018 9:01 PM SURVEYOR HYDROGRAPHIC) Specimen Narrative Performed At Examination:XR CHEST 1 VW PORTABLE HM [facility] Clinical History:ICU ptstable with no clinical status changes, new admit Comparison: 01/28/2011 Technique: Single frontal view of the chest is obtained. Findings: The lungs are free of infiltrate. The heart size is normal. No pleural effusion is seen. Right transvenous pacer device is noted. No pneumothorax is seen. Impression: No active cardiopulmonary disease identified. [facility]-[id number] Procedure Note Hm Interface, Radiology Results Incoming - 10/20/2018 9:22 PM SURVEYOR HYDROGRAPHIC Examination: XR CHEST 1 VW PORTABLE Clinical History: ICU pt stable with no clinical status changes, new admit Comparison: 01/28/2011 Technique: Single frontal view of the chest is obtained. Findings: The lungs are free of infiltrate. The heart size is normal. No pleural effusion is seen. Right transvenous pacer device is noted. No pneumothorax is seen. Impression: No active cardiopulmonary disease identified. [facility]-[id number] Performing Organization Address [facility] Phone Number [facility] [address] [place] [address] Prothrombin time with INR (10/20/2018 8:10 PM SURVEYOR HYDROGRAPHIC) Prothrombin time 14.2 11.5 - 14.5 [facility] INR 1.1 [place] Comment: [facility] International Normalized Ratio (INR) is a therapeutic HOSPITAL monitoring tool for patients who are stable on oral anticoagulant therapy. An INR of 2.0-3.0 is suggested for deep vein thrombosis/pulmonary embolism. Specimen Blood Performing Organization Address City/[facility]/Zipcode Phone Number [facility] DEPARTMENT OF PATHOLOGY AND [address] [place] [phone] [facility] [address] [address] T3 (10/20/2018 8:10 PM SURVEYOR HYDROGRAPHIC) T3 98 80 - 200 ng/dL [facility] Specimen Blood Performing Organization Address City/[facility]/Zipcode Phone Number [facility] DEPARTMENT OF PATHOLOGY AND [address] [place] [phone] [facility] MEDICINE [address] [address] Thyroid stimulating hormone (10/20/2018 8:10 PM SURVEYOR HYDROGRAPHIC) TSH 1.48 0.27 - 4.20 uIU/mL [facility] Specimen Blood Performing Organization Address City/[facility] Phone Number [facility] DEPARTMENT OF PATHOLOGY AND [address] [place] [address] T4, free (10/20/2018 8:10 PM SURVEYOR HYDROGRAPHIC) T4, free 1.3 0.9 - 1.7 ng/dL [facility] Specimen Blood Performing Organization Address City/[facility] Phone Number [facility] DEPARTMENT OF PATHOLOGY AND [address] [place] [phone] B natriuretic peptide (10/20/2018 8:10 PM SURVEYOR HYDROGRAPHIC) BNP 665 (H) 0 - 100 pg/mL [facility] Specimen Performing Organization Address City/[facility] Phone Number [facility] DEPARTMENT OF PATHOLOGY AND [address] [place] [phone] Lipase level (10/20/2018 8:10 PM SURVEYOR HYDROGRAPHIC) Lipase 35 13 - 60 U/L [facility] Specimen Blood Performing Organization Address City/[facility] Phone Number [facility] DEPARTMENT OF PATHOLOGY AND [address] [place] [address] Lactic acid level (10/20/2018 8:10 PM SURVEYOR HYDROGRAPHIC) Lactic acid 2.0 0.5 - 2.2 mmol/L [facility] Specimen Blood Performing Organization Address City/[facility]/Zipcode Phone Number [facility] DEPARTMENT OF PATHOLOGY AND [address] [place] [phone] Hemoglobin A1c (10/20/2018 8:10 PM SURVEYOR HYDROGRAPHIC) Hemoglobin A1C 8.1 (H) 4.0 - 5.6 % [facility] Comment: HOSPITAL HbA1c cutoffs for diagnosing diabetes: 4.0% - 5.6%=normal 5.7% - 6.4%=increased risk for diabetes (prediabetes) >=6.5%=diabetes Goals for glycemic control (ADA 2016) < 7.0%Target for non adults with diabetes. More or less stringent targets may be appropriate for individual patients. <7.5% Target for Children and adolescents with type 1 diabetes. Specimen Performing Organization Address City/State/Zipcode Phone Number [facility] DEPARTMENT OF PATHOLOGY AND [address] [place] [phone] Bilirubin direct (10/20/2018 8:10 PM SURVEYOR HYDROGRAPHIC) Bilirubin direct <0.2 0.0 - 0.3 mg/dL [facility] Specimen Blood Performing Organization Address City/[facility] Phone Number [facility] DEPARTMENT OF PATHOLOGY AND [address] [place] [address] Amylase level (10/20/2018 8:10 PM SURVEYOR HYDROGRAPHIC) Amylase 31 28 - 100 U/L [facility] Specimen Blood Performing Organization Address City/[facility] Phone Number [facility] DEPARTMENT OF PATHOLOGY AND [address] [place], [place] [phone] [address] [address] Lipid panel (10/20/2018 8:10 PM SURVEYOR HYDROGRAPHIC) Cholesterol 132 <200 mg/dL [facility] Triglycerides 202 (H) <150 mg/dL [facility] HDL cholesterol 32 (L) >40 mg/dL [facility] LDL cholesterol 72Comment: Result <100 mg/dL [place] obtained by direct QUAKER LDL measurement [facility] Lipid panel [facility] interpretation Comment: QUAKER Total Cholesterol (mg/dL) [facility] <200 Desirable 357-249Utxkifjecy-wrwn >=240High Triglycerides (mg/dL) <150 Normal 579-553Fryntejbuq-gecj 200-499High >=500Very high HDL Cholesterol (mg/dL) <40Low (male) <40Low (female) LDL Cholesterol (mg/dL) <100 Optimal 100-129Near or above optimal 363-059Vbrzwylgts-eioj 160-189High >=190Very high Risk Catergories that modify LDL goals. Risk CatergoriesLDL goal (mg/dL) CHD and CHD risk equivalent<100 (10-year risk >20%) Multiple (2+) risk factors <130 (10-year risk=<20%) 0-1 risk factors <160 (<10-year risk) Defining levels of lipids in metabolic syndrome Triglycerides>=150 mg/dL HDL Cholesterol Men<40 mg/dL Women<40 mg/dL Non-HDL cholesterol is a second target for therapy in persons with high triglycerides (>=200 mg/dL) Specimen Blood Performing Organization Address City/State/[facility] Phone Number [facility] DEPARTMENT OF PATHOLOGY AND [address] [place] [address] GENOMIC MEDICINE [address] [address] ECG 12 lead (10/20/2018 7:54 PM SURVEYOR HYDROGRAPHIC) Ventricular rate 102 [facility]USE Atrial rate 102 [facility] QRSD interval 180 [facility] MUSE QT interval 436 [facility] QTC interval 568 [facility] MUSE QRS axis 1 14 [facility] T wave axis 175 [facility] MUSE EKG impression Ventricular-paced [facility] MUSE rhythm-Abnormal ECG- Specimen Narrative Performed At Performing Organization Address [facility] Phone Number [facility] [address] [place] [address] after 01/22/2018 Advance Directives Patient has advance care planning documents on file. For more information, please contact:[address] [address]
--- OUTSIDE RECORDS SUMMARY | 2019-01-23 10:29 | XMS REPORT | Summary of Care ---
:1945 Author Organization [facility] Address [address] [place] [address]- Encounter HQ Hanhr_yuniel(FIN) [id number] Date(s): 12/13/18 - 12/13/18 [facility] [address] [place], [place] [address]- [phone] Attending Physician: Huan Riojas MD Referring Physician: Huan Riojas MD Vital Signs No data available for this section Problem List Condition Effective Dates Status Health Status Informant Cardiac defibrillator in Active situ(Confirmed) Cervical spondylosis(Confirmed) Active Diabetes mellitus type II(Confirmed) Active HTN - Hypertension(Confirmed) Active Hyperlipidemia(Confirmed) Active Neuropathy(Confirmed) Active Simple obesity(Confirmed) Active Syncope(Confirmed) Active Allergies, Adverse Reactions, Alerts No Known Medication Allergies Medications No data available for this section Results No data available for this section Immunizations No data available for this section Procedures No data available for this section Social History Social History Type Response Employment/School Status: Retired. Smoking Status Current every day smoker; Type: Cigarettes; Exposure to Tobacco Smoke Unable to obtain; Cigarette Smoking Last 365 Days Yes; Reg Smoking Cessation Counseling No entered on: 09/27/18 Assessment and Plan No data available for this section
--- OUTSIDE RECORDS SUMMARY | 2019-01-23 10:29 | XMS REPORT | Continuity of Care Document ---
:1945 Author Organization Interface Problems Problem Status Onset Classification Date Comments Source Date Reported TIA L SIDED Active 03/17/20 [facility] WEAKNESS [facility] TIA L SIDED Active 03/17/20 [facility] WEAKNESS/ABNORMAL 14 [facility] Cardiac Active Problem 12/15/2018 [facility] defibrillator in Neuro situ Cervical Active Problem 12/15/2018 [facility] spondylosis Neuro Diabetes mellitus Active Problem 12/15/2018 [facility] type II Neuro HTN - Hypertension Active Problem 12/15/2018 [facility] Hyperlipidemia Active Problem 12/15/2018 [facility] Neuropathy Active Problem 12/15/2018 [facility] Simple obesity Active Problem 12/15/2018 [facility] Syncope Active Problem 12/15/2018 [facility] TRANS CEREB Active [facility] [place] Medications Medication Details Route Status Patient Ordering Order Source Instructions Provider Date Allergies, Adverse Reactions, Alerts Substance Category Reaction Severity Reaction Status Date Comments Source type Reported No Known Assertion Drug [facility] Medication allergy Neuro Allergies Immunizations Immunization Date Given Site Status Last Updated Comments Source Results Order Results Value Reference Date Interpretation Comments Source Name Range Brain/Nec Brain/Nec EXAM: CT BRAIN WITHOUT CONTRAST 03/17 - [facility] CTA k CTA /2013 - Medical EXAM: [...] images are provided. COMPARISON: Head [facility] presence [facility] March 16, 2014 11: 58 [...] EXAM: CT BRAIN WITHOUT CONTRAST 03/17 - [facility] Stroke wo Stroke wo /2013 - Medical contrast contrast EXAM: CTA OF [...] images are provided. COMPARISON: Head [facility] presence [facility] March 16, 2014 11: 58 [...] EXAM: XR CHEST ONE VIEW: 03/17 - [address] - [facility] This report was dictated by a Network Operations Manager/Fellow. I have personally reviewed the images [...] Number For Provider Date Date Visit Outpatient [id number] SHAR 08/30 [facility] Outpatient [id number] SHAR 09/27 [facility] Outpatient [id number] SHAR 10/11 [facility] [place] Outpatient [id number] SHAR 10/20 Active [facility] Outpatient [id number] SHAR 12/13 [facility] Ambulatory [id number] Shar 12/13 12/13 [facility] Pre[facility]Reg [facility] [place] Procedures Procedure Code Date Perfomer Comments Source
--- NOTE | 2019-01-23 11:52 | RAD REPORT ---
EXAM DESCRIPTION: RAD - Pelvis - 01/23/2019 11:36 am CLINICAL HISTORY: Pelvic pain status post injury FINDINGS: No fracture or dislocation is seen. Osteoporosis If the patient continues to have symptoms to suggest an occult fracture then CT would be recommended
--- NOTE | 2019-01-23 11:53 | RAD REPORT ---
EXAM DESCRIPTION: RAD - Femur Left - 01/23/2019 11:36 am CLINICAL HISTORY: Left leg pain FINDINGS: No fracture or dislocation is seen. Osteoporosis If the patient continues to have symptoms to suggest an occult fracture then CT would be recommended .
[2019-01-23 12:03] LABS: Absolute Lymphocytes (CBC) 1.6 K/uL (0.7-4.9); Absolute Monocytes 0.9 K/uL (0.1-1.3); Absolute Neutrophil 6.9 K/uL (1.8-8.0); Eosinophils % 5.8 % (0-4.4); Hematocrit 42.3 % (39.6-49.0); Lymphocytes % 16.2 % (15.3-44.8); MPV 9.5 fL (7.6-11.3); RBC Red Blood Cell Count 5.09 M/uL (4.33-5.43)
[2019-01-23 12:18] LABS: Potassium 3.2 mmol/L (3.5-5.1)
[2019-01-23 12:47] LABS: Urine White Blood Cell Casts OK
[2019-01-23 12:48] LABS: Blood Morphology Comment NOT SEEN (NOT SEEN); Platelet Estimate ADEQ
--- NOTE | 2019-01-23 12:51 | RAD REPORT ---
EXAM DESCRIPTION: [place] Single View01/23/2019 11:36 am CLINICAL HISTORY: Chest pain COMPARISON: September 2018 FINDINGS: Upper lobe vessels are prominent indicative of pulmonary venous hypertension The lungs appear clear of acute infiltrate. The heart is mildly to moderately enlarged. Pacemaker le ads are in place.
--- NOTE | 2019-01-23 13:03 | EDPHYS ---
Physician Documentation [facility] Name: Geovanny Moore Age: 73 yrs Sex: Male : 1945 Arrival Date: 01/23/2019 Time: 10:32 Bed 5 Private MD: ED Physician Manny Aldrich HPI: 01/23 11:00 This 73 yrs old Male presents to ER via EMS with complaints of Hip Pain. ps1 11:00 patient c/o mechanical fall x2 once yesterday and today. States no LOC. Hit head and ps1 has left hip and knee pain. Pain rated as moderate. BIBEMS. Is ambulatory. Uses walker. No leg length discrepancy. Has CHF with pitting edema that is at baseline. Pt of [facility]. Recent eval at [facility]. States heart is better than previous. . Historical: - Allergies: 10:37 Codeine; sg - PMHx: 10:37 CAD; CHF; COPD; defibrilator; defibrillator; Diabetes - NIDDM; Hypertension; Myocardial sg infarction; - Immunization history:: Adult Immunizations up to date. - Social history:: Smoking status: Patient/guardian denies using tobacco. - Ebola Screening: : Patient negative for fever greater than or equal to 101.5 degrees Fahrenheit, and additional compatible Ebola Virus Disease symptoms Patient denies exposure to infectious person Patient denies travel to an Ebola-affected area in the 21 days before illness onset No symptoms or risks identified at this time. ROS: 11:00 Constitutional: Negative for fever, chills, and weight loss, Eyes: Negative for injury, ps1 pain, redness, and discharge, ENT: Negative for injury, pain, and discharge, Respiratory: Negative for shortness of breath, cough, wheezing, and pleuritic chest pain, Abdomen/GI: Negative for abdominal pain, nausea, vomiting, diarrhea, and constipation. 11:00 Skin: Negative for injury, rash, and discoloration, Neuro: Negative for headache, weakness, numbness, tingling, and seizure. 11:00 Cardiovascular: Positive for edema. 11:00 MS/extremity: Positive for pain, tenderness, of the left hip. Exam: 11:00 Constitutional: This is a well developed, well nourished patient who is awake, alert, ps1 and in no acute distress. Head/Face: Normocephalic, atraumatic. Eyes: Pupils equal round and reactive to light, extra-ocular motions intact. Lids and lashes normal. Conjunctiva and sclera are non-icteric and not injected. Chest/axilla: Normal chest wall appearance and motion. Nontender with no deformity. No lesions are appreciated. Respiratory: Lungs have equal breath sounds bilaterally, clear to auscultation and percussion. No rales, rhonchi or wheezes noted. No increased work of breathing, no retractions or nasal flaring. Abdomen/GI: Soft, non-tender, with normal bowel sounds. No distension or tympany. No guarding or rebound. No evidence of tenderness throughout. 11:00 Musculoskeletal/extremity: Extremities: grossly normal except: noted in the left hip: pain, noted in the left knee: pain. Vital Signs: 10:35 BP 138 / 64; Pulse 88; Resp 16; Temp 97.2; Pulse Ox 97% on R/A; Pain 4/10; sg 11:35 BP 132 / 66; Pulse 82; Resp 17; Temp 97.2; Pulse Ox 98% on R/A; sg MDM: 10:34 Patient medically screened. ps1 11:00 Data reviewed: vital signs, nurses notes. ps1 11:57 ED course: patient is refusing CT head and neck. Patient does not have injury to leg. ps1 Discussed risks and benefits up and to permanent disability or in light of elderly head injury and increased risk of occult injury. Pt verbalized understanding. AMA paperwork signed. . 01/23 10:34 Order name: Basic Metabolic Panel ps1 01/23 10:34 Order name: CBC with Diff ps1 01/23 10:34 Order name: XRAY Pelvis ps1 01/23 10:34 Order name: XRAY Chest (1 view) ps1 01/23 10:34 Order name: Creatinine for Radiology ps1 01/23 10:34 Order name: Type And Screen ps1 01/23 10:34 Order name: Femur Left XRAY ps1 Administered Medications: No medications were administered Disposition: 01/23/19 12:00 Patient has left against medical advice. Impression: Fall, Left leg pain, Abrasions and contusions, multiple. - Patients states they are going to Home. - Condition is Stable. Follow up: Private Physician; When: As needed; Reason: Further diagnostic work-up, Recheck today's complaints, Continuance of care, Re-evaluation by your physician. Follow up: Emergency Department; When: As needed; Reason: Worsening of condition. - Problem is new. - Symptoms are unchanged. Signatures: Dispatcher [employer] EDJayce Lisa, RN RN sg Falguni Damon RN RN iw Manny Aldrich MD MD ps1 Corrections: (The following items were deleted from the chart) 12:13 12:00 01/23/2019 12:00 Patients has left against medical advice. Impression: Fall; Left iw leg pain; Abrasions and contusions, multiple. Patient states they are going to Home. Condition is Stable. Follow up: Private Physician; When: As needed; Reason: Further diagnostic work-up, Recheck today's complaints, Continuance of care, Re-evaluation by your physician. Follow up: Emergency Department; When: As needed; Reason: Worsening of condition. Problem is new. Symptoms are unchanged. ps1
--- NOTE | 2019-01-23 13:03 | ER ---
Nurse's Notes [facility] Name: Geovanny Moore Age: 73 yrs Sex: Male : 1945 Arrival Date: 01/23/2019 Time: 10:32 Bed 5 Private MD: Diagnosis: Fall;Left leg pain;Abrasions and contusions, multiple Presentation: 01/23 10:32 Presenting complaint: EMS states: Fall from standing position yesterday morning reports sg fell on his left hip and had some pain, pt reports falling from standing position again this morning but landed on his left knee, pt now complaining of pain to left knee and left hip, denies head injury denies LOC, reports using a walker at home. Transition of care: patient was not received from another setting of care. Onset of symptoms was January 23, 2019. Risk Assessment: Do you want to hurt yourself or someone else? Patient reports no desire to harm self or others. Initial Sepsis Screen: Does the patient meet any 2 criteria? No. Patient's initial sepsis screen is negative. Does the patient have a suspected source of infection? No. Patient's initial sepsis screen is negative. Care prior to arrival: None. 10:32 Method Of Arrival: EMS: [facility] 10:32 Acuity: KIARA 4 sg Triage Assessment: 10:45 General: Appears in no apparent distress. well groomed, well developed, well nourished, sg Behavior is calm, cooperative, appropriate for age. Pain: Complains of pain in left knee and left hip Quality of pain is described as aching, tender. Neuro: Level of Consciousness is awake, alert, obeys commands, Oriented to person, place, time, Financial Investment Adviser are equal bilaterally Speech is normal, Facial symmetry appears normal. Cardiovascular: Patient's skin is warm and dry. Chest pain is denied. Respiratory: Airway is patent Respiratory effort is even, unlabored, Respiratory pattern is regular, symmetrical. GI: Abdomen is round non-distended. : No signs and/or symptoms were reported regarding the genitourinary system. Derm: Skin is pink, warm \T\ dry. Musculoskeletal: Circulation, motion, and sensation intact. Range of motion: intact in all extremities, Swelling absent. Historical: - Allergies: 10:37 Codeine; sg - PMHx: 10:37 CAD; CHF; COPD; defibrilator; defibrillator; Diabetes - NIDDM; Hypertension; Myocardial sg infarction; - Immunization history:: Adult Immunizations up to date. - Social history:: Smoking status: Patient/guardian denies using tobacco. - Ebola Screening: : Patient negative for fever greater than or equal to 101.5 degrees Fahrenheit, and additional compatible Ebola Virus Disease symptoms Patient denies exposure to infectious person Patient denies travel to an Ebola-affected area in the 21 days before illness onset No symptoms or risks identified at this time. Screenin:57 Fall Risk Fall in past 12 months (25 points). ph 11:57 Abuse screen: Denies threats or abuse. Denies injuries from another. Nutritional ph screening: No deficits noted. Tuberculosis screening: No symptoms or risk factors identified. Assessment: 11:55 Reassessment: Dr Aldrich at bedside to speak w/ pt, pt refusing CT scan, Dr Aldrich ph explained reason and importance of CT, pt continues to refuse, will leave AMA. Vital Signs: 10:35 BP 138 / 64; Pulse 88; Resp 16; Temp 97.2; Pulse Ox 97% on R/A; Pain 4/10; sg 11:35 BP 132 / 66; Pulse 82; Resp 17; Temp 97.2; Pulse Ox 98% on R/A; sg ED Course: 10:32 Patient arrived in ED. sg 10:32 Manny Aldrich MD is Attending Physician. ps1 10:35 Triage completed. sg 10:35 Arm band placed on. sg 10:38 Jayce Marie, RN is Primary Nurse. sg 10:45 Bed in low position. Call light in reach. Door closed. Noise minimized. Warm blanket ph given. Pillow given. Head of bed elevated. 10:51 EKG done, by termite control technician. reviewed by Manny Aldrich MD. at1 11:09 Note: pt refused to do ct while in the dept. taken back to er. Patient moved to CT via stretcher. 12:10 No provider procedures requiring assistance completed. Patient did not have IV access sg during this emergency room visit. 13:06 XRAY Pelvis In Process Unspecified. EDMS 13:06 XRAY Chest (1 view) In Process Unspecified. EDMS 13:06 Femur Left XRAY In Process Unspecified. EDMS Administered Medications: No medications were administered Outcome: 12:13 Patient left the ED. 12:20 AMA AMA form signed 12:20 Condition: good 12:20 Discharge instructions given to patient, family, Instructed on follow up and referral plans. safety practices, Demonstrated understanding of instructions. Signatures: Dispatcher [employer] EDMS Jayce Marie RN RN sg Jones, Susan sj Williams, Irene, RN RN Kirstie Meza, commercial representative EKG Tat1 Odessa Ojeda RN RN Manny Aldrich MD MD ps1
--- NOTE | 2019-01-23 17:19 | EKG ---
Test Date: 2019-01-23 Test Time: 10:33:33 Block Handler: ANDREA MEASUREMENT RESULTS: Intervals: Rate: 92 [place]: QRSD: 160 QT: 454 QTc: 561 [place]: P: [place]: QRS: 43 T: 158 INTERPRETIVE STATEMENTS: Electronic ventricular pacemaker Compared to ECG 10/09/2018 12:56:07 No significant changes Electronically Signed On 01-23-19 17:17:46 CDT by Willy Morel
[2019-01-23 18:25] VITALS: TEMP 97.2
[2019-01-23 18:27] VITALS: BP 132/66; O2SAT 98
== END 2019-01-23 12:13 | disposition left against medical advice (07) ==
LOC: ER 10:24
DX: M79.605 Pain in left leg (principal); W18.30XA Fall on same level, unspecified, initial encounter; Y93.9 Activity, unspecified; Y92.9 Unspecified place or not applicable; I50.9 Heart failure, unspecified; Z88.6 Allergy status to analgesic agent
CPT/HCPCS: 36415; 71045; 72170; 80048; 85025; 86850; 86900; 86901; 93005; 99284

== ENCOUNTER 2019-02-10 08:19 | Emergency (ER) | payer OTHER ==
--- OUTSIDE RECORDS SUMMARY | 2019-02-10 08:23 | XMS REPORT ---
:1945 [facility] Address [address] [place] [address] [address] [place] [address] Care Team Providers Name Role Phone Unavailable Unavailable Unavailable Problems This patient has no known problems. Allergies, Adverse Reactions, Alerts This patient has no known allergies or adverse reactions. Medications This patient has no known medications.
--- OUTSIDE RECORDS SUMMARY | 2019-02-10 08:23 | XMS REPORT | Continuity of Care Document ---
:1945 Author Organization [employer] Care Team Providers Name Role Phone [employer] Unavailable Unavailable Problems Problem Status Onset Classification Date Comments Source Date Reported TIA L SIDED Active 03/17/20 [facility] TIA L SIDED Active 03/17/20 [facility] WEAKNESS/ABNORMAL [address] [facility] Center Cardiac Active Problem 12/15/2018 [facility] defibrillator in Neuro situ Cervical Active Problem 12/15/2018 [facility] spondylosis Neuro Diabetes mellitus Active Problem 12/15/2018 [facility] type II Neuro HTN - Hypertension Active Problem 12/15/2018 [facility] Hyperlipidemia Active Problem 12/15/2018 [facility] Neuropathy Active Problem 12/15/2018 [facility] Simple obesity Active Problem 12/15/2018 [facility] Syncope Active Problem 12/15/2018 [facility] TRANS CEREB Active [facility] Medications No Data Provided for This Section Allergies, Adverse Reactions, Alerts Substance Category Reaction Severity Reaction Status Date Comments Source type Reported No Known Assertion Drug [facility] Medication allergy Neuro Allergies Immunizations No Data Provided for This Section Results No Data Provided for This Section Pathology Reports No Data Provided for This Section Diagnostic Reports Report Value Date Source Brain/Neck CTA EXAM: CT BRAIN WITHOUT CONTRAST 03/17/2014 [facility] Medical EXAM: CTA OF THE NECK Center EXAM: CTA OF THE BRAIN DATE: Mar 17, 2014 05:57:00 AM INDICATION: [...] images are provided. COMPARISON: Head CT presence [facility] March 16, 2014 11: 58 [...] cervical common carotid arteries have a normal course, caliber, and contour. There are areas of [...] referencing the distal internal carotid artery.) Brain Stroke wo EXAM: CT BRAIN WITHOUT CONTRAST 03/17/2014 [facility] contrast CT EXAM: CTA OF THE NECK Center EXAM: CTA OF THE BRAIN DATE: Mar 17, 2014 05:57:00 AM INDICATION: [...] images are provided. COMPARISON: Head CT presence [facility] March 16, 2014 11: 58 [...] cervical common carotid arteries have a normal course, caliber, and contour. There are areas of [...] referencing the distal internal carotid artery.) Chest 1view EXAM: XR CHEST ONE VIEW: 03/17/2014 [facility] DATE: 2014-03-17 04:28:00 INDICATION: CVA/TIA TECHNIQUE: Semiupright portable chest radiograph [...] No acute radiographic abnormality of the chest. Consultation Notes No Data Provided for This Section Discharge Summaries No Data Provided for This Section History and Physicals No Data Provided for This Section Vital Signs No Data Provided for This Section Encounters Location Location Encounter Encounter Reason Attending ADM DC Status Source Details Type Number For Provider Date Date Visit Outpatient [id number] SHAR 08/30 [facility] [place] [facility] [id number] SHAR 09/27 [facility] [place] Outpatient [id number] SHAR 10/11 [facility] [place] Outpatient [id number] SHAR 10/20 [facility] [place] Outpatient [id number] SHAR 12/13 [facility] [place] [facility] Ambulatory [id number] Shar 12/13 12/13 [facility] Neurology Pre-Reg [facility] [place] Procedures No Data Provided for This Section Assessment and Plan No Data Provided for This Section Plan of Care No Data Provided for This Section Social History Social History Date Source Social History TypeResponse 08/30/2018 [facility] Neuro Employment/School Status: Retired. Smoking Status Current every day smoker; Type: Cigarettes; Exposure to Tobacco Smoke Unable to obtain; Cigarette Smoking Last 365 Days Yes; Reg Smoking Cessation Counseling No entered on: 09/27/18 Family History No Data Provided for This Section Advance Directives No Data Provided for This Section Functional Status No Data Provided for This Section
--- OUTSIDE RECORDS SUMMARY | 2019-02-10 08:23 | XMS REPORT | Clinical Summary ---
:1945 Author Organization [facility] Address [address] [place] [address] Care Team Providers Name Role Phone Luis [...] Essential hypertension 10/21/2018 Coronary artery disease involving otoe-[place]ou[place] coronary artery 10/21/2018 Mixed hyperlipidemia 10/21/2018 ICD (implantable cardioverter-defibrillator) discharge 10/20/2018 Encounters Date Type Specialty Care Team Description 10/22/2018 Patient Outreach Quality Jennifer Reddy RN 10/20/2018 - Hospital Encounter General Internal Nelson, ICD ( implantable cardioverter-defibrillator) discharge (Primary Dx); 10/22/2018 Medicine Harrison Fall Sr., Essential hypertension; Coronary artery disease involving o[place]e-[place]ou[place] coronary artery of otoe-[place]ou[place] heart without angina pectoris; Mixed hyperlipidemia 10/20/2018 Intake Access N/A after 02/09/2018 Immunizations Name Dates Previously Given Next Due [...] Taken Blood Pressure 139/49 10/22/2018 8:23 AM B[facility]B WEEDER Pulse 60 10/22/2018 9:00 AM [facility] WE[facility]ER Temperature 36.1 C (97 F) 10/22/2018 8:23 AM [facility]ER Respiratory Rate 18 10/22/2018 8:23 AM [facility] WEEDER Oxygen Saturation 97% 10/22/2018 8:23 AM [facility] WE[facility]ER Inhaled Oxygen Concentration - - Weight 96.6 kg (213 lb) 10/22/2018 7:24 AM B[facility] WEEDER Height 188 cm (6' 2") 10/20/2018 8:21 PM [facility] WEEDER Body Mass Index 27.35 10/20/2018 8:21 PM [facility] WE[facility]ER Plan of Treatment Health Maintenance Due Date Last Done Comments COLONOSCOPY SCREENING 11/25/1995 SHINGLES VACCINES (#1) 11/25/1995 65+ PNEUMOCOCCAL VACCINE (1 of 2 - PCV13) 2010 INFLUENZA VACCINE 03/16/2019 10/21/2018 Implants Implanted Type Area Implementation Lead Device Shelf Model / Identifier Expiration Serial / Date Lot Defibrillators Devices Icd And Related Products-10/20/2010 Defibrillators Right : [place] Implanted: 10/20/2010 (Quantity not on file) Devices ICD and Chest SCIENTIFIC/INT Related Products Wall ERVENTIONAL CARDIOLOGY (SCIMED) Procedures Procedure Name Priority Date/Time Associated Comments Diagnosis POC GLUCOSE Routine 10/22/2018 8:26 Results for this AM [facility] procedure are in the results section. PARTIAL THROMBOPLASTIN Routine 10/22/2018 5:45 Results for this TIME (PTT) AM [facility] procedure are in the results section. HC COMPLETE BLD COUNT Routine 10/22/2018 5:45 Results for this W/AUTO DIFF AM [facility] procedure are in the results section. ESTIMATED GFR Routine 10/22/2018 4:00 Results for this AM [facility] procedure are in the results section. MAGNESIUM LEVEL Routine 10/22/2018 4:00 Results for this AM [facility] procedure are in the results section. PHOSPHORUS LEVEL Routine 10/22/2018 4:00 Results for this AM [facility] procedure are in the results section. IONIZED CALCIUM Routine 10/22/2018 4:00 Results for this AM [facility] procedure are in the results section. COMPREHENSIVE METABOLIC Routine 10/22/2018 4:00 Results for this PANEL AM [facility] procedure are in the results section. POC GLUCOSE Routine 10/21/2018 9:13 Results for this PM [facility] procedure are in the results section. POC GLUCOSE Routine 10/21/2018 5:29 Results for this PM [facility] procedure are in the results section. CREATININE LEVEL, Routine 10/21/2018 4:25 Results for this URINE, RANDOM PM [facility] procedure are in the results section. PROTEIN, URINE, RANDOM Routine 10/21/2018 4:25 Results for this PM [facility] procedure are in the results section. SODIUM LEVEL, URINE, Routine 10/21/2018 4:25 Results for this RANDOM PM [facility] procedure are in the results section. PARTIAL THROMBOPLASTIN Routine 10/21/2018 4:05 Results for this TIME (PTT) PM [facility] procedure are in the results section. US ABDOMEN COMPLETE Routine 10/21/2018 1:56 Results for this PM [facility] procedure are in the results section. POC GLUCOSE Routine 10/21/2018 11:29 Results for this AM [facility] procedure are in the results section. PARTIAL THROMBOPLASTIN Timed 10/21/2018 9:03 Results for this TIME (PTT) AM [facility] procedure are in the results section. POC GLUCOSE Routine 10/21/2018 7:48 Results for this AM [facility] procedure are in the results section. ESTIMATED GFR Routine 10/21/2018 3:09 Results for this AM [facility] procedure are in the results section. TROPONIN Routine 10/21/2018 3:09 Results for this AM [facility] procedure are in the results section. MAGNESIUM LEVEL Routine 10/21/2018 3:09 Results for this AM [facility] procedure are in the results section. PHOSPHORUS LEVEL Routine 10/21/2018 3:09 Results for this AM [facility] procedure are in the results section. IONIZED CALCIUM Routine 10/21/2018 3:09 Results for this AM [facility] procedure are in the results section. COMPREHENSIVE METABOLIC Routine 10/21/2018 3:09 Results for this PANEL AM [facility] procedure are in the results section. PARTIAL THROMBOPLASTIN Timed 10/21/2018 2:55 Results for this TIME (PTT) AM [facility] procedure are in the results section. HC COMPLETE BLD COUNT Routine 10/21/2018 2:55 Results for this W/AUTO DIFF AM [facility] procedure are in the results section. RESPIRATORY PATHOGEN Routine 10/20/2018 11:50 Results for this PANEL PM [facility] procedure are in the results section. ECHOCARDIOGRAM 2D STAT 10/20/2018 11:10 Results for this COMPLETE W MMODE PM [facility] procedure are in SPECTRAL COLOR DOPPLER the results (96087) section. XR CHEST 1 VW PORTABLE STAT 10/20/2018 9:01 Results for this PM [facility] procedure are in the results section. POC GLUCOSE Routine 10/20/2018 8:11 Results for this PM [facility] procedure are in the results section. PHOSPHORUS LEVEL Routine 10/20/2018 8:10 Results for this PM [facility] procedure are in the results section. LIPID PANEL Routine 10/20/2018 8:10 Results for this PM [facility] procedure are in the results section. MAGNESIUM LEVEL Routine 10/20/2018 8:10 Results for this PM [facility] procedure are in the results section. LIPASE LEVEL Routine 10/20/2018 8:10 Results for this PM [facility] procedure are in the results section. AMYLASE LEVEL Routine 10/20/2018 8:10 Results for this PM [facility] procedure are in the results section. B NATRIURETIC PEPTIDE Routine 10/20/2018 8:10 Results for this PM [facility] procedure are in the results section. HEMOGLOBIN A1C Routine 10/20/2018 8:10 Results for this PM [facility] procedure are in the results section. BILIRUBIN DIRECT Routine 10/20/2018 8:10 Results for this PM [facility] procedure are in the results section. ESTIMATED GFR Routine 10/20/2018 8:10 Results for this PM [facility] procedure are in the results section. PARTIAL THROMBOPLASTIN Routine 10/20/2018 8:10 Results for this TIME (PTT) PM [facility] procedure are in the results section. PROTHROMBIN TIME WITH Routine 10/20/2018 8:10 Results for this INR PM [facility] procedure are in the results section. HC COMPLETE BLD COUNT Routine 10/20/2018 8:10 Results for this W/AUTO DIFF PM [facility] procedure are in the results section. IONIZED CALCIUM Routine 10/20/2018 8:10 Results for this PM [facility] procedure are in the results section. T3 Routine 10/20/2018 8:10 Results for this PM [facility] procedure are in the results section. T4, FREE Routine 10/20/2018 8:10 Results for this PM [facility] procedure are in the results section. THYROID STIMULATING Routine 10/20/2018 8:10 Results for this HORMONE PM [facility] procedure are in the results section. TROPONIN Routine 10/20/2018 8:10 Results for this PM [facility] procedure are in the results section. COMPREHENSIVE METABOLIC Routine 10/20/2018 8:10 Results for this PANEL PM [facility] procedure are in the results section. LACTIC ACID LEVEL Routine 10/20/2018 8:10 Results for this PM [facility] procedure are in the results section. ECG 12-LEAD Routine 10/20/2018 7:54 Results for this PM [facility] procedure are in the results section. after 02/09/2018 Results POC glucose (10/22/2018 8:26 AM [facility]ER)Only the most recent of6 resultswithin the time period is included. POC glucose 101 (H) 65 - 99 mg/dL [facility] Comment: [facility] Notified RN Meter ID: [id number] [employer] Teacher: Faviola Garcia Specimen Performing Organization Address City/[facility]/Zipcode Phone Number [facility] DEPARTMENT OF PATHOLOGY AND [address] [place] [address] [facility] MEDICINE [address] [address] Partial thromboplastin time, activated (10/22/2018 5:45 AM B[facility]ER)Only the most recent of5 resultswithin the time period is included. PTT 32.8 23.0 - 36.0 [facility] Comment: [facility] HOSPITAL PTT therapeutic range for unfractionated heparin is 61.0-112.0 seconds which corresponds to Anti-Xa 0.3-0.7 U/ml. Specimen Blood Performing Organization Address City/[facility] Phone Number [facility] DEPARTMENT OF PATHOLOGY AND [address], [place] [address] [place] [phone] CBC with platelet and differential (10/22/2018 5:45 AM B[facility] WEEDER)Only the most recent of3 resultswithin the time period is included. Pathologist [facility] WBC 8.85 4.50 - 11.00 [facility] k/uL HOSPITAL RBC 4.21 (L) 4.40 - 6.00 [facility] m/uL [facility] HGB 12.1 (L) 14.0 - 18.0 [facility] g/dL [facility] HCT 39.3 (L) 41.0 - 51.0 % [facility] MCV 93.3 82.0 - 100.0 [facility] MCH 28.7 27.0 - 34.0 pg [facility] MCHC 30.8 (L) 31.0 - 37.0 [facility] gdL [facility] RDW - SD 46.6 37.0 - 55.0 fL [facility] MPV 12.4 8.8 - 13.2 fL [facility] Platelet count 141 (L) 150 - 400 k/uL [facility] Nucleated RBC 0.00 /100 WBC [facility] Neutrophils 53.9 39.0 - 69.0 % [facility] Lymphocytes 28.6 25.0 - 45.0 % [facility] Monocytes 11.5 (H) 0.0 - 10.0 % [facility] Eosinophils 4.1 0.0 - 5.0 % [facility] Basophils 1.4 (H) 0.0 - 1.0 % [facility] Immature granulocytes 0.5Comment: 0.0 - 1.0 % [facility] "Immature HOSPITAL granulocytes" (promyelocytes , myelocytes, metamyelocytes ) Specimen Blood Performing Organization Address City/State/Zipcode Phone Number [facility] DEPARTMENT OF PATHOLOGY AND [address] [place] [phone] [place] [phone] Estimated GFR (10/22/2018 4:00 AM BULB WEEDER)Only the most recent of3 resultswithin the time period is included. [facility] Estimated GFR 33 (A) mL/min/1.73 [facility] Comment: HOSPITAL CatergoryUnitsInterpretation G1 >=90 Normal or high G2 60-89Mildly decreased U6k10-14Utlxeg to moderately decreased J4n66-20Povxtzkhlf to severely decreased G4 15-29Severely decreased G5 <15Kidney failure The eGFR was calculated using the Chronic Kidney Disease Epidemiology Collaboration (CKD-EPI) equation. Interpretation is based on recommendations of the National Kidney Foundation-Kidney Disease Outcomes Quality Initiative (NKF-KDOQI) published in 2014. Specimen Plasma specimen Performing Organization Address City/[facility] Phone Number [facility] DEPARTMENT OF PATHOLOGY AND [address] [place] [phone] Phosphorus level (10/22/2018 4:00 AM BULB WEEDER)Only the most recent of3 resultswithin the time period is included. Phosphorus 2.7 2.4 - 4.5 mg/dL [facility] Specimen Plasma specimen Performing Organization Address [facility] Phone Number [facility] DEPARTMENT OF PATHOLOGY AND [address] [place] [address] Magnesium level (10/22/2018 4:00 AM BULB WEEDER)Only the most recent of3 resultswithin the time period is included. Magnesium 2.2 1.6 - 2.4 mg/dL [facility] Specimen Plasma specimen Performing Organization Address [facility] Phone Number [facility] DEPARTMENT OF PATHOLOGY AND [address] [place] [address] Ionized calcium (10/22/2018 4:00 AM BULB WEEDER)Only the most recent of3 resultswithin the time period is included. pH 7.46 [facility] Ionized calcium 1.13 1.11 - 1.32 mmol/L [facility] Specimen Plasma specimen Performing Organization Address [facility] Phone Number [facility] DEPARTMENT OF PATHOLOGY AND [address] [place] [address] Comprehensive metabolic panel (10/22/2018 4:00 AM BULB WEEDER)Only the most recent of3 resultswithin the time period is included. Sodium 140 135 - 148 [facility] mEq/L [facility] Potassium 4.5 3.5 - 5.0 [facility] mEq/L [facility] Chloride 104 98 - 112 mEq/L [facility] CO2 27 24 - 31 mEq/L [facility] Anion gap 9@ANIO 7 - 15 mEq/L [facility] BUN 34 (H) 8 - 23 mg/dL [facility] Creatinine 1.94 (H) 0.70 - 1.20 [facility] mg/dL [facility] Glucose 118 (H) 65 - 99 mg/dL [facility] Calcium 9.0 8.8 - 10.2 [facility] mg/dL [facility] Protein 6.0 (L) 6.3 - 8.3 g/dL [facility] Comment: HOSPITAL 4.6-7.0 g/dL 1 week 4.4-7.6 g/dL 7 months-1year5.1-7.3 g/dL 1-2 years5.6-7.5 g/dL >3 years6.0-8.0 g/dL 18-150 6.3-8.3 g/dL Albumin 2.7 (L) 3.5 - 5.0 g/dL [facility] A/G ratio 0.8 0.7 - 3.8 [facility] Alkaline phosphatase 112 40 - 129 U/L [facility] AST 32 10 - 50 U/L [facility] ALT 36 5 - 50 U/L [facility] Total bilirubin 0.3 0.0 - 1.2 [facility] mg/dL HOSPITAL Specimen Plasma specimen Performing Organization Address City/[facility]ode Phone Number [facility] DEPARTMENT OF PATHOLOGY AND [address] [place] [address] [address] Sodium level, urine, random (10/21/2018 4:25 PM BULB WEEDER) Sodium, urine, random 34 mEq/L [facility] Specimen Urine Performing Organization Address City/[facility] Phone Number [facility] DEPARTMENT OF PATHOLOGY AND [address] [place] [address] [address] Protein, urine, random (10/21/2018 4:25 PM BULB WEEDER) Protein, urine random 26 mg/dL [facility] Specimen Urine Performing Organization Address City/[facility]/Zipcode Phone Number [facility] DEPARTMENT OF PATHOLOGY AND [address] [place] [address] [facility] [address] [place] [address] Creatinine level, urine, random (10/21/2018 4:25 PM BULB WEEDER) Creatinine, urine, 246 mg/dL [facility] Specimen Urine Performing Organization Address City/[facility]/Zipcode Phone Number [facility] DEPARTMENT OF PATHOLOGY AND [address] [place] [phone] [place] [address] [place] Abdomen Complete (10/21/2018 1:56 PM BULB WEEDER) Specimen Narrative Performed At EXAM: US ABDOMEN [...] ascites. PLEURAL EFFUSION:There are no pleural effusions. [facility]-[id number] Procedure Note Interface, Radiology Results Incoming - 10/21/2018 3:18 PM [facility]ER EXAM: US ABDOMEN COMPLETE CLINICAL DATA: Abd [...] PLEURAL EFFUSION: There are no pleural effusions. [facility]-[id number] Performing Organization Address [facility] Cent[facility]ode Phone Number [address] [address] Troponin (10/21/2018 3:09 AM BULB WEEDER)Only the most recent of2 resultswithin the time period is included. [facility] Troponin <0.30 0.00 - 0.30 [facility] Comment: ng/mL HOSPITAL 0.30 - 1.49 ng/mlMay indicate increased risk of acute coronary syndrome. >=1.5 ng/mlConsistent with acute myocardial infarction. The diagnostic value of a single normal or non-diagnostic result is questionable.Serial samples at 2-6 hour intervals are required to rule out acute myocardial injury. Specimen Plasma specimen Performing Organization Address City/[facility]/Zipcode Phone Number [facility] DEPARTMENT OF PATHOLOGY AND [address] [place] [address] [facility] MEDICINE [address] [address] Respiratory pathogen panel (10/20/2018 11:50 PM BULB WEEDER) [facility] Respiratory Negative for all pathogens tested: [facility] pathogen panel Negative for Adenovirus [facility] Negative for Coronavirus HKU1 [facility] Negative for Coronavirus NL63 Negative for [...] Right Performing Organization Address City/State/Zipcode Phone Number [facility] DEPARTMENT OF PATHOLOGY AND [address] [place] [address] [place] [address] Echocardiogram complete w contrast and 3D if needed (10/20/2018 11:10 PM BULB WEEDER) Specimen Narrative Performed At [facility] Echocardiography Report [address] [place] [address] Pat.Name:GEOVANNY LOPEZ Pat.ID:[id number] St.Date: 10/20/2018 Refer.MD:HARRISON ALLISON MD Exam Time: 9:27:00 PMStudy Type:Routine Echo Height:72inWeight: 209lb BSA: 2.17 m2 DOBAge:1945,72Y Sex: MALEBP:117/55 HR:61 bpmSonogrphr: Russell Ceballos [facility] Pat. Stat.:Inpatient Room:[address] Study Status:Final Echo Event ID:[id number] Order ID:[id number] Reason for Study:Hear failure known,follow up s/p [...] PA systolic pressure. MEASUREMENTS: 2D Parasternal Long Williams LVIDd6.8 cmIndex3.1 cm/m Ao An2.7 cm LVIDs5.2 cmAo Rtd 3.8 cm Index1.7 cm/m LV%fs 23.5 % LV Qike556.5 g(122-174) IVSd 1 cmLVM Djjkr487.2 g/m2 LVPWd1.2 cmRWT0.4 LA Ds4 cmLVOT 2.1 cm LV EF Biplane JLLTT719.4 ml (65-193) Index85.4 ml/m LV SV 59.7 ml OFIMZ301.7 leWrnwn31.9 ml/m LV EF 32.2 %(63-77) LA Sng Plane LA Area 26.8 cm2(8.8-23.4) LA Vol95.8 ml Index44.2 ml/m LA LngAx 6.3 cm RA Sng Plane RA Area 17 cm2(8.3-19.5) RA Vol47.6 ml Index21.9 ml/m RA LngAx 5.3 cm DOPPLER LVOT Stroke Vol LVOT 2.1 cmLVOT CO2.8 l/min LVOT TVI11.9 cmLVOT CI1.3 l/m/m2 LVOT Tm277 udfwSF88 bpm LVOT SV 41.1 ml WALL MOTION: RESTING WALL MOTION: Basal Inferoseptal, Basal Inferior, Basal Inferolateral, Mid Inferoseptal, Mid Inferior, Mid Inferolateral, Apical Septal, Apical jordan are akinetic.Apical Inferior wall is hypokinetic.Basal Anteroseptal, Mid Anteroseptal jordan are mildly hypokinetic. Normal in all other jordan. Wall Index=2.1 Signed 10/21/2018 10:12 AM Marti Garnica MD Procedure Note Interface, Radiology Results In - 10/21/2018 10:13 AM [facility] Echocardiography Report [address] [place] [address] Pat.Name: GEOVANNY LOPEZ Pat.ID: [id number] .Date: 10/20/2018 Ilia.MD: HARRISON ALLISON MD Exam Time: 9:27:00 PM Study Type:Routine Echo Height: 72in Weight: 209lb BSA: 2.17 m2 Age: 4 1945,72Y Sex: MALE BP: 117/55 HR: 61 bpm Sonogrphr: Russell Ceballos [facility] Pat. Stat.:Inpatient Room: WT 1028 A Study Status:Final Echo Event ID:[id number] Order ID: [id number] Reason for Study:Hear failure known,follow up s/p [...] PA systolic pressure. MEASUREMENTS: 2D Parasternal Long Williams LVIDd 6.8 cm Index 3.1 cm/m Ao [...] AM Marti Garnica MD Performing Organization Address City/State/[facility] Phone Number [facility] [address] [place] [address] XR Chest 1 Vw Portable (10/20/2018 9:01 PM BULB WEEDER) Specimen Narrative Performed At Examination:XR CHEST 1 [...] seen. Impression: No active cardiopulmonary disease identified. [facility]-[id number] Procedure Note Hm Interface, Radiology Results Incoming - 10/20/2018 9:22 PM [facility]ER Examination: XR CHEST 1 VW PORTABLE Clinical History: ICU pt stable with no clinical status changes, new admit Comparison: 01/28/2011 Technique: Single frontal view of the chest is obtained. Findings: The lungs are free of infiltrate. The heart size is normal. No pleural effusion is seen. Right transvenous pacer device is noted. No pneumothorax is seen. Impression: No active cardiopulmonary disease identified. [facility]-[id number] Performing Organization Address [facility] Centercode Phone Number [facility] [address] [place] [address] Prothrombin time with INR (10/20/2018 8:10 PM BULB WEEDER) Prothrombin time 14.2 11.5 - 14.5 [facility] INR 1.1 [facility] Comment: [facility] International Normalized Ratio (INR) is a therapeutic HOSPITAL monitoring tool for patients who are stable on oral anticoagulant therapy. An INR of 2.0-3.0 is suggested for deep vein thrombosis/pulmonary embolism. Specimen Blood Performing Organization Address City/[facility]/Zipcode Phone Number [facility] DEPARTMENT OF PATHOLOGY AND [address] [place] [address] [address] T3 (10/20/2018 8:10 PM BULB WEEDER) T3 98 80 - 200 ng/dL [facility] Specimen Blood Performing Organization Address City/[facility]/Zipcode Phone Number [facility] DEPARTMENT OF PATHOLOGY AND [address] [place] [address] [facility] MED[facility] [address] [address] Thyroid stimulating hormone (10/20/2018 8:10 PM BULB WEEDER) TSH 1.48 0.27 - 4.20 uIU/mL [facility] Specimen Blood Performing Organization Address City/[facility] Cent[facility]ode Phone Number [facility] DEPARTMENT OF PATHOLOGY AND [address] [place] [address] T4, free (10/20/2018 8:10 PM BULB WEEDER) T4, free 1.3 0.9 - 1.7 ng/dL [facility] Specimen Blood Performing Organization Address City/[facility]ode Phone Number [facility] DEPARTMENT OF PATHOLOGY AND [address] [place] [address] B natriuretic peptide (10/20/2018 8:10 PM BULB WEEDER) BNP 665 (H) 0 - 100 pg/mL [facility] Specimen Performing Organization Address City/[facility] Phone Number [facility] DEPARTMENT OF PATHOLOGY AND [address] [place] [address] Lipase level (10/20/2018 8:10 PM BULB WEEDER) Lipase 35 13 - 60 U/L [facility] Specimen Blood Performing Organization Address City/[facility] Phone Number [facility] [facility] DEPARTMENT OF PATHOLOGY AND [address] [place] [id number] Lactic acid level (10/20/2018 8:10 PM BULB WEEDER) Lactic acid 2.0 0.5 - 2.2 mmol/L [facility] Specimen Blood Performing Organization Address City/[facility]/Zipcode Phone Number [facility] DEPARTMENT OF PATHOLOGY AND [address] [place] [phone] Hemoglobin A1c (10/20/2018 8:10 PM BULB WEEDER) Hemoglobin A1C 8.1 (H) 4.0 - 5.6 % [facility] Comment: HOSPITAL HbA1c cutoffs for diagnosing diabetes: 4.0% - 5.6%=normal 5.7% - 6.4%=increased risk for diabetes (prediabetes) >=6.5%=diabetes Goals for glycemic control (ADA 2016) < 7.0%Target for non adults with diabetes. More or less stringent targets may be appropriate for individual patients. <7.5% Target for Children and adolescents with type 1 diabetes. Specimen Performing Organization Address City/State/Zipcode Phone Number [facility] DEPARTMENT OF PATHOLOGY AND [address] [place] [phone] Bilirubin direct (10/20/2018 8:10 PM BULB WEEDER) Bilirubin direct <0.2 0.0 - 0.3 mg/dL [facility] Specimen Blood Performing Organization Address City/[facility] Phone Number [facility] DEPARTMENT OF PATHOLOGY AND [address] [place] [phone] Amylase level (10/20/2018 8:10 PM BULB WEEDER) Amylase 31 28 - 100 U/L [facility] Specimen Blood Performing Organization Address City/[facility] Phone Number [facility] DEPARTMENT OF PATHOLOGY AND [address] [place], [place] [phone] [address] [address] Lipid panel (10/20/2018 8:10 PM BULB WEEDER) Cholesterol 132 <200 mg/dL [facility] Triglycerides 202 (H) <150 mg/dL [facility] HDL cholesterol 32 (L) >40 mg/dL [facility] LDL cholesterol 72Comment: Result <100 mg/dL [place] obtained by direct [facility] LDL measurement [facility] Lipid panel [facility] interpretation Comment: [facility] Total Cholesterol (mg/dL) [facility] <200 Desirable [id number] >=240High Triglycerides (mg/dL) <150 Normal [id number] 200-499High >=500Very high HDL Cholesterol (mg/dL) <40Low (male) <40Low (female) LDL Cholesterol (mg/dL) <100 Optimal 100-129Near or above optimal [id number]-hokt 160-189High >=190Very high Risk Catergories that modify [...] (>=200 mg/dL) Specimen Blood Performing Organization Address City/State/Zipcode Phone Number [facility] DEPARTMENT OF PATHOLOGY AND [address] [place] [address] GENOMIC MEDICINE [address] [address] ECG 12 lead (10/20/2018 7:54 PM BULB WEEDER) Ventricular rate 102 [facility]USE Atrial rate 102 [facility] MUSE QRSD interval 180 [facility] MUSE QT interval 436 [facility]USE QTC interval 568 [facility] MUSE QRS axis 1 14 [facility] MUSE T wave axis 175 [facility] MUSE EKG impression Ventricular-paced [facility] MUSE rhythm-Abnormal ECG- Specimen Narrative Performed At Performing Organization Address [facility] Phone Number [facility] [address] [place] [address] after 02/09/2018 Advance Directives Patient has advance care planning documents on file. For more information, please contact:[address] [address]
[2019-02-10] MEDS ORDERED: NA CHLORIDE 0.9% 1,000 ML ONE (08:38)
[2019-02-10] MEDS ORDERED: FENTANYL CITR 100 MCG/2 ML ONE (08:40)
[2019-02-10 08:52] LABS: Protime INR 2.11
[2019-02-10 08:55] LABS: Absolute Lymphocytes (CBC) 2.9 K/uL (0.7-4.9); Basophils % 1.1 % (0-1.3); Eosinophils % 1.7 % (0-4.4); Hematocrit 43.1 % (39.6-49.0); Lymphocytes % 21.1 % (15.3-44.8); MPV 9.6 fL (7.6-11.3); Monocytes % 10.4 % (3.3-12.3); RBC Red Blood Cell Count 5.24 M/uL (4.33-5.43)
[2019-02-10] MEDS ORDERED: LEVALBUTEROL 1.25 MG/3 ML NEB ONE (08:57)
--- NOTE | 2019-02-10 09:14 | RAD REPORT ---
EXAM DESCRIPTION: CT - Head C Spine Mpr Wo Con - 02/10/2019 8:57 am CLINICAL HISTORY: Syncope. Head and neck injury status post fall. Head and neck pain COMPARISON: [address] TECHNIQUE: Computed axial tomography of the head and cervical spine was obtained. Sagittal and coronal reconstruction was performed. All CT scans are performed using dose optimization technique as appropriate and may include automated exposure control or mA/KV adjustment according to patient size. FINDINGS: An intracranial bleed is not seen. Moderate low-density within the left frontal lobe repre sents old infarction. 27 millimeter low-density area has developed within the left occipital lobe. Coarse vascular calcifications are present. The ventricles are normal in caliber. An extra-axial flui d collection is not noted.Fluid within the visualized sinuses and mastoids is not seen A cervical fracture is not visualized. No dislocation is noted. 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 It has more of the appearance of being chronic than acute. This should be zain elated clinically. A cervical fracture is not visualized.
[2019-02-10 09:16] LABS: Bilirubin Direct 0.3 mg/dL (0-0.2); Bilirubin Total 0.8 mg/dL (0.2-1.0); Protein, Total 7.5 g/dL (6.4-8.2)
[2019-02-10 09:20] LABS: Potassium 2.8 mmol/L (3.5-5.1)
--- NOTE | 2019-02-10 09:23 | RAD REPORT ---
EXAM DESCRIPTION: [place] Single View02/10/2019 9:01 am CLINICAL HISTORY: Chest pain COMPARISON: January 23, 2019 FINDINGS: A 3 centimeter lobulated right upper lobe opacity seen on the CT chest same date is not vi sualized on the chest x-ray has is obscured by the pacemaker battery. Left lung is clear Heart is moderately enlarged.
--- NOTE | 2019-02-10 09:39 | RAD REPORT ---
EXAM DESCRIPTION: CT - Thorax Wo Con - 02/10/2019 8:58 am CLINICAL HISTORY: Chest COMPARISON: January 2018 CT chest TECHNIQUE: Computed axial tomography of the chest was obtained. Contrast was not requested. All CT scans are performed using dose optimization technique as appropriate and may include automated exposure control or mA/KV adjustment according to patient size. FINDINGS: The evaluation of mediastinum, terry and vessels is limited secondary to lack of IV contras t administration. 3 centimeter right upper lobe lobulated opacity. Mild COPD. Tiny subpleural nodular opacity right lung unchanged likely benign Sub centimeter mediastinal lymph nodes. No significant mediastinal or hilar lymphadenopathy is seen. A pleural effusion is not present. No pericardial effusion. Moderate cardiomegaly vague nonspecific 9 millimeter low-density area left lobe liver IMPRESSION: 3 centimeter lobulated right upper lobe opacity may represent neoplasm. PET-CT recommend ed
[2019-02-10] MEDS ORDERED: KCL 20 MEQ/100 mL IVPB 20 MEQ/100 ML BAG IV ONE (10:00)
[2019-02-10] MEDS ORDERED: LIDOCAINE/D5W 2,000 MG/500 ML BAG IV ONE (10:04)
--- NOTE | 2019-02-10 10:23 | ER ---
Nurse's Notes [facility] Name: Geovanny Moore Age: 73 yrs Sex: Male : 1945 Arrival Date: 02/10/2019 Time: 08:24 Bed 4 Private MD: Diagnosis: Ventricular tachycardia-cardioverted;Hypokalemia;Chest pain, unspecified Presentation: 02/10 08:29 Presenting complaint: EMS states: from home, complaints of syncopal episode this AM,O2 hj on RA is on the 70's, HR- 60's- 170's on V Tach by EMS;20g L AC; aspirin 325 mg POgiven;. 08:29 Transition of care: patient was not received from another setting of care. Onset of hj symptoms was February 10, 2019. Risk Assessment: Do you want to hurt yourself or someone else? Patient reports no desire to harm self or others. Initial Sepsis Screen: Does the patient meet any 2 criteria? No. Patient's initial sepsis screen is negative. Does the patient have a suspected source of infection? No. Patient's initial sepsis screen is negative. Care prior to arrival: None. 08:29 Method Of Arrival: EMS: [facility] 08:29 Acuity: KIARA 1 hj 08:31 Acuity: KIARA 1 iw Triage Assessment: 08:29 General: Appears in no apparent distress. uncomfortable, Behavior is cooperative, hj appropriate for age, anxious. Pain: Complains of pain in chest. Historical: - Allergies: 08:29 Codeine; hj - Home Meds: 08:29 aspirin 325 mg Oral TbEC once daily [Active]; benazepril 40 mg Oral tab 1 tab once hj daily [Active]; clonazepam 0.5 mg Oral tab 1 tab 3 times per day [Active]; clopidogrel 75 mg Oral tab 1 tab once daily [Active]; furosemide 40 mg Oral tab 1 tab 2 times per day [Active]; glimepiride 1 mg Oral tab 1 tab once daily [Active]; isosorbide mononitrate 60 mg Oral Tb24 1 tab once daily [Active]; losartan 100 mg Oral tab 1 tab once daily [Active]; Nitrostat 0.4 mg SL subl 1 tab [Active]; Perforomist 20 mcg/2 mL inhalation nebu 2 mL 2 times per day [Active]; potassium chloride 10 mEq Oral TbER 1 tab once daily [Active]; pravastatin 40 mg Oral tab 1 tab once daily [Active]; spironolactone 25 mg Oral tab 1 tab 2 times per day [Active]; - PMHx: 08:29 CAD; CHF; COPD; defibrilator; defibrillator; Diabetes - NIDDM; Hypertension; Myocardial hj infarction; - PSHx: 08:29 defib; hj - Immunization history:: Adult Immunizations up to date. - Social history:: Smoking status: Patient uses tobacco products, Patient/guardian denies using alcohol. - Ebola Screening: : Patient negative for fever greater than or equal to 101.5 degrees Fahrenheit, and additional compatible Ebola Virus Disease symptoms Patient denies exposure to infectious person Patient denies travel to an Ebola-affected area in the 21 days before illness onset. Screenin:29 Abuse screen: Denies threats or abuse. Denies injuries from another. Nutritional hj screening: No deficits noted. Tuberculosis screening: No symptoms or risk factors identified. Fall Risk Fall in past 12 months (25 points). Assessment: 08:20 Reassessment: pt BP 77/63, OK=914, Dr. Fall at bedside to assist with emergent iw synchronized cardioversion. 08:30 Reassessment: BP up to 134/79, HR down to 93 after cardioversion, pt states feeling iw better. 08:40 Reassessment: wheeled to CT:. hj 09:00 Reassessment: back from CT:. hj 09:30 Reassessment: Patient and/or family updated on plan of care and expected duration. Pain hj level reassessed. Patient is alert, oriented x 3, equal unlabored respirations, skin warm/dry/pink. Patient denies pain at this time. Patient states feeling better. Patient states symptoms have improved. 10:28 Reassessment: Patient and/or family updated on plan of care and expected duration. Pain hj level reassessed. Patient is alert, oriented x 3, equal unlabored respirations, skin warm/dry/pink. awaiting EMS for transport;. 10:29 Reassessment: reports called to Loly Salinas RN;. Vital Signs: 08:25 BP 77 / 63; Pulse 173; Resp 20 S; Temp 98.0; Pulse Ox 100% on R/A; Weight 95.25 kg; iw 08:30 BP 134 / 79; Pulse 100; Resp 20 S; Pulse Ox 100% on R/A; iw 08:35 BP 113 / 86; Pulse 100; Resp 20 S; Pulse Ox 98% on R/A; iw 09:00 BP 112 / 73; Pulse 88; Resp 18; Pulse Ox 99% on R/A; hj 09:42 BP 141 / 82; Pulse 82; Resp 18; Pulse Ox 99% on R/A; hj 10:02 BP 119 / 68; Pulse 96; Resp 20; Pulse Ox 98% on R/A; hj ED Course: 08:24 Patient arrived in ED. iw 08:25 Assist provider with cardioversion (synchronized) with pads, for treatment of V tach iw with 150 joules Set up for procedure. Performed by Lincoln VILLALPANDO Monitored with environmental monitoring specialist, pulse ox, Post procedure rhythm is sinus rhythm. Patient tolerated well. 08:26 Hever Fall MD is Attending Physician. gs 08:27 Lincoln Cortes PA is PHCP. cp 08:28 Emeka Dominguez RN is Primary Nurse. hj 08:29 Arm band placed on right wrist. hj 08:29 Patient has correct armband on for positive identification. Placed in gown. Bed in low hj position. Call light in reach. Side rails up X2. 08:31 Triage completed. iw 08:36 Maintain EMS IV. Dressing intact. Good blood return noted. Site clean \T\ dry. Gauge \T\ iw site: 20 LAC. 08:38 Collections And Archives Director called and left message with answering service to please call. eb 08:38 EKG done, by security tech. reviewed by Lincoln VILLALPANDO. at1 08:39 Collections And Archives Director returned call at 08:39. eb 08:58 CT Head C Spine In Process Unspecified. EDMS 08:58 Thorax Wo Con In Process Unspecified. EDMS 08:59 X-ray completed. Patient tolerated procedure well. Patient moved to radiology via jb2 stretcher. Patient moved back from CT. Patient moved back from radiology. 09:03 XRAY Chest (1 view) In Process Unspecified. EDMS 09:33 initiated a transfer with Malika at the [facility] Transfer [place]. eb 09:38 initiated a transfer with Anaya at the [facility] transfer [place]. eb 09:40 Inserted saline lock: 22 gauge in right antecubital area, using aseptic technique. hj 09:44 connected the bench worker binding groundwater monitoring technician for [facility] with Lincoln VILLALPANDO for patient eb transfer consultation. 09:45 per Anaya at the [facility] transfer center they are at capacity in the CCU's. eb 10:04 administrative approval given by Patty Guajardo RN transfer coord / patient has been eb accepted to [facility] CCU 2 bed 16/ report to be called to [phone]/ Dr. Woodall has accepted the patient in transfer. 10:30 Patient transferred, IV remains in place. intact. hj Administered Medications: 08:30 Drug: fentaNYL (PF) 25 mcg Route: IVP; Site: left antecubital; hj 08:51 Follow up: Response: No adverse reaction; Pain is decreased hj 08:30 Drug: NS 0.9% 1000 ml Route: IV; Rate: 1 bolus; Site: left antecubital; hj 09:10 Follow up: IV Status: Order to discontinue infusion; IV Intake: 500ml hj 08:40 Drug: Xopenex (3) 1.25 mg Route: Inhalation; hj 09:13 Drug: NS 0.9% 1000 ml Route: IV; Rate: 50 ml/hr; Site: left antecubital; hj 10:31 Follow up: IV Status: Infusion continued upon transfer hj 09:40 Drug: Lidocaine Drip 1 mg/min Route: IV; Rate: calculated rate; Site: right antecubital;hj 10:00 Follow up: IV Status: Infusion continued upon transfer hj 09:40 Drug: Potassium Chloride 20 mEq Route: IV; Rate: calculated rate; Site: right hj antecubital; 10:30 Follow up: IV Status: Infusion continued upon transfer hj 09:42 Not Given (Duplicate Order; EMS gave pt Aspirin 325 mg LANGUAGE ASSISTANT:): Aspirin Chewable Tablet iw 324 mg PO once; 81 mg tablets x 4 09:45 Drug: fentaNYL (PF) 25 mcg Route: IVP; Site: left antecubital; hj Intake: 09:10 IV: 500ml; Total: 500ml. hj Outcome: 10:22 ER care complete, transfer ordered by MD. garcia 10:29 Transferred by ground EMS to [facility], Transfer form completed. hj X-rays sent w/ patient. 10:29 Condition: stable 10:29 Instructed on the need for transfer, Demonstrated understanding of instructions. 11:04 Patient left the ED. hj Signatures: Dispatcher [employer] EDMS Jaspreet GaudencioFalguni Bartlett, RN RN iw Kirstie Meza, nipping machine operator EKG Tat1 Emeka Dominguez RN RN Lincoln Maldonado PA PA cp Starr, Gregory, MD MD gs Botello, Elizabeth eb Corrections: (The following items were deleted from the chart) 09:41 08:25 BP 77 / 63; Pulse 173bpm; Resp 20bpm; Spontaneous; Pulse Ox 100% RA; iw iw 10:20 08:29 Presenting complaint: EMS states: from home, complaints of syncopal episode this hj AM,O2 on RA is on the 70's, HR- 60's- 170's on Vi Fib by EMS;20g L AC; aspirin 325 mg POgiven; hj
--- NOTE | 2019-02-10 10:24 | EDPHYS ---
Physician Documentation [facility] Name: Geovanny Moore Age: 73 yrs Sex: Male : 1945 Arrival Date: 02/10/2019 Time: 08:24 Bed 4 Private MD: ED Physician Hever Fall HPI: 02/10 08:35 This 73 yrs old Male presents to ER via EMS with complaints of Irregular cp Pulse. 08:35 The patient has experienced syncope, lost consciousness. Onset: The symptoms/episode cp began/occurred 3 day(s) ago, most recent episode this morning while sitting on edge of bed and urinating. Duration: The patient has had multiple episodes, that last an unknown period of time. Context: the episode(s) was witnessed, by family, , Just prior to the episode the patient experienced chest pain. Associated injury: Other: left foot and right arm, abrasion. Current symptoms: chest pain. Historical: - Allergies: 08: Codeine; hj - Home Meds: : aspirin 325 mg Oral TbEC once daily [Active]; benazepril 40 mg Oral tab 1 tab once hj daily [Active]; clonazepam 0.5 mg Oral tab 1 tab 3 times per day [Active]; clopidogrel 75 mg Oral tab 1 tab once daily [Active]; furosemide 40 mg Oral tab 1 tab 2 times per day [Active]; glimepiride 1 mg Oral tab 1 tab once daily [Active]; isosorbide mononitrate 60 mg Oral Tb24 1 tab once daily [Active]; losartan 100 mg Oral tab 1 tab once daily [Active]; Nitrostat 0.4 mg SL subl 1 tab [Active]; Perforomist 20 mcg/2 mL inhalation nebu 2 mL 2 times per day [Active]; potassium chloride 10 mEq Oral TbER 1 tab once daily [Active]; pravastatin 40 mg Oral tab 1 tab once daily [Active]; spironolactone 25 mg Oral tab 1 tab 2 times per day [Active]; - PMHx: 08:29 CAD; CHF; COPD; defibrilator; defibrillator; Diabetes - NIDDM; Hypertension; Myocardial hj infarction; - PSHx: defib; hj - Immunization history:: Adult Immunizations up to date. - Social history:: Smoking status: Patient uses tobacco products, Patient/guardian denies using alcohol. - Ebola Screening: : Patient negative for fever greater than or equal to 101.5 degrees Fahrenheit, and additional compatible Ebola Virus Disease symptoms Patient denies exposure to infectious person Patient denies travel to an Ebola-affected area in the 21 days before illness onset. ROS: 08:45 Constitutional: Negative for fever. cp 08:45 Cardiovascular: Positive for chest pain. 08:45 Respiratory: Positive for shortness of breath, at rest. 08:45 Unable to obtain ROS due to patient distress. Exam: 08:50 Head/Face: Normocephalic, atraumatic. cp 08:50 Constitutional: The patient appears alert, awake, non-diaphoretic, non-toxic, well developed, well nourished, in obvious distress, moderately distressed. 08:50 Eyes: Periorbital structures: appear normal, Pupils: equal, round, and reactive to light and accomodation, Extraocular movements: intact throughout, Conjunctiva: normal, no exudate, no injection, Lids and lashes: appear normal, bilaterally. 08:50 ENT: External ear(s): are unremarkable, Ear canal(s): are normal, clear, TM's: are normal, no evidence of bulging, no erythema, Nose: is normal, Mouth: Lips: moist, Oral mucosa: moist, Posterior pharynx: Airway: no evidence of obstruction, patent. 08:50 Neck: C-spine: vertebral tenderness, that is mild, crepitus, is not appreciated. 08:50 Chest/axilla: Inspection: normal, Palpation: is normal, no crepitus, no tenderness. 08:50 Cardiovascular: Rate: tachycardic, Edema: is not appreciated, JVD: is not appreciated. 08:50 Respiratory: moderate respiratory distress is noted, Respirations: labored breathing, that is moderate, shallow respirations, that is moderate, Breath sounds: decreased breath sounds, that are moderate, throughout. 08:50 Abdomen/GI: Inspection: abdomen appears normal, Palpation: abdomen is soft and non-tender, in all quadrants. 08:50 Skin: injury, abrasion(s), moderate sized abrasion noted, of the right arm. 08:50 Neuro: Orientation: to person, place \T\ time. Mentation: able to follow commands, slow to respond, Motor: moves all fours, strength is normal. Vital Signs: 08:25 BP 77 / 63; Pulse 173; Resp 20 S; Temp 98.0; Pulse Ox 100% on R/A; Weight 95.25 kg; iw 08:30 BP 134 / 79; Pulse 100; Resp 20 S; Pulse Ox 100% on R/A; iw 08:35 BP 113 / 86; Pulse 100; Resp 20 S; Pulse Ox 98% on R/A; iw 09:00 BP 112 / 73; Pulse 88; Resp 18; Pulse Ox 99% on R/A; hj 09:42 BP 141 / 82; Pulse 82; Resp 18; Pulse Ox 99% on R/A; hj 10:02 BP 119 / 68; Pulse 96; Resp 20; Pulse Ox 98% on R/A; hj Procedures: 09:00 Cardioversion: (synchronized) using pacer pads, for treatment of V tach, with 150 cp joules X 1. Post procedure rhythm is paced, regular rhythm, the patient tolerated the procedure well. MDM: 08:26 Patient medically screened. 09:55 Data reviewed: vital signs, nurses notes, lab test result(s), EKG, radiologic studies, cp CT scan, plain films, I have discussed the patient's presentation/case with the attending Emergency Department Physician;. 09:55 Test interpretation: by ED physician or midlevel provider: ECG, plain radiologic cp studies. 10:10 Physician consultation: was contacted at 10:00, regarding regarding transfer, to [facility]. patient's condition, DR Woodall, kicking machine operator \T\[facility] will accept patient as transfer. 02/10 08:30 Order name: Basic Metabolic Panel; Complete Time: 09:26 02/10 09:26 Interpretation: Normal except: K 2.8; CL 92; CO2 35; GLUC 156; BUN 47; CRE 2.63; GFR 24. 02/10 08:30 Order name: CBC with Diff; Complete Time: 09:11 02/10 09:11 Interpretation: Normal except: WBC 13.7; HGB 13.5; MCH 25.7; MCHC 31.3; RDW 16.8; NEUT cp A 9.0; MNA 1.4. 02/10 08:30 Order name: LFT's; Complete Time: 09:26 cp 02/10 09:26 Interpretation: Normal except: ALK 145; BILID 0.3; ALB 3.0; GLOB 4.5; A/G 0.7. cp 02/10 08:30 Order name: Magnesium; Complete Time: 09:26 cp 02/10 08:30 Order name: NT PRO-BNP; Complete Time: 09:26 cp 02/10 09:27 Interpretation: Abnormal: NT PRO-BNP 8692. cp 02/10 08:30 Order name: PT-INR; Complete Time: 09:11 cp 02/10 09:11 Interpretation: Abnormal: PT 24.2. cp 02/10 08:30 Order name: Troponin (emerg Dept Use Only); Complete Time: 09:11 cp 02/10 09:11 Interpretation: Abnormal: TROPED 0.31. cp 02/10 08:30 Order name: XRAY Chest (1 view); Complete Time: 09:26 cp 02/10 08:35 Order name: CT Head C Spine; Complete Time: 09:26 cp 02/10 08:54 Order name: Thorax Wo Con; Complete Time: 09:46 EDMS 02/10 08:30 Order name: EKG; Complete Time: 08:32 cp 02/10 08:30 Order name: Cardiac monitoring; Complete Time: 08:40 cp 02/10 08:30 Order name: EKG - Nurse/Tech; Complete Time: 08:40 cp 02/10 08:30 Order name: IV Saline Lock; Complete Time: 08:40 cp 02/10 08:30 Order name: Labs collected and sent; Complete Time: 08:51 cp 02/10 08:30 Order name: O2 Per Protocol; Complete Time: 08:40 cp 02/10 08:30 Order name: O2 Sat Monitoring; Complete Time: 08:41 cp 02/10 08:40 Order name: EKG Electrocardiogram EDMS 02/10 08:40 Order name: EKG Electrocardiogram EDMS Administered Medications: 08:30 Drug: fentaNYL (PF) 25 mcg Route: IVP; Site: left antecubital; hj 08:51 Follow up: Response: No adverse reaction; Pain is decreased hj 08:30 Drug: NS 0.9% 1000 ml Route: IV; Rate: 1 bolus; Site: left antecubital; hj 09:10 Follow up: IV Status: Order to discontinue infusion; IV Intake: 500ml 08:40 Drug: Xopenex (3) 1.25 mg Route: Inhalation; hj 09:13 Drug: NS 0.9% 1000 ml Route: IV; Rate: 50 ml/hr; Site: left antecubital; hj 10:31 Follow up: IV Status: Infusion continued upon transfer hj 09:40 Drug: Lidocaine Drip 1 mg/min Route: IV; Rate: calculated rate; Site: right antecubital;hj 10:00 Follow up: IV Status: Infusion continued upon transfer hj 09:40 Drug: Potassium Chloride 20 mEq Route: IV; Rate: calculated rate; Site: right hj antecubital; 10:30 Follow up: IV Status: Infusion continued upon transfer hj 09:42 Not Given (Duplicate Order; EMS gave pt Aspirin 325 mg CREATIVE SERVICES INTERN:): Aspirin Chewable Tablet iw 324 mg PO once; 81 mg tablets x 4 09:45 Drug: fentaNYL (PF) 25 mcg Route: IVP; Site: left antecubital; Disposition: 11:10 Chart complete. cp 16:49 Co-signature as Attending Physician, Hever Fall MD. Disposition: 02/10/19 10:[address] [facility]. Diagnosis are Ventricular tachycardia - cardioverted, Hypokalemia, Chest pain, unspecified. - Reason for transfer: Higher level of care. - Accepting physician is DR Kit Woodall. - Condition is Stable. - Problem is new. - Symptoms have improved. Critical care time excluding procedures: 11:10 Critical care time: Bedside Care: 10 minutes, Consultation: 25 minutes, Family cp Intervention: 5 minutes. Total time: 40 minutes Signatures: Dispatcher [employer] EDNV Emeka Dominguez RN RN hj Page, Corey, PA PA cp Starr, Gregory, MD MD Falguni Damon RN Corrections: (The following items were deleted from the chart) 08:40 08:39 UA MICROSCOPIC+U.LAB.BRZ ordered. EDNV EDNV 09:11 09:11 Normal except: WBC 13.7; HGB 13.5; MCH 25.7; MCHC 31.3; RDW 16.8; NEUT A 9.0. cp cp 11:04 10:22 02/10/2019 10:[address] [facility]. Diagnosis is hj Ventricular tachycardia - cardioverted; Hypokalemia; Chest pain, unspecified. Reason for transfer: Higher level of care. Accepting physician is DR Kit Woodall. Condition is Stable. Problem is new. Symptoms have improved. cp 23:15 09:00 Cardioversion: (synchronized) using pacer pads, cp cp
[2019-02-10 11:32] VITALS: TEMP 98
[2019-02-10 11:38] VITALS: BP 119/68; O2SAT 98
--- NOTE | 2019-02-10 13:23 | EKG ---
Test Date: 2019-02-10 Test Time: 08:33:56 Net Developer Programmer: ANDREA MEASUREMENT RESULTS: Intervals: Rate: 98 WI: 100 QRSD: 170 QT: 422 QTc: 538 [place]: P: WI: 100 QRS: 261 T: 95 INTERPRETIVE STATEMENTS: Electronic ventricular pacemaker Compared to ECG 02/10/2019 08:26:15 No significant changes Electronically Signed On 02-10-19 13:22:24 CDT by Sean Plummer
--- NOTE | 2019-02-10 13:23 | EKG ---
Test Date: 2019-02-10 Test Time: 08:26:15 Plumbing And Heating Mechanic: HUE MEASUREMENT RESULTS: Intervals: Rate: 108 HI: 88 QRSD: 206 QT: 448 QTc: 600 [place]: P: 86 HI: 88 QRS: 232 T: 84 INTERPRETIVE STATEMENTS: Electronic ventricular pacemaker Compared to ECG 01/23/2019 10:33:33 No significant changes Electronically Signed On 02-10-19 13:22:25 CDT by Sean Plummer
--- NOTE | 2019-02-10 13:23 | EKG ---
Test Date: 2019-02-10 Test Time: 08:35:05 Chief Scientific Officer: ANDREA MEASUREMENT RESULTS: Intervals: Rate: 97 NH: 98 QRSD: 172 QT: 428 QTc: 543 [place]: P: 75 NH: 98 QRS: 268 T: 95 INTERPRETIVE STATEMENTS: Electronic ventricular pacemaker Compared to ECG 02/10/2019 08:33:56 No significant changes Electronically Signed On 02-10-19 13:22:22 CDT by Sean Plummer
== END 2019-02-10 11:04 | disposition short-term general hospital (02) ==
LOC: ER 08:19
DX: I47.2 Ventricular tachycardia (principal); E87.6 Hypokalemia; I10 Essential (primary) hypertension; E11.9 Type 2 diabetes mellitus without complications; I50.9 Heart failure, unspecified; J44.9 Chronic obstructive pulmonary disease, unspecified; Z88.5 Allergy status to narcotic agent; Z79.82 Long term (current) use of aspirin; Z95.810 Presence of automatic (implantable) cardiac defibrillator
CPT/HCPCS: 92960; 96365; 96361; 96368; 93005 ×3; 85025; 80048; 36415; 83735; 85610; 80076; 84484; 83880; 70450; 71250; 72125; 71045; 96375; 99291; 99292; J3010; J7030; J2001

== ENCOUNTER 2019-05-12 04:05 | Inpatient (IN) | payer OTHER ==
[2019-05-12] MEDS ORDERED: NA CHLORIDE 0.9% 1,000 ML ONE (04:40)
--- NOTE | 2019-05-12 04:42 | ER ---
Nurse's Notes [facility] Name: Geovanny Moore Age: 73 yrs Sex: Male : 1945 Arrival Date: 05/12/2019 Time: 04:07 Bed 5 Private MD: Diagnosis: Altered mental status, unspecified;Weakness;Hypokalemia;Hypoglycemia, unspecified;Type 2 diabetes mellitus;Hypomagnesemia Presentation: 05/12 04:11 Presenting complaint: EMS states: PT CALLED BECAUSE HE WAS ACTING OFF TODAY, BUT ch ROLLED OUT OF THE BED AND THEN COULDN'T GET HIM UP OFF THE FLOOR. PT WAS ORIENTED TO PERSON ONLY ON SCENE, GAVE INAPPROPRIATE ANSWERS TO QUESTIONS. Transition of care: patient was not received from another setting of care. Onset of symptoms was May 11, 2019. Risk Assessment: Do you want to hurt yourself or someone else?. Risk Assessment: Do you want to hurt yourself or someone else? Unable to obtain. Initial Sepsis Screen: Does the patient meet any 2 criteria? No. Patient's initial sepsis screen is negative. Does the patient have a suspected source of infection? No. Patient's initial sepsis screen is negative. Care prior to arrival: IV initiated. 20 GA, in the left forearm, Glucose check: 79 Oxygen administered. via nasal cannula. 04:11 Method Of Arrival: EMS: [facility] 04:11 Acuity: KIARA 3 ch Triage Assessment: 04:15 General: Appears in no apparent distress. comfortable, Behavior is drowsy, quiet, ch uncooperative. Pain: Denies pain. Neuro: Level of Consciousness is awake, confused, lethargic, Oriented to person, Recruiter are weak bilaterally Weakness PT WONT FOLLOW COMMANDS WELL. . Speech is normal, Facial symmetry appears normal, Facial symmetry: tongue is midline, Pupils are sluggish. Cardiovascular: Heart tones present Capillary refill < 3 seconds in bilateral fingers toes Clubbing of nail beds is present JVD is absent Edema is 2+ to left midcalf, left ankle, left foot, right midcalf, right ankle and right foot pitting to left midcalf, left ankle, left foot, right midcalf, right ankle and right foot Rhythm is ventricular pacer. Respiratory: Airway is patent Respiratory effort is even, unlabored, Breath sounds with wheezes bilaterally. GI: No signs and/or symptoms were reported involving the gastrointestinal system. : No signs and/or symptoms were reported regarding the genitourinary system. Derm: Skin is pink, warm \T\ dry. Historical: - Allergies: 04:15 Codeine; ch - Home Meds: 04:15 aspirin 325 mg Oral TbEC once daily [Active]; benazepril 40 mg Oral tab 1 tab once ch daily [Active]; clonazepam 0.5 mg Oral tab 1 tab 3 times per day [Active]; clopidogrel 75 mg Oral tab 1 tab once daily [Active]; furosemide 40 mg Oral tab 1 tab 2 times per day [Active]; glimepiride 1 mg Oral tab 1 tab once daily [Active]; isosorbide mononitrate 60 mg Oral Tb24 1 tab once daily [Active]; losartan 100 mg Oral tab 1 tab once daily [Active]; Nitrostat 0.4 mg SL subl 1 tab [Active]; Perforomist 20 mcg/2 mL inhalation nebu 2 mL 2 times per day [Active]; potassium chloride 10 mEq Oral TbER 1 tab once daily [Active]; pravastatin 40 mg Oral tab 1 tab once daily [Active]; spironolactone 25 mg Oral tab 1 tab 2 times per day [Active]; - PMHx: 04:15 CAD; CHF; COPD; defibrilator; Diabetes - NIDDM; Hypertension; Myocardial infarction; ch VENTRICULAR PACE; - PSHx: 04:15 defib; ch - Immunization history:: Adult Immunizations unknown. - Social history:: Smoking status: Patient uses tobacco products, smokes one pack cigarettes per day. - Ebola Screening: : Patient negative for fever greater than or equal to 101.5 degrees Fahrenheit, and additional compatible Ebola Virus Disease symptoms Patient denies exposure to infectious person Patient denies travel to an Ebola-affected area in the 21 days before illness onset No symptoms or risks identified at this time. - Family history:: not pertinent. Screenin:18 Abuse screen: Denies threats or abuse. Denies injuries from another. Nutritional ch screening: No deficits noted. Tuberculosis screening: No symptoms or risk factors identified. Fall Risk Fall in past 12 months (25 points). Secondary diagnosis (15 points) IV access (20 points). Ambulatory Aid- None/Bed Rest/Nurse Assist (0 pts). Gait- Impaired (20 pts.). Mental Status- Overestimates/Forgets Limitations (15 pts.). Total Hoang Fall Scale indicates High Risk Score (45 or more points). Fall prevention measures have been instituted. Side Rails Up X 2 Placed Close to Nursing Station Frequent Obs/Assessments Occuring As available patient and family educated on Fall Prevention Program and Strategies. Assessment: 04:18 Reassessment: Patient appears in no apparent distress at this time. No changes from previously documented assessment. Patient and/or family updated on plan of care and expected duration. Pain level reassessed. 05:50 Reassessment: Patient and/or family updated on plan of care and expected duration. Pain ea level reassessed. Pt alert and oriented to self. Respirations even and unlabored. Chest expansions even and symmetrical. No s/s of pain or discomfort noted at this time. 06:55 Reassessment: Patient and/or family updated on plan of care and expected duration. Pain ea level reassessed. Pt resting with eyes closed, respirations even and unlabored. Chest expansions even and symmetrical. 07:30 Reassessment: Nurse to call back for report. sv Vital Signs: 04:15 BP 118 / 54; Pulse 60; Resp 22; Temp 99.2(TE); Pulse Ox 100% on 2 lpm NC; Pain 0/10; ch 04:30 BP 131 / 64; Pulse 60; Resp 18; Pulse Ox 95% ; ea 07:35 BP 112 / 62; Pulse 58; Resp 18; Pulse Ox 99% ; sv ED Course: 04:07 Patient arrived in ED. ds1 04:08 Lincoln Flores MD is Attending Physician. adriana 04:13 Triage completed. ch 04:15 Arm band placed on left wrist. Patient placed in an exam room, on a stretcher, on test car driver, on pulse oximetry. 04:18 No apparent distress. Resting quietly. ch 04:18 Patient has correct armband on for positive identification. Placed in gown. Bed in low ch position. Call light in reach. Side rails up X2. manpower development specialist on. Pulse ox on. NIBP on. Warm blanket given. 04:18 No provider procedures requiring assistance completed. Maintain EMS IV. Dressing ch intact. Good blood return noted. Site clean \T\ dry. Gauge \T\ site: 20 LAC. 04:27 Meaghan Flowers, ROSAURA is Primary Nurse. ea 04:39 Luis Eduardo Knott MD is Hospitalizing Provider. adriana 05:02 CT Head Brain wo Cont In Process Unspecified. EDMS 07:02 Patient admitted, IV remains in place. ea Administered Medications: 05:23 Drug: NS 0.9% 1000 ml Route: IV; Rate: 125 ml/hr; Site: left antecubital; ea 06:39 Follow up: IV Status: Infusion continued upon admission ea 06:01 Drug: D50W 50 ml Route: IVP; Site: left antecubital; ea 06:39 Follow up: Response: No adverse reaction ea 06:10 Drug: Potassium Effervescent Tablet 50 mEq Route: PO; ea 06:37 Follow up: Response: No adverse reaction ea 06:10 Drug: Potassium Chloride 20 mEq Route: IV; Rate: per protocol; Site: left antecubital; ea 06:37 Follow up: IV Status: Infusion continued upon admission ea 08:00 Follow up: Response: No adverse reaction; IV Status: Completed infusion sg 06:20 Drug: NS 0.9% with KCl 20 mEq/L 1000 ml Route: IV; Rate: 100 ml/hr; Site: left ea antecubital; 06:38 Follow up: Response: No adverse reaction; IV Status: Infusion continued upon admission ea 06:37 Drug: Magnesium Sulfate 1 grams Route: IVPB; Infused Over: 1 hrs; Site: left ea antecubital; 07:34 Follow up: Response: No adverse reaction; IV Status: Completed infusion sg Point of Care Testing: Blood Glucose: 07:35 Blood Glucose: 93 mg/dL; sv Ranges: Outcome: 04:41 Decision to Hospitalize by Provider. adriana 07:02 Instructed on the need for admit, Demonstrated understanding of instructions. ea 07:42 Admitted to Tele accompanied by tech, family with patient, via stretcher, room 213, sv with oxygen, with chart, Report called to Emmy KAPLAN 07:42 Condition: stable 07:54 Patient left the ED. sg Signatures: Dispatcher [employer] EDHiral Stone, Heidy Kirby RN, ch, RN RN sv Gay, Steven, RN RN sg Anderson, Corey, MD MD cha Sanford, Demi ds1 Meaghan Flowers RN RN ea Corrections: (The following items were deleted from the chart) 07:35 06:38 IV Status: Infusion continued upon admission ea sg
--- NOTE | 2019-05-12 04:42 | EDPHYS ---
Physician Documentation [facility] Name: Geovanny Moore Age: 73 yrs Sex: Male : 1945 Arrival Date: 05/12/2019 Time: 04:07 Bed 5 Private MD: ED Physician Lincoln Flores HPI: 05/12 04:35 This 73 yrs old Male presents to ER via EMS with complaints of ams. adriana 04:35 ams, possible meds. The patient presents with confusion, trouble concentrating. Onset: adriana The symptoms/episode began/occurred just prior to arrival. Possible causes: unknown. Associated signs and symptoms: Pertinent positives: confusion. Current symptoms: In the emergency department the patient's symptoms have improved, mildly. Patient's baseline: Neuro: alert and fully oriented. Historical: - Allergies: 04:15 Codeine; ch - Home Meds: 04:15 aspirin 325 mg Oral TbEC once daily [Active]; benazepril 40 mg Oral tab 1 tab once ch daily [Active]; clonazepam 0.5 mg Oral tab 1 tab 3 times per day [Active]; clopidogrel 75 mg Oral tab 1 tab once daily [Active]; furosemide 40 mg Oral tab 1 tab 2 times per day [Active]; glimepiride 1 mg Oral tab 1 tab once daily [Active]; isosorbide mononitrate 60 mg Oral Tb24 1 tab once daily [Active]; losartan 100 mg Oral tab 1 tab once daily [Active]; Nitrostat 0.4 mg SL subl 1 tab [Active]; Perforomist 20 mcg/2 mL inhalation nebu 2 mL 2 times per day [Active]; potassium chloride 10 mEq Oral TbER 1 tab once daily [Active]; pravastatin 40 mg Oral tab 1 tab once daily [Active]; spironolactone 25 mg Oral tab 1 tab 2 times per day [Active]; - PMHx: 04:15 CAD; CHF; COPD; defibrilator; Diabetes - NIDDM; Hypertension; Myocardial infarction; ch VENTRICULAR PACE; - PSHx: 04:15 defib; ch - Immunization history:: Adult Immunizations unknown. - Social history:: Smoking status: Patient uses tobacco products, smokes one pack cigarettes per day. - Ebola Screening: : Patient negative for fever greater than or equal to 101.5 degrees Fahrenheit, and additional compatible Ebola Virus Disease symptoms Patient denies exposure to infectious person Patient denies travel to an Ebola-affected area in the 21 days before illness onset No symptoms or risks identified at this time. - Family history:: not pertinent. ROS: 04:35 Constitutional: Negative for fever, chills, and weight loss, Eyes: Negative for injury, adriana pain, redness, and discharge, ENT: Negative for injury, pain, and discharge, Neck: Negative for injury, pain, and swelling, Cardiovascular: Negative for chest pain, palpitations, and edema, Respiratory: Negative for shortness of breath, cough, wheezing, and pleuritic chest pain, Abdomen/GI: Negative for abdominal pain, nausea, vomiting, diarrhea, and constipation, Back: Negative for injury and pain, : Negative for injury, bleeding, discharge, and swelling, MS/Extremity: Negative for injury and deformity, Skin: Negative for injury, rash, and discoloration, Psych: Negative for depression, anxiety, suicide ideation, homicidal ideation, and hallucinations, Allergy/Immunology: Negative for hives, rash, and allergies, Endocrine: Negative for neck swelling, polydipsia, polyuria, polyphagia, and marked weight changes, Hematologic/Lymphatic: Negative for swollen nodes, abnormal bleeding, and unusual bruising. 04:35 Neuro: Positive for altered mental status, weakness. Exam: 04:35 Constitutional: This is a well developed, well nourished patient who is awake, alert, adriana and in no acute distress. Head/Face: Normocephalic, atraumatic. Eyes: Pupils equal round and reactive to light, extra-ocular motions intact. Lids and lashes normal. Conjunctiva and sclera are non-icteric and not injected. Cornea within normal limits. Periorbital areas with no swelling, redness, or edema. ENT: Nares patent. No nasal discharge, no septal abnormalities noted. Tympanic membranes are normal and external auditory canals are clear. Oropharynx with no redness, swelling, or masses, exudates, or evidence of obstruction, uvula midline. Mucous membranes moist. Neck: Trachea midline, no thyromegaly or masses palpated, and no cervical lymphadenopathy. Supple, full range of motion without nuchal rigidity, or vertebral point tenderness. No Meningismus. Chest/axilla: Normal chest wall appearance and motion. Nontender with no deformity. No lesions are appreciated. Cardiovascular: Regular rate and rhythm with a normal S1 and S2. No gallops, murmurs, or rubs. Normal PMI, no JVD. No pulse deficits. Respiratory: Lungs have equal breath sounds bilaterally, clear to auscultation and percussion. No rales, rhonchi or wheezes noted. No increased work of breathing, no retractions or nasal flaring. Abdomen/GI: Soft, non-tender, with normal bowel sounds. No distension or tympany. No guarding or rebound. No evidence of tenderness throughout. Back: No spinal tenderness. No costovertebral tenderness. Full range of motion. Male : Normal genitalia with no discharge or lesions. Skin: Warm, dry with normal turgor. Normal color with no rashes, no lesions, and no evidence of cellulitis. MS/ Extremity: Pulses equal, no cyanosis. Neurovascular intact. Full, normal range of motion. Neuro: Awake and alert, GCS 15, oriented to person, place, time, and situation. Cranial nerves II-XII grossly intact. Motor strength 5/5 in all extremities. Sensory grossly intact. Cerebellar exam normal. Normal gait. Psych: Awake, alert, with orientation to person, place and time. Behavior, mood, and affect are within normal limits. Vital Signs: 04:15 BP 118 / 54; Pulse 60; Resp 22; Temp 99.2(TE); Pulse Ox 100% on 2 lpm NC; Pain 0/10; ch 04:30 BP 131 / 64; Pulse 60; Resp 18; Pulse Ox 95% ; ea 07:35 BP 112 / 62; Pulse 58; Resp 18; Pulse Ox 99% ; sv MDM: 04:09 Patient medically screened. [facility] 04:37 Data reviewed: vital signs, nurses notes, lab test result(s), EKG, radiologic studies, [facility] CT scan, plain films. 05/12 04:34 Order name: Basic Metabolic Panel; Complete Time: 06:13 [facility] 05/12 04:34 Order name: CBC with Diff; Complete Time: 06:13 [facility] 05/12 04:34 Order name: LFT's; Complete Time: 06:13 [facility] 05/12 04:34 Order name: Magnesium; Complete Time: 06:13 [facility] 05/12 04:34 Order name: NT PRO-BNP; Complete Time: 06:13 [facility] 05/12 04:34 Order name: PT-INR; Complete Time: 06:13 [facility] 05/12 04:34 Order name: Troponin (emerg Dept Use Only); Complete Time: 06:13 [facility] 05/12 04:34 Order name: XRAY Chest (1 view) [facility] 05/12 04:34 Order name: Lipase; Complete Time: 06:13 [facility] 05/12 04:34 Order name: Urine Culture [facility] 05/12 04:34 Order name: AMMONIA [facility] 05/12 06:41 Order name: Urine Dipstick--Ancillary (enter results) 05/12 07:00 Order name: Urine Dipstick-Ancillary EDTX 05/12 07:37 Order name: Glucose, Ancillary Testing EDTX 05/12 04:34 Order name: EKG; Complete Time: 04:36 [facility] 05/12 04:34 Order name: Cardiac monitoring; Complete Time: 05:23 [facility] 05/12 04:34 Order name: EKG - Nurse/Tech; Complete Time: 05:23 [facility] 05/12 04:34 Order name: IV Saline Lock; Complete Time: 05:23 [facility] 05/12 04:34 Order name: Labs collected and sent; Complete Time: 05:23 [facility] 05/12 04:34 Order name: O2 Per Protocol; Complete Time: 05:23 [facility] 05/12 04:34 Order name: O2 Sat Monitoring; Complete Time: 05:23 [facility] 05/12 04:34 Order name: Urine Dipstick-Ancillary (obtain specimen); Complete Time: 06:37 [facility] 05/12 04:34 Order name: CT Head Brain wo Cont [facility] 05/12 04:46 Order name: CONS Physician Consult EDTX Administered Medications: 05:23 Drug: NS 0.9% 1000 ml Route: IV; Rate: 125 ml/hr; Site: left antecubital; ea 06:39 Follow up: IV Status: Infusion continued upon admission ea 06:01 Drug: D50W 50 ml Route: IVP; Site: left antecubital; ea 06:39 Follow up: Response: No adverse reaction ea 06:10 Drug: Potassium Effervescent Tablet 50 mEq Route: PO; ea 06:37 Follow up: Response: No adverse reaction ea 06:10 Drug: Potassium Chloride 20 mEq Route: IV; Rate: per protocol; Site: left antecubital; ea 06:37 Follow up: IV Status: Infusion continued upon admission ea 08:00 Follow up: Response: No adverse reaction; IV Status: Completed infusion sg 06:20 Drug: NS 0.9% with KCl 20 mEq/L 1000 ml Route: IV; Rate: 100 ml/hr; [facility]; 06:38 Follow up: Response: No adverse reaction; IV Status: Infusion continued upon admission ea 06:37 Drug: Magnesium Sulfate 1 grams Route: IVPB; Infused Over: 1 hrs; Site: left antecubital; 07:34 Follow up: Response: No adverse reaction; IV Status: Completed infusion sg Point of Care Testing: Blood Glucose: 07:35 Blood Glucose: 93 mg/dL; sv Ranges: Critical Glucose Levels:Adult <50 mg/dl or >400 mg/dl <40 mg/dl or >180 mg/dl Disposition: 05/12/19 04:41 Hospitalization ordered by Luis Eduardo Knott for Inpatient Admission. Preliminary diagnosis are Altered mental status, unspecified, Weakness, Hypokalemia, Hypoglycemia, unspecified, Type 2 diabetes mellitus, Hypomagnesemia. - Bed requested for Telemetry/MedSurg (Inpatient). - Status is Inpatient Admission. sg - Condition is Stable. - Problem is new. - Symptoms have improved. UTI on Admission? No Signatures: Dispatcher [employer] EDHiral Stone RN RN ch Webb, Martha, RN RN mw Gay, Steven, RN RN sg Anderson, Corey, MD MD cha Antunez, Elena, RN RN ea Corrections: (The following items were deleted from the chart) 05:50 04:41 Hospitalization Ordered by Luis Eduardo Knott MD for Inpatient Admission. Preliminary adriana diagnosis is Altered mental status, unspecified; Weakness. Bed requested for Telemetry/MedSurg (Inpatient). Status is Inpatient Admission. Condition is Stable. Problem is new. Symptoms have improved. UTI on Admission? No. adriana 05:51 05:50 05/12/2019 04:41 Hospitalization Ordered by Luis Eduardo Knott MD for Inpatient Admission. Preliminary diagnosis is Altered mental status, unspecified; Weakness; Hypokalemia; Hypoglycemia, unspecified; Type 2 diabetes mellitus. Bed requested for Telemetry/MedSurg (Inpatient). Status is Inpatient Admission. Condition is Stable. Problem is new. Symptoms have improved. UTI on Admission? No. adriana 06:16 05:51 05/12/2019 04:41 Hospitalization Ordered by Luis Eduardo Knott MD for Inpatient adriana Admission. Preliminary diagnosis is Altered mental status, unspecified; Weakness; Hypokalemia; Hypoglycemia, unspecified; Type 2 diabetes mellitus. Bed requested for Telemetry/MedSurg (Inpatient). Status is Inpatient Admission. Condition is Stable. Problem is new. Symptoms have improved. UTI on Admission? No. mw 07:54 06:16 05/12/2019 04:41 Hospitalization Ordered by Luis Eduardo Knott MD for Inpatient sg Admission. Preliminary diagnosis is Altered mental status, unspecified; Weakness; Hypokalemia; Hypoglycemia, unspecified; Type 2 diabetes mellitus; Hypomagnesemia. Bed requested for Telemetry/MedSurg (Inpatient). Status is Inpatient Admission. Condition is Stable. Problem is new. Symptoms have improved. UTI on Admission? No. adriana
[2019-05-12 05:27] LABS: Absolute Lymphocytes (CBC) 0.8 K/uL (0.7-4.9); Basophils % 0.8 % (0-1.3); Hematocrit 34.3 % (39.6-49.0); Lymphocytes % 6.4 % (15.3-44.8); MPV 9.5 fL (7.6-11.3); RBC Red Blood Cell Count 4.36 M/uL (4.33-5.43)
[2019-05-12 05:46] LABS: Albumin 2.8 g/dL (3.4-5.0); Bilirubin Direct 0.2 mg/dL (0-0.2); Bilirubin Total 0.3 mg/dL (0.2-1.0); Magnesium 1.6 mg/dL (1.8-2.4); Protein, Total 7.5 g/dL (6.4-8.2); Troponin (Emerg Dept Use Only) 0.13 ng/mL (0.0-0.045)
[2019-05-12 05:49] LABS: Potassium 2.6 mmol/L (3.5-5.1)
[2019-05-12] MEDS ORDERED: D50W 25 GM/50 ML SYRINGE IV ONE (06:00)
[2019-05-12] MEDS ORDERED: NS KCL 20MEQ 1,000 ML IV ONE (06:06)
[2019-05-12] MEDS ORDERED: POTASSIUM 25 MEQ EFFERV TAB ONE (06:06)
[2019-05-12] MEDS ORDERED: KCL 20 MEQ/100 mL IVPB 20 MEQ/100 ML BAG IV ONE (06:07)
[2019-05-12] MEDS ORDERED: MAGNESIUM SULFATE 1 gm IVPB 1 GM/100 ML BAG IV ONE (06:28)
[2019-05-12 06:59] LABS: Urine Blood NEGATIVE (NEG); Urine Glucose NEGATIVE (NEG); Urine Protein NEGATIVE (NEG)
--- NOTE | 2019-05-12 07:58 | RAD REPORT ---
EXAM DESCRIPTION: [place] Single View05/12/2019 5:37 am CLINICAL HISTORY: Chest pain COMPARISON: January 2019 FINDINGS: Mild bilateral pulmonary opacities The heart is mildly to moderately enlarged. Pacemaker leads are in place. IMPRESSION: CHF
[2019-05-12] MEDS ORDERED: ONDANSETRON 4 MG/2 ML VIAL IV PRN (08:01)
[2019-05-12] MEDS ORDERED: ACETAMINOPHEN 500 MG TAB PO PRN (08:01)
[2019-05-12] MEDS: D5.45NS W/KCL 20MEQ 20 MEQ/1,000 ML BAG IV SCH ×2 (08:01→18:01)
--- NOTE | 2019-05-12 08:35 | EKG ---
Test Date: 2019-05-12 Test Time: 05:15:46 Mover Helper: MICHAEL MEASUREMENT RESULTS: Intervals: Rate: 60 AL: QRSD: 226 QT: 538 QTc: 538 [place]: P: AL: QRS: -80 T: 123 INTERPRETIVE STATEMENTS: Atrial-Ventricular Dual-Paced rhythmAbnormal ECG Compared to ECG 02/10/2019 08:35:05 No significant changes Electronically Signed On 05-12-19 08:35:24 CDT by Willy Morel
[2019-05-12] MEDS: MAGNESIUM OXIDE 400 MG TAB PO SCH ×2 (09:00→21:06)
[2019-05-12 09:17] VITALS: BMI 25.3
[2019-05-12 10:04] LABS: Troponin I 0.13 ng/mL (0.0-0.045)
[2019-05-12] MEDS: ASPIRIN EC 81 MG TAB PO SCH (10:14)
[2019-05-12] MEDS ORDERED: INFLUENZA VACCINE (for 3y+) 0.5 ML DOSE IMVAC ONE (11:00)
[2019-05-12] MEDS ORDERED: NITROGLYCERIN 0.4 MG/TAB SL PRN (12:36)
[2019-05-12] MEDS ORDERED: GLUCAGON 1 MG/VIAL IM PRN (12:45)
[2019-05-12] MEDS ORDERED: D50W 25 GM/50 ML SYRINGE IV PRN (12:45)
[2019-05-12] MEDS ORDERED: CEPHALEXIN 500 MG CAP PO SCH (14:00)
--- NOTE | 2019-05-12 14:06 | RAD REPORT ---
EXAM DESCRIPTION: CT - Head Brain Wo Cont - 05/12/2019 5:58 am CLINICAL HISTORY: The patient is 73 years old and is Male; DIZZINESS TECHNIQUE: Axial computed tomography images of the head/brain without intravenous contrast. Sagitt al and coronal reformatted images were created and reviewed. This CT exam was performed using one o r more of the following dose reduction techniques: automated exposure control, adjustment of the mA and/or kV according to patient size, and/or use of iterative reconstruction technique. COMPARISON: No relevant prior studies available. FINDINGS: BRAIN: There is diffuse cerebral atrophy present, consistent with this patient's age. There is patchy hypoattenuation of the deep white matter which is non-specific, but most likely owing to chronic small vessel ischemic change in a patient of this age group. Multiple foci of encephalo malacia within the left frontoparietal white matter extending along the periventricular region into t he basal ganglia region is noted. This is overall unchanged from prior exam. Subtle area of low atten uation along the medial left occipital lobe is also noted suggesting prior insult. VENTRICLES: Unremarkable. No ventriculomegaly. BONES/JOINTS: No acute fracture. SOFT TISSUES: Unremarkable. SINUSES: Unremarkable as visualized. No acute sinusitis. MASTOID AIR CELLS: Unremarkable as visualized. No mastoid effusion. ORBITS: Unremarkable as visualized. IMPRESSION: No acute intracranial findings. Chronic findings as detailed above. Electronically signed by: Julia Godinez MD 05/12/2019 5:49 AM CDT Due to temporary technical issues with the PACS/Fluency reporting system, reports are being signed by the in house radiologist as a courtesy to ensure prompt reporting. The interpreting radiologist is f ully responsible for the content of the report.
[2019-05-12] MEDS: GABAPENTIN 300 MG CAP PO SCH ×2 (14:15→21:05)
[2019-05-12] MEDS: INSULIN -REGULAR HUMAN 50 UNIT/0.5 ML ML SQ SCH ×2 (15:53→21:00)
[2019-05-12] MEDS ORDERED: CEFTRIAXONE/SWI 1gm 1 GM/10 ML SYR IVP SCH (18:00)
[2019-05-12] MEDS: ACETAMINOPHEN 500 MG TAB PO PRN (18:33)
--- NOTE | 2019-05-12 18:49 | RAD REPORT ---
EXAM DESCRIPTION: RAD - Foot Right 2 View - 05/12/2019 6:23 pm CLINICAL HISTORY: Foot pain, soft tissue wound COMPARISON: May 11 FINDINGS: No fracture, dislocation or periosteal reaction. No acute or destructive bone process. No air or foreign body in the soft tissues. IMPRESSION: No new or progressive bone or soft tissue finding.
[2019-05-12] MEDS ORDERED: ACETAMINOPHEN 500 MG TAB PO SCH (21:00)
--- NOTE | 2019-05-12 21:00 | CON ---
Reason For Consultation: History of CAD and pacemaker. Reason For Hospitalization: Altered mental status. History Of Present Illness: Mr. Moore is a gentleman, when he was first awake this morning, was confu sed, disoriented. He was found to have low blood sugar, also a low potassium level. He feels back t o normal now. His troponins are 0.13. Serial troponins are exactly the same. This is consistent wi th what we know about Mr. Moore. He has diffuse CAD, inoperable CAD, almost all is when we measured h is troponins, they are up like this. He is not having chest pain, so I do not consider this an acute coronary syndrome. He has chronic renal insufficiency. Creatinine is 2.59 today, internal proBNP i s 10,857. This is consistent with old numbers. Medications: Outpatient medications are Plavix, glimepiride, gabapentin, furosemide, nitroglycerin, isosorbide, duloxetine, cephalexin, apixaban, amiodarone, metoprolol, potassium, pravastatin, and met olazone. Physical Examination: General: He is alert, oriented, not in distress. Lungs: Clear. Cardiac: There is no significant abnormality on cardiac exam. Neck: Carotid bruits are not heard. Diagnostic Data: His electrocardiogram shows AV sequential pacing. There is no way to evaluate him for infarction, injury, or ischemia. Impression: The patient is doing well with resolution of hypoglycemia and hypokalemia. I believe he could be discharged home tomorrow. AMBER/KAYLYNN Voice ID: [id number] Report ID: [id number]
[2019-05-12] MEDS: CEFTRIAXONE/SWI 1gm 1 GM/10 ML SYR IVP SCH (21:05)
[2019-05-12] MEDS: CEPHALEXIN 500 MG CAP PO SCH (21:05)
[2019-05-12] MEDS: APIXABAN 5 MG TABLET PO SCH (21:06)
[2019-05-12] MEDS: AMIODARONE HCL 200 MG TAB PO SCH (21:06)
--- NOTE | 2019-05-12 23:15 | HP ---
Date of Admission: 05/12/2019 History Of Present Illness: 73-year-old male with multiple medical problems including diabetes and c oronary artery disease and systolic congestive heart failure chronic. He had an ulcer, which looked infected on the dorsum of his right foot. I saw him 2 days ago, started him on Keflex for that and w as in the workup to see for osteomyelitis; however, the patient yesterday was noted by the family to be not in his right state of mind and like have mild altered mental status. He was brought to the em ergency room. The patient was found in the emergency room to have an elevated troponin and also deniz estive heart failure exacerbation with high BNP and he was admitted also for that. Review of Systems: Cardiovascular: No complaints. Respiratory: No complaints. Genitourinary: No complaints. Skeletomuscular: Right foot pain. Neurological: No complaints. Gastrointestinal: No complaints. Genitourinary: No complaints. Past Medical History: 1.Coronary artery disease. He had myocardial infarction in the past. 2.Type 2 diabetes mellitus. 3.Chronic renal insufficiency from diabetes. 4.Systolic congestive heart failure. 5.Essential hypertension. 6.COPD. 7.Gastroesophageal reflux disease. 8.Hyperlipidemia. 9.Patient has had pacemaker placed in the past. Social History: Stopped smoking. Denies alcohol abuse or drug abuse history. Family History: Noncontributing. Medications: Symbicort 2 puffs daily, gabapentin 300 mg t.i.d., glimepiride 1 mg p.o. daily, Plavix 75 mg p.o. daily, duloxetine 30 mg p.o. daily, tramadol 50 mg p.o. b.i.d. p.r.n., pravastatin 40 mg p .o. daily, Eliquis 5 mg p.o. b.i.d., amiodarone 400 mg q.12 hours, albuterol 2 puffs q.i.d., isosorbi de mononitrate 60 mg daily, Nitrostat sublingual p.r.n., furosemide 40 mg p.o. daily, and clonazepam 0.5 mg p.o. t.i.d. p.r.n. Allergies: NO KNOWN DRUG ALLERGIES. Family History: Noncontributing. Physical Examination: Vital Signs: Blood pressure 110/55, pulse 60, temperature 97.1, room air pulse oximetry 99%. Heart: Regular rate and rhythm. Chest: Clear to auscultation. Abdomen: Soft, nontender. No hepatosplenomegaly. Bowel sounds normoactive. Extremities: No edema. No cyanosis. Peripheral pulses are felt. Patient's right foot showed 1 inc h circular ulcer that started to look to me with better healing and less erythema and less discharge on the surface. Peripheral pulses faint, but felt. Neurological: Alert, oriented, nonfocal. Grossly intact. Laboratory And Imaging Data: Patient's chest x-ray showed congestive heart failure with bilateral pu lmonary opacities. Electrocardiogram showed atrioventricular dual pacemaker. Head CT report is not available; however, reported by the ER physician to have no acute findings. CBC: White cell count 12.2 with neutrophils at 34, hemoglobin 11.3, hematocrit 34.3, and platelets 2 58. PT 23, INR 2. Chemistry: Troponin 0.13. Rest of his chemistry as noted. Assessment: 1.Congestive heart failure exacerbation. 2.Right foot cellulitis. 3.Type 2 diabetes. 4.Coronary artery disease with elevated troponin. 5.Rest of his chronic medical problems. Plan: 1.The patient is being admitted. Because of increased troponin and congestive heart failure, we hav e consulted Cardiology, who started the patient on Lasix 40 mg IV daily. We will put him on electrol yte protocol. 2.Cellulitis, right foot. We will keep the patient on his oral Keflex. He seems to be responding t o that. However, we would like to do an MRI on his right foot to rule out osteomyelitis because of t he ulcers, which look to me are deep. 3.Type 2 diabetes. We will go ahead and put the patient on sliding scale regular insulin and monito r his blood sugar. 4.We will continue the rest of the patient's medications. Look orders for details. MFS/MODL Voice ID: [id number]
[2019-05-13] MEDS: D5.45NS W/KCL 20MEQ 20 MEQ/1,000 ML BAG IV SCH ×2 (03:50→14:01)
[2019-05-13 04:55] LABS: Absolute Lymphocytes (CBC) 1.3 K/uL (0.7-4.9); Basophils % 0.8 % (0-1.3); Hematocrit 33.4 % (39.6-49.0); Lymphocytes % 11.5 % (15.3-44.8); MPV 9.9 fL (7.6-11.3); RBC Red Blood Cell Count 4.24 M/uL (4.33-5.43)
[2019-05-13 05:04] LABS: Magnesium 1.9 mg/dL (1.8-2.4); Potassium 3.6 mmol/L (3.5-5.1)
[2019-05-13] MEDS ORDERED: hydroCHLOROthiazide 12.5 MG CAP PO SCH (09:00)
[2019-05-13] MEDS ORDERED: METOLAZONE 2.5 MG TABLET PO SCH (09:00)
[2019-05-13] MEDS ORDERED: POTASSIUM CL SA 10 MEQ TAB PO SCH (09:00)
[2019-05-13] MEDS ORDERED: METOPROLOL SUCCINATE PO SCH (09:00)
[2019-05-13] MEDS ORDERED: METOLAZONE 5 MG TABLET PO SCH (09:00)
[2019-05-13] MEDS ORDERED: HCTZ PO SCH (09:00)
[2019-05-13] MEDS ORDERED: ISOSORBIDE MONO SR 60 MG TAB PO SCH (09:00)
[2019-05-13] MEDS ORDERED: METOPROLOL XL 25 MG TAB PO SCH (09:00)
[2019-05-13] MEDS ORDERED: CLOPIDOGREL 75 MG TABLET PO SCH (09:00)
[2019-05-13] MEDS ORDERED: DULOXETINE 30 MG CAP PO SCH (09:00)
[2019-05-13] MEDS: FUROSEMIDE 40 MG/4 ML VIAL IV SCH ×2 (09:00→10:08)
[2019-05-13 09:17] LABS: Urine Appearance CLEAR; Urine Bilirubin NEGATIVE (NEG); Urine Blood TRACE (NEG); Urine Color YELLOW; Urine Glucose NEGATIVE (NEG); Urine Protein NEGATIVE (NEG); Urine Urobilinogen 0.2 mg/dL (0.2-1.0); Urine pH 5.5 (5.0-7.0)
[2019-05-13 09:49] LABS: Urine Microscopic Reflex ORDER UMIC
[2019-05-13 09:53] LABS: Urine Bacteria <20 /HPF (NONE SEEN); Urine Culture Reflex Order NOT NEEDED
[2019-05-13] MEDS: ACETAMINOPHEN 500 MG TAB PO PRN (10:06)
[2019-05-13] MEDS: MAGNESIUM OXIDE 400 MG TAB PO SCH (10:06)
[2019-05-13] MEDS: CEFTRIAXONE/SWI 1gm 1 GM/10 ML SYR IVP SCH (10:06)
[2019-05-13] MEDS: ASPIRIN EC 81 MG TAB PO SCH (10:08)
[2019-05-13] MEDS: GABAPENTIN 300 MG CAP PO SCH ×2 (10:08→13:22)
[2019-05-13] MEDS: APIXABAN 5 MG TABLET PO SCH (10:09)
[2019-05-13] MEDS: AMIODARONE HCL 200 MG TAB PO SCH (10:09)
[2019-05-13] MEDS: INSULIN -REGULAR HUMAN 50 UNIT/0.5 ML ML SQ SCH ×3 (10:09→17:15)
[2019-05-13] MEDS: CEPHALEXIN 500 MG CAP PO SCH ×2 (10:15→13:22)
[2019-05-13 17:13] VITALS: BP 120/56; TEMP 98.1
[2019-05-13 19:54] VITALS: O2SAT 93
== END 2019-05-13 19:39 | disposition left against medical advice (07) | DRG 291 ==
LOC: ER 04:05 → ERHOLD 05:18 → 2ND 07:42
PROVIDERS: ADMIT Internal Medicine; ATTEND Internal Medicine
DX: I13.0 Hypertensive heart and chronic kidney disease with heart failure and stage 1 through stage 4 chronic kidney disease, or unspecified chronic kidney disease (principal); I50.23 Acute on chronic systolic (congestive) heart failure; L03.115 Cellulitis of right lower limb; I25.10 Atherosclerotic heart disease of native coronary artery without angina pectoris; N18.9 Chronic kidney disease, unspecified; E11.22 Type 2 diabetes mellitus with diabetic chronic kidney disease; I25.2 Old myocardial infarction; Z95.0 Presence of cardiac pacemaker; J44.9 Chronic obstructive pulmonary disease, unspecified; K21.9 Gastro-esophageal reflux disease without esophagitis; E78.5 Hyperlipidemia, unspecified; Z23 Encounter for immunization
CPT/HCPCS: 36415; 70450; 71045; 80048; 80051; 80076; 81003; 81015; 82140; 82962; 83690; 83735; 83880; 84484; 85025; 85610; 87040; 87086; 87088; 90471; 93005; 96361; 96365; 96367; 96375; 99285; J0696; J1940; J3475; J7030; Q2035

== ENCOUNTER 2019-10-30 17:28 | Inpatient (IN) | payer OTHER ==
--- OUTSIDE RECORDS SUMMARY | 2019-10-30 17:31 | XMS REPORT ---
:1945 [facility] Address [address] [place] [address] [address] [place] [address] Care Team Providers Name Role Phone DAKOTA BREAUX Unavailable Unavailable Problems This patient has no known problems. Allergies, Adverse Reactions, Alerts This patient has no known allergies or adverse reactions. Medications This patient has no known medications. Results Test Description Test Time Test Comments Text Results Atomic Results Result Comments BLOOD CULTURE 2019-02-17 02:00:00 Test Item Value Reference Range Comments CULTURE (BEAKER) (test ztdm=6334) No growth in 5 days BLOOD [id number] 02:00:00 Test Item Value Reference Range Comments CULTURE (BEAKER) (test nifj=8092) No growth in 5 days BLOOD [id number] 02:01:00 Test Item Value Reference Range Comments CULTURE (BEAKER) (test mxgj=5218) No growth in 5 days BLOOD [id number] 11:30:00 Test Item Value Reference Range Comments CULTURE (BEAKER) From Anaerobic Bottle Only (test wmmt=6663) Coagulase negative Staphylococcus GRAM STAIN RESULT From anaerobic bottle (BEAKER) (test only: gram positive xeem=8330) cocci in clusters POCT-GLUCOSE [id number] 07:57:00 Test Item Value Reference Range Comments POC-GLUCOSE METER (BEAKER) 159 mg/dL 70-[address] [facility] [address] [place] (test cdbe=8264) [facility] [address] [id number] 05:44:00 Test Item Value Reference Range Comments PARTIAL THROMBOPLASTIN TIME (BEAKER) (test 61.1 seconds 22.5-36.0 fjwg=649) CBC (HEMOGRAM ONLY)2019-02-12 05:15:00 Test Item Value Reference Range Comments WHITE BLOOD CELL COUNT (BEAKER) (test wwep=014) 11.3 K/ L 3.5-10.5 RED BLOOD CELL COUNT (BEAKER) (test rggs=369) 4.31 M/ L 4.63-6.08 HEMOGLOBIN (BEAKER) (test qahu=985) 11.3 GM/DL 13.7-17.5 HEMATOCRIT (BEAKER) (test aoho=496) 34.7 % 40.1-51.0 MEAN CORPUSCULAR VOLUME (BEAKER) (test zwbq=494) 80.5 fL 79.0-92.2 MEAN CORPUSCULAR HEMOGLOBIN (BEAKER) (test 26.2 pg 25.7-32.2 pgfs=415) MEAN CORPUSCULAR HEMOGLOBIN CONC (BEAKER) (test 32.6 GM/DL 32.3-36.5 djof=258) RED CELL DISTRIBUTION WIDTH (BEAKER) (test 15.8 % 11.6-14.4 bjns=951) PLATELET COUNT (BEAKER) (test kvsg=002) 166 K/CU MM 150-450 MEAN PLATELET VOLUME (BEAKER) (test wbgn=201) 11.3 fL 9.4-12.4 NUCLEATED RED BLOOD CELLS (BEAKER) (test 0 /100 WBC 0-0 hhin=230) [id number] 02:49:00 Test Item Value Reference Range Comments MAGNESIUM (BEAKER) (test wzhn=328) 2.1 mg/dL 1.6-2.6 BASIC METABOLIC [id number] 02:49:00 Test Item Value Reference Range Comments SODIUM (BEAKER) (test 132 meq/L 136-145 nklw=479) POTASSIUM (BEAKER) (test 3.5 meq/L 3.5-5.1 wtta=946) CHLORIDE (BEAKER) (test 92 meq/L 98-107 snng=046) CO2 (BEAKER) (test 30 meq/L 22-29 qydh=372) BLOOD UREA NITROGEN 53 mg/dL 7-21 (BEAKER) (test uime=410) CREATININE (BEAKER) (test 2.06 mg/dL 0.57-1.25 hwpb=573) GLUCOSE RANDOM (BEAKER) 129 mg/dL 70-105 (test tyji=738) CALCIUM (BEAKER) (test 8.7 mg/dL 8.4-10.2 dcyb=240) EGFR (BEAKER) (test 32 mL/min/1.73 sq m ESTIMATED GFR IS NOT vwbn=2486) ACCURATE CREATININE CLEARANCE IN PREDICTING GLOMERULAR FILTRATION RATE. ESTIMATED GFR IS NOT APPLICABLE FOR DIALYSIS PATIENTS. POCT-GLUCOSE [id number] 21:33:00 Test Item Value Reference Range Comments POC-GLUCOSE METER (DALIA) 122 mg/dL 70-[address] [facility] [address] (test vpsp=9076) [facility] [address] BLOOD CULTURE IDENTIFICATION [id number] 21:08:00 Test Item Value Reference Range Comments LISTERIA MONOCYTOGENES (test Not detected Not detected ftqk=[id number]) STAPHYLOCOCCUS (test Detected Not detected Coagulase negative Staph ojwb=[id number]) species (CoNS)- methicillin resistantFirst-line therapy: Vancomycin MecA DETECTED Possible contamination. The likelihood of pathogenicity is increased if the organism is observed in multiple blood cultures obtained from separate venipunctures. Reference Range: Not Detected STAPHYLOCOCCUS AUREUS (test Not detected Not detected zigr=[id number]) STREPTOCOCCUS (test Not detected Not detected cmxx=3840586) STREPTOCOCCUS AGALACTIAE (GROUP Not detected Not detected B) (test yaop=8992773) STREPTOCOCCUS PNEUMONIAE (test Not detected Not detected arnl=1935899) STREPTOCOCCUS PYOGENES (GROUP Not detected Not detected A) (test nlpv=8152293) ACINETOBACTER BAUMANNII (test Not detected Not detected sqjm=6269417) HAEMOPHILUS INFLUENZAE (test Not detected Not detected immd=7138122) NEISSERIA MENINGITIDIS (test Not detected Not detected uhuc=0684199) ENTEROBACTERIACEAE (test Not detected Not detected bgyj=6108705) ENTEROBACTER CLOACOE COMPLEX Not detected Not detected (test zzgd=9930687) KLEBSIELLA OXYTOCA (test Not detected Not detected cfyh=5619197) KLEBSIELLA PNEUMONIAE (test Not detected Not detected vnia=0842) PROTEUS (test dlmn=5908735) Not detected Not detected SERRATIA MARCESCENS (test Not detected Not detected yyoy=7483762) MOE ALBICANS (test Not detected Not detected wbcj=0737335) MOE GLABRATA (test Not detected Not detected uaqw=5433816) MOE KRUSEI (test Not detected Not detected qrsq=0432460) MOE PARAPSILOSIS (test Not detected Not detected vcfp=9162252) MOE TROPICALIS (test Not detected Not detected oxlo=5170125) ESCHERICHIA COLI (test Not detected Not detected nhlv=2239990) METHICILLIN-RESISTANCE GENE Detected Not detected (test nkbz=5872053) VANCOMYCIN-RESISTANCE GENE Not detected (test pvvn=7494410) CARBAPENEM-RESISTANCE GENE Not detected (test xwze=5776889) ENTEROCOCCUS-BEAKER (test Not detected Not detected dtlc=4517280) PSEUDOMONAS AERUGINOSA-BEAKER Not detected Not detected (test yacj=3987330) Other bacteria and resistance markers not targeted by this PCR panel cannot be excluded; therefore clinical correlation and follow up of serology, culture results, and other molecular studies is required. The results are not intended to be used as the sole means for clinical diagnosis or patient management decisions. This sample was tested at the [facility] Molecular Diagnostics Laboratory using the ZeroDesktop Blood Culture ID Panel. It is FDA cleared and has been verified and approved by the [facility]ostics [facility] for clinical use. This laboratory is CLIA-certified and College ofAmerican Pathologists (CAP)-accredited to perform high complexity testing.TROPONIN [id number] 18:26:00 Test Item Value Reference Range Comments TROPONIN I (BEAKER) (test gwhn=866) 3.53 ng/mL 0.00-0.03 Troponin I (TnI) levels must be interpreted in the context of the presenting symptoms and the clinical findings. Elevated TnI levels indicate myocardial damage, but are not specific for ischemic heart disease. Elevated TnI levels are seen in patients with other cardiac conditions (including myocarditis and congestive heart failure), and slight TnI elevations occur in patients with other conditions, including sepsis, renal failure, acidosis, acute neurological disease, and persistent tachyarrhythmia.BASIC METABOLIC [id number] 17:47:00 Test Item Value Reference Range Comments SODIUM (BEAKER) (test 133 meq/L 136-145 mety=427) POTASSIUM (BEAKER) (test 3.3 meq/L 3.5-5.1 mcjh=523) CHLORIDE (BEAKER) (test 91 meq/L 98-107 gwug=176) CO2 (BEAKER) (test 30 meq/L 22-29 macy=041) BLOOD UREA NITROGEN 58 mg/dL 7-21 (BEAKER) (test nxlm=327) CREATININE (BEAKER) (test 2.26 mg/dL 0.57-1.25 neqw=241) GLUCOSE RANDOM (BEAKER) 133 mg/dL 70-105 (test alnk=429) CALCIUM (BEAKER) (test 8.9 mg/dL 8.4-10.2 efum=615) EGFR (BEAKER) (test 29 mL/min/1.73 sq m ESTIMATED GFR IS NOT vzht=0529) ACCURATE CREATININE CLEARANCE IN PREDICTING GLOMERULAR FILTRATION RATE. ESTIMATED GFR IS NOT APPLICABLE FOR DIALYSIS PATIENTS. [id number] 17:38:00 Test Item Value Reference Range Comments MAGNESIUM (BEAKER) (test ioor=523) 2.2 mg/dL 1.6-2.6 POCT-GLUCOSE [id number] 17:14:00 Test Item Value Reference Range Comments POC-GLUCOSE METER (BEAKER) 130 mg/dL 70-[address] [facility] [address] [place] (test oisb=8624) [facility] [address] OCCULT BLOOD, [id number] 15:16:00 Test Item Value Reference Range Comments FECAL OCCULT BLOOD (BEAKER) (test nsqq=284) Positive Negative RAD, FOOT, MIN 3 VIEWS, [id number] 13:28:00Reason for exam:->pain, h/o fallFINAL REPORT RAD, FOOT, MIN 3 VIEWS, RIGHT CLINICAL INDICATION: pain, h/o fall COMPARISON: None FINDINGS: Frontal, oblique and lateral views of the right foot. No fracture isidentified. The joint spaces appear preserved. Surrounding soft tissues are unremarkable. IMPRESSION: No acute abnormality of the right foot. Signed: JR Worley Robert MDReport Verified Date/Time: 02/11/2019 13:28:04 Reading Location: [address] Neuro Reading Room RAD, HIPS, BILATERALTO INCLUDE [id number] 13:17: 00Reason for exam:->pain, h/o fallFINAL REPORT RAD, HIPS, BILATERALTO INCLUDE PELVIS CLINICAL INDICATION: pain, h/o fall COMPARISON : None FINDINGS: Single AP view of the pelvis Frontal and frogleg views of the hips. There is no fracture or malalignment. The sacroiliac joints, hip joints and symphysis pubis appear intact. Periarticular fat stripes are in place. Surrounding soft tissues are unremarkable. IMPRESSION: No acute or traumatic abnormality of the pelvis or hips. Signed: JR Worley Robert MDReport Verified Date/Time: 02/11/2019 13:17:42 Reading Location: [facility] C013V Neuro Reading Room POCT-GLUCOSE [id number] 12:40:00 Test Item Value Reference Range Comments POC-GLUCOSE METER (BEAKER) 139 mg/dL 70-[address] [facility] [address] [place] (test uuxy=5324) [facility] [address] THROMBOELASTOGRAPH (TEG)2019-02-11 11:21:00 Test Item Value Reference Range Comments TEG ACTIVATED CLOTTING TIME (BEAKER) (test 13.5 minutes 4.0-7.0 tmwt=7460) TEG FIBRINOGEN ACTIVITY (BEAKER) (test 53.1 degrees 61.0-73.0 fkhf=3165) TEG PLT. AGGREGATION (BEAKER) (test tpnb=9966) 67.2 MM 55.0-65.0 TEG FIBRINOLYSIS (BEAKER) (test qzhy=4405) 0.1 % 0.0-5.0 TGH ACTIVATED CLOTTING TIME (BEAKER) (test 7.7 minutes 4.0-7.0 onzf=2988) TGH FIBRINOGEN ACTIVITY (BEAKER) (test 70.4 degrees 61.0-73.0 qdmi=8207) TGH PLT. AGGREGATION (BEAKER) (test lbej=9881) 63.5 MM 55.0-65.0 TGH FIBRINOLYSIS (BEAKER) (test qomk=6090) 0.0 % 0.0-5.0 BASIC METABOLIC [id number] 10:37:00 Test Item Value Reference Range Comments SODIUM (BEAKER) (test 133 meq/L 136-145 lhum=771) POTASSIUM (BEAKER) (test 3.6 meq/L 3.5-5.1 qvfb=178) CHLORIDE (BEAKER) (test 90 meq/L 98-107 ymca=359) CO2 (BEAKER) (test 31 meq/L 22-29 kcdx=989) BLOOD UREA NITROGEN 57 mg/dL 7-21 (BEAKER) (test dmgw=546) CREATININE (BEAKER) (test 2.60 mg/dL 0.57-1.25 pvpj=712) GLUCOSE RANDOM (BEAKER) 162 mg/dL 70-105 (test sdlq=772) CALCIUM (BEAKER) (test 9.0 mg/dL 8.4-10.2 cxpb=905) EGFR (BEAKER) (test 24 mL/min/1.73 sq m ESTIMATED GFR IS NOT qudc=7579) ACCURATE CREATININE CLEARANCE IN PREDICTING GLOMERULAR FILTRATION RATE. ESTIMATED GFR IS NOT APPLICABLE FOR DIALYSIS PATIENTS. [id number] 10:25:00 Test Item Value Reference Range Comments MAGNESIUM (BEAKER) (test zeik=000) 2.4 mg/dL 1.6-2.6 POCT-GLUCOSE [id number] 07:48:00 Test Item Value Reference Range Comments POC-GLUCOSE METER (BEAKER) 132 mg/dL 70-[address] [facility] [address] [place] (test pgso=3324) [facility] [address] BASIC METABOLIC [id number] 06:18:00 Test Item Value Reference Range Comments SODIUM (BEAKER) (test 135 meq/L 136-145 week=802) POTASSIUM (BEAKER) (test 3.8 meq/L 3.5-5.1 dbpy=561) CHLORIDE (BEAKER) (test 92 meq/L 98-107 gxfu=388) CO2 (BEAKER) (test 29 meq/L 22-29 gbvx=043) BLOOD UREA NITROGEN 55 mg/dL 7-21 (BEAKER) (test ctac=712) CREATININE (BEAKER) (test 2.58 mg/dL 0.57-1.25 zgak=449) GLUCOSE RANDOM (BEAKER) 134 mg/dL 70-105 (test bwvq=796) CALCIUM (BEAKER) (test 9.0 mg/dL 8.4-10.2 snhk=397) EGFR (BEAKER) (test 25 mL/min/1.73 sq m ESTIMATED GFR IS NOT zkcv=4805) ACCURATE CREATININE CLEARANCE IN PREDICTING GLOMERULAR FILTRATION RATE. ESTIMATED GFR IS NOT APPLICABLE FOR DIALYSIS PATIENTS. [id number] 06:09:00 Test Item Value Reference Range Comments MAGNESIUM (BEAKER) (test cfid=634) 2.3 mg/dL 1.6-2.6 [id number] 06:01:00 Test Item Value Reference Range Comments PARTIAL THROMBOPLASTIN TIME (BEAKER) (test 62.8 seconds 22.5-36.0 qhcg=865) CBC (HEMOGRAM ONLY)2019-02-11 05:37:00 Test Item Value Reference Range Comments WHITE BLOOD CELL COUNT (BEAKER) (test euwd=258) 11.6 K/ L 3.5-10.5 RED BLOOD CELL COUNT (BEAKER) (test igng=193) 4.78 M/ L 4.63-6.08 HEMOGLOBIN (BEAKER) (test lkvt=614) 12.4 GM/DL 13.7-17.5 HEMATOCRIT (BEAKER) (test chjv=224) 39.1 % 40.1-51.0 MEAN CORPUSCULAR VOLUME (BEAKER) (test eiua=491) 81.8 fL 79.0-92.2 MEAN CORPUSCULAR HEMOGLOBIN (BEAKER) (test 25.9 pg 25.7-32.2 wreq=972) MEAN CORPUSCULAR HEMOGLOBIN CONC (BEAKER) (test 31.7 GM/DL 32.3-36.5 quvc=136) RED CELL DISTRIBUTION WIDTH (BEAKER) (test 16.0 % 11.6-14.4 wkfq=983) PLATELET COUNT (BEAKER) (test mccl=104) 212 K/CU MM 150-450 MEAN PLATELET VOLUME (BEAKER) (test jamq=231) 11.1 fL 9.4-12.4 NUCLEATED RED BLOOD CELLS (BEAKER) (test 0 /100 WBC 0-0 gscz=818) BLOOD GAS, [id number] 03:26:00 Test Item Value Reference Range Comments PH ARTERIAL (BEAKER) (test edcj=037) 7.45 7.35-7.45 PCO2 ARTERIAL (BEAKER) (test ktxe=734) 49 mmHg 35-45 PO2 ARTERIAL (BEAKER) (test zkeo=710) 129 mmHg 80-90 O2 SATURATION ARTERIAL (BEAKER) (test oaty=534) 98.7 % 96.0-97.0 HCO3 ARTERIAL (BEAKER) (test rsnv=862) 33 mmol/L 21-29 BASE EXCESS ARTERIAL (BEAKER) (test nfck=397) 7.8 mmol/L -2.0-3.0 PATIENT TEMPERATURE (BEAKER) (test veei=3204) 36.6 C FIO2 (BEAKER) (test bmuj=4538) 36.0 % U/S, RENAL, [id number] 02:32:00Reason for exam:->eval for hydro/ obstructionFINAL REPORT Ultrasound of the Kidneys Clinical History: Elevated BUN/creatinine. Discussion: Sonographic evaluation of the kidneys was performed. There is no prior study for direct comparison. Right kidney: 9.6 x 4.6 x 4.2 cm, with cortical thickness of 1.3 cm. Normal cortical echogenicity. No mass. No shadowing calculus. No hydronephrosis. Left kidney: 9.4 x 4.4 x 3.5 cm, with cortical thickness of 1.2 cm. Normal cortical echogenicity. No mass. No shadowing calculus. No hydronephrosis. Limited doppler evaluation of bilateral main renal arteries and veins demonstrate patency. Bladder: Collapsed around a Suh catheter balloon. Impression: No hydronephrosis. Signed: [facility] Verified Date/Time : 02/11/2019 02:32:46 NE [id number] 23:59:00 Test Item Value Reference Range Comments TROPONIN I (BEAKER) (test xjss=954) 8.42 ng/mL 0.00-0.03 Troponin I (TnI) levels must be interpreted in the context of the presenting symptoms and the clinical findings. Elevated TnI levels indicate myocardial damage, but are not specific for ischemic heart disease. Elevated TnI levels are seen in patients with other cardiac conditions (including myocarditis and congestive heart failure), and slight TnI elevations occur in patients with other conditions, including sepsis, renal failure, acidosis, acute neurological disease, and persistent tachyarrhythmia.[id number] 23:53:00 Test Item Value Reference Range Comments PARTIAL THROMBOPLASTIN TIME (BEAKER) (test 65.0 seconds 22.5-36.0 wkcq=117) BASIC METABOLIC [id number] 23:52:00 Test Item Value Reference Range Comments SODIUM (BEAKER) (test 136 meq/L 136-145 bsxy=627) POTASSIUM (BEAKER) (test 3.4 meq/L 3.5-5.1 uwag=120) CHLORIDE (BEAKER) (test 91 meq/L 98-107 tvug=788) CO2 (BEAKER) (test 29 meq/L 22-29 kfnu=689) BLOOD UREA NITROGEN 50 mg/dL 7-21 (BEAKER) (test ooxo=261) CREATININE (BEAKER) (test 2.57 mg/dL 0.57-1.25 hdur=881) GLUCOSE RANDOM (BEAKER) 130 mg/dL 70-105 (test ynik=437) CALCIUM (BEAKER) (test 8.8 mg/dL 8.4-10.2 zlnz=900) EGFR (BEAKER) (test 25 mL/min/1.73 sq m ESTIMATED GFR IS NOT jcml=9034) ACCURATE CREATININE CLEARANCE IN PREDICTING GLOMERULAR FILTRATION RATE. ESTIMATED GFR IS NOT APPLICABLE FOR DIALYSIS PATIENTS. [id number] 23:50:00 Test Item Value Reference Range Comments MAGNESIUM (BEAKER) (test qhem=620) 2.7 mg/dL 1.6-2.6 CBC W/PLT COUNT & AUTO [id number] 23:33:00 Test Item Value Reference Range Comments WHITE BLOOD CELL COUNT (BEAKER) (test kdsd=252) 10.9 K/ L 3.5-10.5 RED BLOOD CELL COUNT (BEAKER) (test tnjg=245) 4.90 M/ L 4.63-6.08 HEMOGLOBIN (BEAKER) (test wvyw=958) 12.7 GM/DL 13.7-17.5 HEMATOCRIT (BEAKER) (test vzco=991) 40.1 % 40.1-51.0 MEAN CORPUSCULAR VOLUME (BEAKER) (test gsuk=004) 81.8 fL 79.0-92.2 MEAN CORPUSCULAR HEMOGLOBIN (BEAKER) (test 25.9 pg 25.7-32.2 riym=903) MEAN CORPUSCULAR HEMOGLOBIN CONC (BEAKER) (test 31.7 GM/DL 32.3-36.5 hbrf=175) RED CELL DISTRIBUTION WIDTH (BEAKER) (test 16.0 % 11.6-14.4 ngad=602) PLATELET COUNT (BEAKER) (test bcud=356) 207 K/CU MM 150-450 MEAN PLATELET VOLUME (BEAKER) (test fjhy=777) 11.2 fL 9.4-12.4 NUCLEATED RED BLOOD CELLS (BEAKER) (test 0 /100 WBC 0-0 hfkp=109) NEUTROPHILS RELATIVE PERCENT (BEAKER) (test 78 % uoqi=533) LYMPHOCYTES RELATIVE PERCENT (BEAKER) (test 10 % cvsk=444) MONOCYTES RELATIVE PERCENT (BEAKER) (test 11 % gvlh=268) EOSINOPHILS RELATIVE PERCENT (BEAKER) (test 1 % ceij=255) BASOPHILS RELATIVE PERCENT (BEAKER) (test 1 % mtya=481) NEUTROPHILS ABSOLUTE COUNT (BEAKER) (test 8.50 K/ L 1.78-5.38 xeay=628) LYMPHOCYTES ABSOLUTE COUNT (BEAKER) (test 1.08 K/ L 1.32-3.57 lzgi=550) MONOCYTES ABSOLUTE COUNT (BEAKER) (test 1.17 K/ L 0.30-0.82 zizb=632) EOSINOPHILS ABSOLUTE COUNT (BEAKER) (test 0.06 K/ L 0.04-0.54 mmjk=407) BASOPHILS ABSOLUTE COUNT (BEAKER) (test 0.09 K/ L 0.01-0.08 iaes=227) IMMATURE GRANULOCYTES-RELATIVE PERCENT (BEAKER) 0 % 0-1 (test kezf=7879) POCT-GLUCOSE [id number] 22:44:00 Test Item Value Reference Range Comments POC-GLUCOSE METER (BEAKER) 128 mg/dL 70-[address] [facility] [address] [place] (test twto=1627) [facility] [address] URINALYSIS W/ REFLEX URINE [id number] 18:39:00 Test Item Value Reference Range Comments COLOR (BEAKER) (test iaqa=496) Yellow CLARITY (BEAKER) (test zjwj=732) Clear SPECIFIC GRAVITY UA (BEAKER) (test wkfg=439) 1.007 1.001-1.035 PH UA (BEAKER) (test vzbm=218) 5.5 5.0-8.0 PROTEIN UA (BEAKER) (test hjgr=615) 20 mg/dL Negative GLUCOSE UA (BEAKER) (test glfv=434) Negative Negative KETONES UA (BEAKER) (test mopl=112) Negative Negative BILIRUBIN UA (BEAKER) (test wham=773) Negative Negative BLOOD UA (BEAKER) (test jpsy=356) Negative Negative NITRITE UA (BEAKER) (test dtxu=938) Negative Negative LEUKOCYTE ESTERASE UA (BEAKER) (test jazs=763) Negative Negative UROBILINOGEN UA (BEAKER) (test eqee=368) 0.2 mg/dL 0.2-1.0 RBC UA (BEAKER) (test vpdx=822) 0 /HPF WBC UA (BEAKER) (test nwcu=525) 1 /HPF SQUAMOUS EPITHELIAL (BEAKER) (test wrfe=766) < /HPF HYALINE CASTS (BEAKER) (test aaje=375) 2 /LPF SOURCE(BEAKER) (test kstd=9211) RAD, CHEST, 1 VIEW, NON [id number] 17:57:00Reason for exam:->central line insertionShould this be performed at the bedside?->YesFINAL REPORT Portable chest. CLINICAL HISTORY: central line insertion. COMPARISON STUDY: February 10, 2019. FINDINGS: The cardiac silhouette is enlarged. The pulmonary parenchyma demonstrates mild interstitial markings. A left jugular line is in place, the tip projecting over the SVC. The support lines and tubes are otherwise unchanged. No pneumothorax is seen. Degenerative changesare noted. IMPRESSION: Left jugular line insertion, the tip projecting over the SVC. No other significant change. Signed: Jarrod Morrison MDReport Verified Date/Time: 02/10/2019 17:57:54 Reading Location: [address] Consult Reading Room BLOOD GAS, [id number] 15:43:00 Test Item Value Reference Range Comments PH ARTERIAL (BEAKER) (test ptoj=689) 7.48 7.35-7.45 PCO2 ARTERIAL (BEAKER) (test cwmw=376) 51 mmHg 35-45 PO2 ARTERIAL (BEAKER) (test utxg=852) 99 mmHg 80-90 O2 SATURATION ARTERIAL (BEAKER) (test tjpo=085) 97.9 % 96.0-97.0 HCO3 ARTERIAL (BEAKER) (test zyfv=715) 37 mmol/L 21-29 BASE EXCESS ARTERIAL (BEAKER) (test oghb=899) 11.8 mmol/L -2.0-3.0 PATIENT TEMPERATURE (BEAKER) (test gnxc=5456) 36.6 C FIO2 (BEAKER) (test smuc=4789) 36.0 % [id number] 14:59:00 Test Item Value Reference Range Comments PARTIAL THROMBOPLASTIN TIME (BEAKER) (test 41.1 seconds 22.5-36.0 fncd=625) Prior to initiating heparinTSH/FREE T4 IF [id number] 14:54:00 Test Item Value Reference Range Comments THYROID STIMULATING HORMONE (BEAKER) (test 1.76 uIU/mL 0.35-4.94 hykw=667) TROPONIN [id number] 14:46:00 Test Item Value Reference Range Comments TROPONIN I (BEAKER) (test hoxk=099) 5.35 ng/mL 0.00-0.03 Troponin I (TnI) levels must be interpreted in the context of the presenting symptoms and the clinical findings. Elevated TnI levels indicate myocardial damage, but are not specific for ischemic heart disease. Elevated TnI levels are seen in patients with other cardiac conditions (including myocarditis and congestive heart failure), and slight TnI elevations occur in patients with other conditions, including sepsis, renal failure, acidosis, acute neurological disease, and persistent tachyarrhythmia.TROPONIN [id number] 14:38:00 Test Item Value Reference Range Comments TROPONIN I (BEAKER) (test ecxv=811) 4.94 ng/mL 0.00-0.03 Troponin I (TnI) levels must be interpreted in the context of the presenting symptoms and the clinical findings. Elevated TnI levels indicate myocardial damage, but are not specific for ischemic heart disease. Elevated TnI levels are seen in patients with other cardiac conditions (including myocarditis and congestive heart failure), and slight TnI elevations occur in patients with other conditions, including sepsis, renal failure, acidosis, acute neurological disease, and persistent tachyarrhythmia.COMPREHENSIVE METABOLIC [id number] 14:38:00 Test Item Value Reference Range Comments TOTAL PROTEIN (BEAKER) 7.1 gm/dL 6.0-8.3 (test jzfd=616) ALBUMIN (BEAKER) (test 3.4 g/dL 3.5-5.0 miof=3150) ALKALINE PHOSPHATASE 135 U/L 40-150 (BEAKER) (test aepv=335) BILIRUBIN TOTAL (BEAKER) 0.6 mg/dL 0.2-1.2 (test ywum=293) SODIUM (BEAKER) (test 139 meq/L 136-145 mdrd=614) POTASSIUM (BEAKER) (test 2.5 meq/L 3.5-5.1 pmib=290) CHLORIDE (BEAKER) (test 90 meq/L 98-107 dikc=602) CO2 (BEAKER) (test 37 meq/L 22-29 khpd=839) BLOOD UREA NITROGEN 47 mg/dL 7-21 (BEAKER) (test shya=426) CREATININE (BEAKER) (test 2.60 mg/dL 0.57-1.25 lkmd=624) GLUCOSE RANDOM (BEAKER) 119 mg/dL 70-105 (test wbni=504) CALCIUM (BEAKER) (test 8.7 mg/dL 8.4-10.2 ruct=973) AST (SGOT) (BEAKER) (test 33 U/L 5-34 uzrc=039) ALT (SGPT) (BEAKER) (test 9 U/L 6-55 drci=232) EGFR (BEAKER) (test 24 mL/min/1.73 sq m ESTIMATED GFR IS NOT azgk=7799) ACCURATE CREATININE CLEARANCE IN PREDICTING GLOMERULAR FILTRATION RATE. ESTIMATED GFR IS NOT APPLICABLE FOR DIALYSIS PATIENTS. RAD, CHEST, 1 VIEW, NON [id number] 14:36:00Reason for exam:-> CracklesShould this be performed at the bedside?->YesFINAL REPORT TECHNIQUE: Frontal chest radiograph dated 02/10/2019. CLINICAL HISTORY: Crackles COMPARISON STUDY: None IMPRESSION:Right sided defibrillator is present. Prominent lung markings are compatible with interstitial edema. There is mild pulmonary vascular congestion. No pleural effusion or pneumothorax. There is mild cardiomegaly. No fracture. Signed: Katie Gamezeport Verified Date/Time: 02/10/2019 14:36:05 Reading Location: [facility] Radiology Reading Room [id number] 14:31:00 Test Item Value Reference Range Comments PHOSPHORUS (BEAKER) (test pdvi=453) 4.2 mg/dL 2.3-4.7 [id number] 14:31:00 Test Item Value Reference Range Comments MAGNESIUM (BEAKER) (test ynyc=846) 1.6 mg/dL 1.6-2.6 B-TYPE NATRIURETIC FACTOR (BNP)2019-02-10 14:29:00 Test Item Value Reference Range Comments B-TYPE NATRIURETIC PEPTIDE (BEAKER) (test 1237 pg/mL 0-100 hflg=113) LACTIC ACID, [id number] 14:24:00 Test Item Value Reference Range Comments LACTATE BLOOD VENOUS (2) 1.6 mmol/L 0.5-2.2 Specimen slightly hemolyzed (BEAKER) (test pmme=7125) BLOOD GAS, [id number] 14:01:00 Test Item Value Reference Range Comments PH ARTERIAL (BEAKER) (test bnuu=239) 7.45 7.35-7.45 PCO2 ARTERIAL (BEAKER) (test cluc=814) 57 mmHg 35-45 PO2 ARTERIAL (BEAKER) (test stom=147) 48 mmHg 80-90 O2 SATURATION ARTERIAL (BEAKER) (test mkgk=000) 85.6 % 96.0-97.0 HCO3 ARTERIAL (BEAKER) (test ykpc=092) 39 mmol/L 21-29 BASE EXCESS ARTERIAL (BEAKER) (test gnix=288) 12.0 mmol/L -2.0-3.0 PATIENT TEMPERATURE (BEAKER) (test zwnl=6912) 36.5 C FIO2 (BEAKER) (test zlns=0928) 36.0 % CBC W/PLT COUNT & AUTO [id number] 13:50:00 Test Item Value Reference Range Comments WHITE BLOOD CELL COUNT (BEAKER) (test qjtm=624) 10.5 K/ L 3.5-10.5 RED BLOOD CELL COUNT (BEAKER) (test sipx=865) 5.01 M/ L 4.63-6.08 HEMOGLOBIN (BEAKER) (test kczz=503) 12.9 GM/DL 13.7-17.5 HEMATOCRIT (BEAKER) (test xfas=802) 41.4 % 40.1-51.0 MEAN CORPUSCULAR VOLUME (BEAKER) (test wviu=881) 82.6 fL 79.0-92.2 MEAN CORPUSCULAR HEMOGLOBIN (BEAKER) (test 25.7 pg 25.7-32.2 vsox=639) MEAN CORPUSCULAR HEMOGLOBIN CONC (BEAKER) (test 31.2 GM/DL 32.3-36.5 lpbf=823) RED CELL DISTRIBUTION WIDTH (BEAKER) (test 16.0 % 11.6-14.4 ubdv=970) PLATELET COUNT (BEAKER) (test jkcv=995) 219 K/CU MM 150-450 MEAN PLATELET VOLUME (BEAKER) (test jagp=426) 11.1 fL 9.4-12.4 NUCLEATED RED BLOOD CELLS (BEAKER) (test 0 /100 WBC 0-0 pplo=117) NEUTROPHILS RELATIVE PERCENT (BEAKER) (test 83 % etay=093) LYMPHOCYTES RELATIVE PERCENT (BEAKER) (test 7 % tads=728) MONOCYTES RELATIVE PERCENT (BEAKER) (test 9 % prbg=241) EOSINOPHILS RELATIVE PERCENT (BEAKER) (test 0 % zsdv=213) BASOPHILS RELATIVE PERCENT (BEAKER) (test 1 % uxhd=357) NEUTROPHILS ABSOLUTE COUNT (BEAKER) (test 8.71 K/ L 1.78-5.38 xvfa=548) LYMPHOCYTES ABSOLUTE COUNT (BEAKER) (test 0.75 K/ L 1.32-3.57 jnme=420) MONOCYTES ABSOLUTE COUNT (BEAKER) (test 0.89 K/ L 0.30-0.82 yzko=914) EOSINOPHILS ABSOLUTE COUNT (BEAKER) (test 0.02 K/ L 0.04-0.54 jgsl=363) BASOPHILS ABSOLUTE COUNT (BEAKER) (test 0.06 K/ L 0.01-0.08 lcwq=414) IMMATURE GRANULOCYTES-RELATIVE PERCENT (BEAKER) 1 % 0-1 (test jtcf=7051) POCT-GLUCOSE [id number] 12:35:00 Test Item Value Reference Range Comments POC-GLUCOSE METER (BEAKER) 143 mg/dL 70-[address] [facility] [address] (test xywu=0277) [facility] [id number]
[2019-10-30 18:05] LABS: Absolute Lymphocytes (CBC) 0.5 K/uL (0.7-4.9); Basophils % 1.2 % (0-1.3); Hematocrit 36.2 % (39.6-49.0); Lymphocytes % 7.7 % (15.3-44.8); MPV 9.8 fL (7.6-11.3); RBC Red Blood Cell Count 4.75 M/uL (4.33-5.43)
[2019-10-30] MEDS ORDERED: D50W 25 GM/50 ML SYRINGE/VIAL IV ONE ×4 (18:05→23:59)
[2019-10-30] MEDS ORDERED: D5 0.45 NS 1,000 ML IV ONE (18:05)
--- NOTE | 2019-10-30 18:25 | RAD REPORT ---
EXAM DESCRIPTION: RAD - Chest Single View - 10/30/2019 6:15 pm CLINICAL HISTORY: CONGESTION, shortness of breath COMPARISON: Portable April 2019 TECHNIQUE: AP portable chest image was obtained 10/30/2019 6:15 pm . FINDINGS: Increased interstitial opacification present without a focal consolidation. Vascular engor gement is present. Prominent cardiomegaly noted. Trachea is midline. Defibrillator/pacemaker remains in place. No pneumothorax. Left costophrenic angle blunting is present. No acute bony abnormality see n. No acute aortic findings suspected. IMPRESSION: Mild to moderate CHF/volume overload pattern.
[2019-10-30 18:27] LABS: Albumin 2.7 g/dL (3.4-5.0); Bilirubin Direct 0.5 mg/dL (0-0.2); Bilirubin Total 0.7 mg/dL (0.2-1.0); Protein, Total 7.5 g/dL (6.4-8.2)
[2019-10-30 18:29] LABS: Potassium 2.4 mmol/L (3.5-5.1)
[2019-10-30 18:55] LABS: Urine Blood TRACE (NEG); Urine Glucose NEGATIVE (NEG); Urine Protein NEGATIVE (NEG); Urine Specific Gravity 1.015 (1.005-1.030); Urine pH 5.5 (5.0-7.0)
[2019-10-30] MEDS ORDERED: KCL 20 MEQ/100 mL IVPB 40 MEQ/200 ML BAG IV ONE (19:00)
--- NOTE | 2019-10-30 19:35 | ER ---
Nurse's Notes [facility] Name: Geovanny Moore Age: 73 yrs Sex: Male : 1945 Arrival Date: 10/30/2019 Time: 17:31 Bed 4 Private MD: Diagnosis: Hypoglycemia, unspecified;Hypokalemia Presentation: 10/29 17:32 Chief complaint: EMS states: HYPOGLYCEMIA. Coronavirus screen: The patient has NOT bp traveled to a country currently being monitored by the CDC within the last 14 days. The patient has NOT had contact with any known and/or suspected case of coronavirus. Proceed with normal triage procedures. Ebola Screen: No symptoms or risks identified at this time. Initial Sepsis Screen: Does the patient meet any 2 criteria? Altered Mental Status. No. Patient's initial sepsis screen is negative. Does the patient have a suspected source of infection? No. Patient's initial sepsis screen is negative. Risk Assessment: Do you want to hurt yourself or someone else? Patient reports no desire to harm self or others. 17:32 Method Of Arrival: EMS: [facility] bp 17:32 Acuity: KIARA 2 bp 17:32 Care prior to arrival: IV initiated. 20 GA, in the left antecubital area, Glucose bp check: 146. 21:02 Onset of symptoms is unknown. ao Triage Assessment: 17:32 General: Appears in no apparent distress. comfortable, unkempt, Behavior is calm, bp uncooperative. 17:32 Pain: Denies pain. EENT: No deficits noted. Neuro: Level of Consciousness is awake, bp obeys commands, Oriented to person, place, time, situation. Cardiovascular: Rhythm is sinus rhythm. Respiratory: No deficits noted. GI: No signs and/or symptoms were reported involving the gastrointestinal system. : No signs and/or symptoms were reported regarding the genitourinary system. Derm: No deficits noted. Musculoskeletal: No deficits noted. Historical: - Allergies: 17:34 Codeine; bp 17:35 Codeine; hb - Home Meds: 17:35 benazepril 40 mg Oral tab 1 tab once daily [Active]; clonazepam 0.5 mg Oral tab 1 tab 3 hb times per day [Active]; clopidogrel 75 mg Oral tab 1 tab once daily [Active]; furosemide 40 mg Oral tab 1 tab 2 times per day [Active]; glimepiride 1 mg Oral tab 1 tab once daily [Active]; isosorbide mononitrate 60 mg Oral Tb24 1 tab once daily [Active]; losartan 100 mg Oral tab 1 tab once daily [Active]; Nitrostat 0.4 mg SL subl 1 tab [Active]; Perforomist 20 mcg/2 mL inhalation nebu 2 mL 2 times per day [Active]; potassium chloride 10 mEq Oral TbER 1 tab once daily [Active]; pravastatin 40 mg Oral tab 1 tab once daily [Active]; spironolactone 25 mg Oral tab 1 tab 2 times per day [Active]; amiodarone 200 mg Oral tab 1 tab 2 times per day [Active]; Eliquis 5 mg oral tab 1 tab 2 times per day [Active]; - PMHx: 17:34 VENTRICULAR PACE; CVA; Diabetes - NIDDM; CHF; Hypertension; COPD; Myocardial bp infarction; defibrilator; CAD; 17:35 CAD; CHF; COPD; defibrilator; Diabetes - NIDDM; Hypertension; Myocardial infarction; hb VENTRICULAR PACE; - PSHx: 17:35 defib; hb - Immunization history:: Adult Immunizations unknown, Adult Immunizations up to date. - Social history:: Smoking status: Patient reports the use of cigarette tobacco products, smokes one-half pack cigarettes per day, Smoking status: Patient reports the use of cigarette tobacco products, smokes one pack cigarettes per day. Patient/guardian denies using alcohol, street drugs, The patient lives with family. - Family history:: not pertinent. Screenin:35 Abuse screen: Denies threats or abuse. Denies injuries from another. Nutritional hb screening: No deficits noted. Tuberculosis screening: No symptoms or risk factors identified. Fall Risk Total Hoang Fall Scale indicates Low Risk Score (25-44 pts). Fall prevention measures have been instituted. Side Rails Up X 2 Frequent Obs/Assesments occuring As available Patient and Family Educated on Fall Prevention Program and strategies. Assessment: 17:37 General: SEE TRIAGE NOTE. bp 19:20 General: Appears in no apparent distress. uncomfortable, Behavior is calm, drowsy. ao Pain: Denies pain. Neuro: Level of Consciousness is awake, alert, obeys commands, Oriented to person, place, time, situation, Appropriate for age Moves all extremities. Full function Speech is normal, Facial symmetry appears normal. Cardiovascular: Capillary refill < 3 seconds Patient's skin is warm and dry. Respiratory: Airway is patent Respiratory effort is even, unlabored, Respiratory pattern is regular, symmetrical. GI: No signs and/or symptoms were reported involving the gastrointestinal system. : No signs and/or symptoms were reported regarding the genitourinary system. EENT: No signs and/or symptoms were reported regarding the EENT system. Derm: Skin is intact, Skin is pink, warm \T\ dry. normal, Skin temperature is warm. Musculoskeletal: No signs and/or symptoms reported regarding the musculoskeletal system. 20:00 Reassessment: Called 4 th Fl for patient report per CN. Primary nurse will call me back.ao 20:30 Reassessment: Called back 4th Fl for report. Was put on hold for about 10 min. ao Reassessment: Patient BG was checked to be under 20. Dr Kohler notified and ordered D50 AMP. 20:35 Reassessment: ROSAURA Sharif called back for report. Per Primary nurse patient is not able ao to go to his room since it has orders to check BG Q 1HR. Primary nurse to check with charge nurse and will get back to me. 20:35 Reassessment: Patient recheck BG is 70. ao 20:42 Reassessment: Per Assistant Head Cashier patient to stay in the ER for glucose monitoring. ao Family updated in POC. 20:47 Reassessment: Communicated with Dr Kohler patient POC and agree for patient to stay ao about 20 Min to recheck BG and if stable per Dr Kohler patient can go upstairs. 21:10 Reassessment: Per Assistant Head Cashier patient to stay in the ED for an hour. FSBG check is ao 67 Dr Kohler to be notified. 22:18 Reassessment: Patient BG was 41. Given AMP D50 as ordered by Dr Ulloa. ao 23:41 Reassessment: Patient appears in no apparent distress at this time. Waiting on ER nurse ao to take patient as patient is being admitted a in ICU. 10/30 00:00 Reassessment: Patient to be admitted to ICU. ICU nurse is in ER with current ao assignment. Attempted to give report. Charge nurse notified. 00:35 Reassessment: Attempted to give report again and primary nurse still is in ER. ao Vital Signs: 03 17:32 BP 116 / 64; Pulse 86; Resp 16; Temp 97.8; Pulse Ox 97% on R/A; Weight 95.25 kg; Height bp 6 ft. 2 in. (187.96 cm); 17:54 BP 122 / 58; Pulse 68; Resp 20; Pulse Ox 100% on 3 lpm NC; bp 18:48 BP 117 / 65; Pulse 59; Resp 16; Pulse Ox 100% on 3 lpm NC; bp 19:40 BP 125 / 72; Pulse 55; Resp 18; Pulse Ox 98% on 3 lpm NC; ao 20:53 BP 132 / 71; Pulse 58; Resp 18; Pulse Ox 100% on 3 lpm NC; ao 21:40 BP 144 / 70; Pulse 60; Resp 18; Pulse Ox 98% ; ao 23:41 BP 121 / 64; Pulse 60; Resp 19; Temp 98.6; Pulse Ox 94% on 2 lpm NC; ao 17:32 Body Mass Index 26.96 (95.25 kg, 187.96 cm) bp ED Course: 17:31 Patient arrived in ED. bp 17:33 Triage completed. bp 17:34 Arm band placed on. bp 17:36 Nirali Kohler MD is Attending Physician. ma2 17:38 Patient has correct armband on for positive identification. Placed in gown. Bed in low bp position. Call light in reach. Side rails up X2. 17:38 Maintain EMS IV. Dressing intact. Good blood return noted. Site clean \T\ dry. Gauge \T\ bp site: 20 GAUGE LEFT AC. 17:39 Toño Holder, ROSAURA is Primary Nurse. bp 18:13 Chest Single View XRAY - STROKE In Process Unspecified. EDMS 19:34 Luis Eduardo Knott MD is Hospitalizing Provider. ma2 Administered Medications: 18:10 Drug: D5-1/2 NS 1000 ml Route: IV; Rate: 100 ml/hr; Site: left antecubital; bp 20:46 Follow up: IV Status: Infusion continued upon admission ao 18:10 Drug: D50W 50 ml Route: IVP; Site: left antecubital; bp 20:45 Follow up: Response: No adverse reaction ao 19:05 Drug: Potassium Chloride 10 mEq Route: IV; Rate: calculated rate; Site: left bp antecubital; 20:46 Follow up: IV Status: Completed infusion ao 20:24 Drug: D50W 50 ml Route: IVP; Site: left antecubital; ao 20:45 Follow up: Response: No adverse reaction; Blood sugar is elevated ao 20:46 Drug: Potassium Chloride 10 mEq Route: IV; Rate: calculated rate; Site: left ao antecubital; 20:46 Follow up: IV Status: Infusion continued upon admission ao 22:25 Drug: D50W 50 ml Route: IVP; Site: left antecubital; ao 10/30 00:00 Follow up: Response: No adverse reaction ao 00:00 Drug: D50W 50 ml Route: IVP; Site: left antecubital; ao 00:46 Drug: D10 in Water [2 mL/kg] 100 ml {Note: Started at 100 ML/Hr.} Route: IVP; Site: ao left antecubital; Point of Care Testing: Blood Glucose: 10/29 17:34 Blood Glucose: 55 mg/dL; bp Ranges: Outcome: 19:34 Decision to Hospitalize by Provider. tereso 10/30 01:03 Patient left the ED. mw2 Signatures: Dispatcher [employer] EDRayray Hood RN RN ao Stacey Arizmendi RN Toño Cooper RN RN bp Alzahri, Mohammad, MD MD wa2 Gladys Chung mw2 Corrections: (The following items were deleted from the chart) 10/29 18:48 18:48 BP 117 / 65; Pulse 59bpm; Resp 16bpm; Pulse Ox 100%; bp bp 23:59 20:15 D50W 50 ml IVP in left antecubital ao ao
--- NOTE | 2019-10-30 19:35 | EDPHYS ---
Physician Documentation [facility] Name: Geovanny Moore Age: 73 yrs Sex: Male : 1945 Arrival Date: 10/30/2019 Time: 17:31 Bed 4 Private MD: ED Physician Nirali Kohler HPI: 10/29 19:31 This 73 yrs old Male presents to ER via EMS with complaints of Low Blood ma2 Sugar. 19:31 Onset: The symptoms/episode began/occurred gradually, 1 day(s) ago. Associated signs ma2 and symptoms: Pertinent negatives: constipation, diaphoresis, diarrhea. Current symptoms: In the emergency department the patient's symptoms are unchanged from the initial presentation. The patient has not experienced similar symptoms in the past. Historical: - Allergies: 17:34 Codeine; bp 17:35 Codeine; hb - Home Meds: 17:35 benazepril 40 mg Oral tab 1 tab once daily [Active]; clonazepam 0.5 mg Oral tab 1 tab 3 hb times per day [Active]; clopidogrel 75 mg Oral tab 1 tab once daily [Active]; furosemide 40 mg Oral tab 1 tab 2 times per day [Active]; glimepiride 1 mg Oral tab 1 tab once daily [Active]; isosorbide mononitrate 60 mg Oral Tb24 1 tab once daily [Active]; losartan 100 mg Oral tab 1 tab once daily [Active]; Nitrostat 0.4 mg SL subl 1 tab [Active]; Perforomist 20 mcg/2 mL inhalation nebu 2 mL 2 times per day [Active]; potassium chloride 10 mEq Oral TbER 1 tab once daily [Active]; pravastatin 40 mg Oral tab 1 tab once daily [Active]; spironolactone 25 mg Oral tab 1 tab 2 times per day [Active]; amiodarone 200 mg Oral tab 1 tab 2 times per day [Active]; Eliquis 5 mg oral tab 1 tab 2 times per day [Active]; - PMHx: 17:34 VENTRICULAR PACE; CVA; Diabetes - NIDDM; CHF; Hypertension; COPD; Myocardial bp infarction; defibrilator; CAD; 17:35 CAD; CHF; COPD; defibrilator; Diabetes - NIDDM; Hypertension; Myocardial infarction; hb VENTRICULAR PACE; - PSHx: 17:35 defib; hb - Immunization history:: Adult Immunizations unknown, Adult Immunizations up to date. - Social history:: Smoking status: Patient reports the use of cigarette tobacco products, smokes one-half pack cigarettes per day, Smoking status: Patient reports the use of cigarette tobacco products, smokes one pack cigarettes per day. Patient/guardian denies using alcohol, street drugs, The patient lives with family. - Family history:: not pertinent. ROS: 19:31 Constitutional: Negative for fever, chills, and weight loss. ma2 19:31 All other systems are negative. Exam: 19:31 Constitutional: This is a well developed, well nourished patient who is awake, alert, ma2 and in no acute distress. Neck: Trachea midline, no thyromegaly or masses palpated, and no cervical lymphadenopathy. Supple, full range of motion without nuchal rigidity, or vertebral point tenderness. No Meningismus. Chest/axilla: Normal chest wall appearance and motion. Nontender with no deformity. No lesions are appreciated. Cardiovascular: Regular rate and rhythm with a normal S1 and S2. No gallops, murmurs, or rubs. Normal PMI, no JVD. No pulse deficits. Respiratory: Lungs have equal breath sounds bilaterally, clear to auscultation and percussion. No rales, rhonchi or wheezes noted. No increased work of breathing, no retractions or nasal flaring. Abdomen/GI: Soft, non-tender, with normal bowel sounds. No distension or tympany. No guarding or rebound. No evidence of tenderness throughout. MS/ Extremity: Pulses equal, no cyanosis. Neurovascular intact. Full, normal range of motion. Neuro: Awake and alert, GCS 15, oriented to person, place, time, and situation. Cranial nerves II-XII grossly intact. Motor strength 5/5 in all extremities. Sensory grossly intact. Cerebellar exam normal. Normal gait. Vital Signs: 17:32 BP 116 / 64; Pulse 86; Resp 16; Temp 97.8; Pulse Ox 97% on R/A; Weight 95.25 kg; Height bp 6 ft. 2 in. (187.96 cm); 17:54 BP 122 / 58; Pulse 68; Resp 20; Pulse Ox 100% on 3 lpm NC; bp 18:48 BP 117 / 65; Pulse 59; Resp 16; Pulse Ox 100% on 3 lpm NC; bp 19:40 BP 125 / 72; Pulse 55; Resp 18; Pulse Ox 98% on 3 lpm NC; ao 20:53 BP 132 / 71; Pulse 58; Resp 18; Pulse Ox 100% on 3 lpm NC; ao 21:40 BP 144 / 70; Pulse 60; Resp 18; Pulse Ox 98% ; ao 23:41 BP 121 / 64; Pulse 60; Resp 19; Temp 98.6; Pulse Ox 94% on 2 lpm NC; ao 17:32 Body Mass Index 26.96 (95.25 kg, 187.96 cm) bp MDM: 17:36 Patient medically screened. ma2 19:31 Differential diagnosis: diabetes insipidus, DKA, gestational diabetes, hyperglycemia. ma2 19:33 Data reviewed: vital signs, nurses notes. Counseling: I had a detailed discussion with ma2 the patient and/or guardian regarding: the historical points, exam findings, and any diagnostic results supporting the discharge/admit diagnosis, the presence of at least one elevated blood pressure reading (>120/80) during this emergency department visit, the need for outpatient follow up, the need for further work-up and treatment in the hospital. 10/29 17:37 Order name: Basic Metabolic Panel; Complete Time: 18:36 ma2 10/29 17:37 Order name: CBC with Diff; Complete Time: 18:25 ma2 10/29 17:37 Order name: Creatinine for Radiology; Complete Time: 18:25 ma2 10/29 17:37 Order name: Hepatic Function; Complete Time: 18:36 ma2 10/29 17:37 Order name: Lipase; Complete Time: 18:36 ma2 10/29 17:39 Order name: glucometer results - FOR PT WITH NO ID bp 10/29 18:00 Order name: Troponin (emerg Dept Use Only); Complete Time: 18:43 ma2 10/29 18:39 Order name: Urine Dipstick--Ancillary (enter results); Complete Time: 19:01 bd 10/29 19:40 Order name: Basic Metabolic Panel EDMS 10/29 19:40 Order name: Basic Metabolic Panel EDMS 10/29 19:40 Order name: CBC with Automated Diff EDMS 10/29 19:40 Order name: CBC with Automated Diff EDMS 10/29 20:23 Order name: BNP ao 10/29 20:31 Order name: Glucose, Ancillary Testing EDMS 10/29 18:00 Order name: Chest Single View XRAY - STROKE; Complete Time: 18:28 ma2 10/29 19:40 Order name: Consistent Carb (ADA) 1800 Moshe EDMS 10/29 20:50 Order name: Glucose, Ancillary Testing EDMS 10/29 21:30 Order name: Glucose, Ancillary Testing EDMS 10/29 22:25 Order name: Glucose, Ancillary Testing EDMS 10/29 23:03 Order name: NT PRO-BNP EDMS 10/30 00:18 Order name: Glucose, Ancillary Testing EDMS 10/30 00:34 Order name: Glucose, Ancillary Testing EDMS 10/29 17:37 Order name: IV Saline Lock; Complete Time: 17:40 ma2 10/29 17:37 Order name: Labs collected and sent; Complete Time: 17:53 ma2 10/29 18:00 Order name: Urine Dipstick-Ancillary (obtain specimen); Complete Time: 18:46 ma2 Administered Medications: 18:10 Drug: D5-1/2 NS 1000 ml Route: IV; Rate: 100 ml/hr; Site: left antecubital; bp 20:46 Follow up: IV Status: Infusion continued upon admission ao 18:10 Drug: D50W 50 ml Route: IVP; Site: left antecubital; bp 20:45 Follow up: Response: No adverse reaction ao 19:05 Drug: Potassium Chloride 10 mEq Route: IV; Rate: calculated rate; Site: left bp antecubital; 20:46 Follow up: IV Status: Completed infusion ao 20:24 Drug: D50W 50 ml Route: IVP; Site: left antecubital; ao 20:45 Follow up: Response: No adverse reaction; Blood sugar is elevated ao 20:46 Drug: Potassium Chloride 10 mEq Route: IV; Rate: calculated rate; Site: left ao antecubital; 20:46 Follow up: IV Status: Infusion continued upon admission ao 22:25 Drug: D50W 50 ml Route: IVP; Site: left antecubital; ao 10/30 00:00 Follow up: Response: No adverse reaction ao 00:00 Drug: D50W 50 ml Route: IVP; Site: left antecubital; ao 00:46 Drug: D10 in Water [2 mL/kg] 100 ml {Note: Started at 100 ML/Hr.} Route: IVP; Site: ao left antecubital; Point of Care Testing: Blood Glucose: 10/29 17:34 Blood Glucose: 55 mg/dL; bp Ranges: Critical Glucose Levels:Adult <50 mg/dl or >400 mg/dl <40 mg/dl or >180 mg/dl Disposition: 10/30/19 19:34 Hospitalization ordered by Luis Eduardo Knott for Inpatient Admission. Preliminary diagnosis are Hypoglycemia, unspecified, Hypokalemia. - Bed requested for Intensive Care Unit. - Status is Inpatient Admission. mw2 - Condition is Stable. - Problem is new. - Symptoms are unchanged. Signatures: Dispatcher [employer] EDMS Gayle Panchal RN RN Mami Munoz RN RN lp1 Rayray Franco RN Ajay Marcus, POUCH MAKER POUCH MAKER pm1 Stacey Arizmendi RN RN hb Toño Holder RN RN bp Alzahri, Mohammad, MD MD ak2 Gladys Chung 2 Corrections: (The following items were deleted from the chart) 19:34 19:34 Hospitalization Ordered by Luis Eduardo Knott MD for Observation. Preliminary ak2 diagnosis is Hypoglycemia, unspecified; Hypokalemia. Bed requested for Telemetry/MedSurg (Inpatient). Status is Observation. Condition is Stable. Problem is new. Symptoms are unchanged. [facility] 19:56 19:34 10/30/2019 19:34 Hospitalization Ordered by Luis Eduardo Knott MD for Inpatient mw Admission. Preliminary diagnosis is Hypoglycemia, unspecified; Hypokalemia. Bed requested for Telemetry/MedSurg (Inpatient). Status is Inpatient Admission. Condition is Stable. Problem is new. Symptoms are unchanged. [facility] 22:21 19:56 10/30/2019 19:34 Hospitalization Ordered by Luis Eduardo Knott MD for Inpatient lp1 Admission. Preliminary diagnosis is Hypoglycemia, unspecified; Hypokalemia. Bed requested for Telemetry/MedSurg (Inpatient). Status is Inpatient Admission. Condition is Stable. Problem is new. Symptoms are unchanged. 22:22 22:21 10/30/2019 19:34 Hospitalization Ordered by Luis Eduardo Knott MD for Inpatient lp1 Admission. Preliminary diagnosis is Hypoglycemia, unspecified; Hypokalemia. Bed requested for Intensive Care Unit. Status is Inpatient Admission. Condition is Stable. Problem is new. Symptoms are unchanged. lp1 :22 22:22 10/30/2019 19:34 Hospitalization Ordered by Luis Eduardo Knott MD for Inpatient lp1 Admission. Preliminary diagnosis is Hypoglycemia, unspecified; Hypokalemia. Bed requested for Intensive Care Unit. Status is Inpatient Admission. Condition is Stable. Problem is new. Symptoms are unchanged. lp1 10/30 01:03 10/29 22:22 10/30/2019 19:34 Hospitalization Ordered by Luis Eduardo Knott MD for Inpatient mw2 Admission. Preliminary diagnosis is Hypoglycemia, unspecified; Hypokalemia. Bed requested for Intensive Care Unit. Status is Inpatient Admission. Condition is Stable. Problem is new. Symptoms are unchanged. lp1
[2019-10-30] MEDS: D5.45NS W/KCL 20MEQ 1,000 ML IV SCH (20:00)
[2019-10-31] MEDS ORDERED: DEXTROSE 10%-WATER 500 ML IV ONE (00:35)
[2019-10-31] MEDS: DEXTROSE 10%-WATER 500 ML IV SCH ×2 (00:53→05:32)
[2019-10-31] MEDS ORDERED: D50W 25 GM/50 ML SYRINGE/VIAL IV ONE (03:20)
[2019-10-31 04:59] LABS: Absolute Lymphocytes (CBC) 0.6 K/uL (0.7-4.9); Basophils % 0.9 % (0-1.3); Hematocrit 32.9 % (39.6-49.0); Lymphocytes % 8.5 % (15.3-44.8); MPV 9.8 fL (7.6-11.3); RBC Red Blood Cell Count 4.31 M/uL (4.33-5.43)
[2019-10-31 05:22] LABS: Potassium 2.5 mmol/L (3.5-5.1)
[2019-10-31] MEDS: D50W 25 GM/50 ML SYRINGE/VIAL IV PRN ×11 (05:22→23:17)
[2019-10-31] MEDS: D5.45NS W/KCL 20MEQ 1,000 ML IV SCH (06:00)
[2019-10-31] MEDS: POTASSIUM CL IV SCH ×8 (08:38→23:19)
[2019-10-31] MEDS: DEXTROSE 10% IV SCH ×8 (08:38→23:19)
[2019-10-31] MEDS: WATER IV SCH ×8 (08:38→23:19)
[2019-10-31 08:43] VITALS: BMI 25.1
[2019-10-31] MEDS ORDERED: Magnesium Sulfate 2gm IVPB 2 G/50 ML BAG IV ONE (09:06)
[2019-10-31] MEDS: KCL 20 MEQ/100 mL IVPB 20 MEQ/100 ML BAG IV SCH ×4 (09:33→19:32)
[2019-10-31] MEDS: FUROSEMIDE 20 MG/ 2ML VIAL IV SCH (11:12)
[2019-10-31] MEDS ORDERED: ACETAMINOPHEN 500 MG TAB PO PRN (12:47)
[2019-10-31] MEDS: GABAPENTIN 300 MG CAP PO SCH ×2 (12:53→19:52)
[2019-10-31] MEDS: TRAMADOL HCL 50 MG TAB PO PRN (14:41)
--- NOTE | 2019-10-31 15:01 | ECHO ---
HEIGHT: 6 ft 2 in WEIGHT: 195 lb 0 oz DATE OF STUDY: 10/31/[address]: Luis Eduardo Knott MD 2-DIMENSIONAL: YES M.MODE: YES DOPPLER: YES COLOR FLOW: YES TDS: NO PORTABLE: YES DEFINITY: NO BUBBLE STUDY: NO DIAGNOSIS: CONGESTIVE HEART FAILURE CARDIAC HISTORY: CATHERIZATION: YES SURGERY: NO PROSTHETIC VALVE: NO PACEMAKER: YES MEASUREMENTS (cm) DIASTOLIC (NORMALS) SYSTOLIC (NORMALS) IVSd 1.0 (0.6-1.2) LA Diam 4.3 (1.9-4.0) LVEF 15-20% LVIDd 7.0 (3.5-5.7) LVIDs 5.8 (2.0-3.5) %FS % LVPWd 1.1 (0.6-1.2) Ao Diam 2.9 (2.0-3.7) 2 DIMENSIONAL ASSESSMENT: RIGHT ATRIUM: NORMAL LEFT ATRIUM: DILATED RIGHT VENTRICLE: NORMAL, PACEMAKER LEFT VENTRICLE: DILATED TRICUSPID VALVE: NORMAL MITRAL VALVE: NORMAL PULMONIC VALVE: NORMAL AORTIC VALVE: NORMAL PERICARDIAL EFFUSION: NONE AORTIC ROOT: NORMAL LEFT VENTRICULAR WALL MOTION: SEVERE GLOBAL HYPOKINESIS. DOPPLER/COLOR FLOW: MILD TRICUSPID REGURGITATION. NORMAL RIGHT VENTRICULAR SYSTOLIC PRESSURE. COMMENTS: SEVERE GLOBAL HYPOKINESIS. LEFT VENTRICULAR DILATATION. LEFT ATRIAL ENLARGEMENT. LEFT VENTRICULAR EJECTION FRACTION 15-20%. MILD TRICUSPID REGURGITATION. NORMAL RIGHT VENTRICULAR SYSTOLIC PRESSURE. PACEMAKER IN RIGHT VENTRICULAR APEX. EJECTION FRACTION DECREASED SINCE 09/2018. TECHNOLOGIST: Marielle LANDAVERDE
[2019-10-31] MEDS ORDERED: D50W 25 GM/50 ML SYRINGE/VIAL IV PRN (18:59)
[2019-10-31] MEDS: APIXABAN 5 MG TABLET PO SCH (19:51)
[2019-10-31] MEDS: ONDANSETRON 4 MG/2 ML VIAL IV SCH (19:52)
--- NOTE | 2019-10-31 21:20 | HP ---
Date of Admission: 10/30/2019 History Of Present Illness: The patient is a 73-year-old male, who presented with type 2 diabetes me llitus, on oral hypoglycemic glimepiride, presented to the emergency room with a complaint of being t ired, fatigued, dizzy, and his blood sugar was checked at home was low. In the emergency room, his b lood sugar was checked and was down to the 30s and he was admitted for hypoglycemia along with the pa tient had low electrolytes and mainly potassium at 2.5. Patient denies any chest pain. No increased shortness of breath. There was no other complaints. Review of Systems: Cardiovascular: No complaint. Genitourinary: No complaint. Skeletomuscular: No complaint. Respiratory: No complaint. Gastrointestinal: No complaint. Neurological: No complaint. Past Medical History: 1.Type 2 diabetes mellitus with peripheral neuropathy. 2.Hypertension. 3.Hyperlipidemia. 4.Gastroesophageal reflux disease. 5.COPD. 6.Anemia of chronic disease from diabetes. 7.Chronic kidney disease stage 3 from diabetes. 8.Coronary artery disease with history of acute myocardial infarction in the past. 9.Patient has had defibrillator placement. 10.Patient has chronic lymphedema, both legs and recently has had superficial ulcers on both his fee t. Social History: Patient said he stop smoking. Denies alcohol or drug abuse history. Family History: Noncontributing. Medications: Include glimepiride 1 mg daily, Lasix 40 mg p.o. daily, gabapentin 300 mg p.o. t.i.d., duloxetine 30 mg p.o. daily, amiodarone 200 mg p.o. daily, Plavix 75 mg p.o. daily, potassium chlorid e 10 mEq p.o. daily, pravastatin 40 mg p.o. daily. Symbicort 160 mcg 2 puffs daily, Eliquis 5 mg p.o . b.i.d., albuterol 2 puffs q.i.d. p.r.n., isosorbide mononitrate 60 mg p.o. daily, Nitrostat p.r.n., and clonazepam 0.5 mg p.o. daily. Allergies: CODEINE, CAUSING HALLUCINATIONS. Physical Examination: Vital Signs: Blood pressure 112/90, pulse 60, temperature 97.3. Heart: Regular rate and rhythm. Chest: Bilateral crackles. Abdomen: Soft, nontender. No hepatosplenomegaly. Bowel sounds are normoactive. Extremities: Chronic lymphedema bilateral. The patient has a superficial ulcers on both feet dorsal . Neurological: Alert, oriented. Nonfocal grossly intact. Laboratory Data: Chest x-ray showed a picture of congestive heart failure. Labs as mentioned, the p attita's blood sugar was down to the 30s. Sodium was 140, chloride 100, CO2 at 37, BUN 25, creatinin e 1.71 and GFR down at 39. CBC noted with a hemoglobin at 10.1, hematocrit 32.9. Urinalysis shows n egative nitrite and . Assessment And Plan: 1.Significant hypoglycemia. Patient is being admitted. We will monitor his blood sugar and then gi ve him IV fluids with either D50 and put him on D10 and monitor his blood sugar and supplement as nee ded. 2.Hypokalemia. We will supplement potassium with electrolyte protocol and we will check magnesium a nd also applied electrolyte protocol for that. 3.We will continue the rest of his home medications. However, we will hold on his blood pressure me dications, which tend to be on the low side right now. We are going to go ahead and repeat chest x-ray and check cardiac echo. We will put him on IV Lasix for congestive heart failure as demonstrat ed. Look orders for details. MFS/MODL Voice ID: [id number]
[2019-11-01] MEDS: POTASSIUM CL IV SCH ×4 (04:28→10:15)
[2019-11-01] MEDS: WATER IV SCH ×4 (04:28→10:15)
[2019-11-01] MEDS: DEXTROSE 10% IV SCH ×4 (04:28→10:15)
[2019-11-01 05:01] LABS: Basophils % 0.9 % (0-1.3); Hematocrit 35.9 % (39.6-49.0); Lymphocytes % 9.2 % (15.3-44.8); MPV 10.1 fL (7.6-11.3); RBC Red Blood Cell Count 4.77 M/uL (4.33-5.43)
[2019-11-01 05:14] LABS: Magnesium 2.2 mg/dL (1.8-2.4); Potassium 4.8 mmol/L (3.5-5.1)
--- NOTE | 2019-11-01 08:56 | RAD REPORT ---
EXAM DESCRIPTION: RAD - Chest Single View - 11/01/2019 6:42 am CLINICAL HISTORY: chf Chest pain. COMPARISON: Chest Single View dated 10/30/2019; Chest Single View dated 05/12/2019; Chest Single View dated 02/10/2019; Chest Single View dated 01/23/2019 FINDINGS: Portable technique limits examination quality. Moderate worsening in lung aeration is seen particularly in right upper lung, suspicious for worsenin g asymmetric pulmonary edema or superimposed pneumonia. The heart is moderately enlarged with multile ad pacer/defibrillator device. No displaced fractures. IMPRESSION: Moderate worsening of lung aeration, particularly on the right as detailed.
[2019-11-01] MEDS: APIXABAN 5 MG TABLET PO SCH (09:00)
[2019-11-01] MEDS: DULOXETINE 30 MG CAP PO SCH (10:14)
[2019-11-01] MEDS: ONDANSETRON 4 MG/2 ML VIAL IV SCH ×3 (10:15→20:06)
[2019-11-01] MEDS: FUROSEMIDE 20 MG/ 2ML VIAL IV SCH (10:15)
[2019-11-01] MEDS: CLOPIDOGREL 75 MG TABLET PO SCH (10:15)
[2019-11-01] MEDS: GABAPENTIN 300 MG CAP PO SCH ×3 (10:15→20:06)
--- NOTE | 2019-11-01 11:42 | PN ---
Patient has no new complaint. Objective: Vital Signs: Blood pressure 122/67, pulse 60, temperature 98.1. Heart: Regular rate and rhythm. Chest: Bilateral crackles. Abdomen: Soft, benign. Neurological: Alert, oriented, intact. Extremities: Dense edema, chronic, bilateral, no change. Diagnostic Studies: Cardiac echo showed left ejection fraction of 15% to 20%. Chest x-ray showed pu lmonary edema, slightly worse than the previous one. Chemistry noted sodium 133, BUN 29, creatinine 2.26, and CBC noted hemoglobin 11, hematocrit 35.9. Blood sugar fingersticks noted showing results a jeanne 80 in the past 12 hours. Assessment/plan: 1.Acute systolic congestive heart failure on top of chronic. Go ahead and increase Lasix to 40 mg i ntravenous. Continue bedrest and salt restriction. 2.Hypoglycemia, resolved. We will continue to monitor blood sugar. 3.Anemia of chronic illness, stable. 4.Type 2 diabetes. As mentioned, we will maintain the blood sugar. 5.Rest of chronic medical problems stable. 6.Electrolytes: Correcting them on electrolyte panel, potassium is at 4.8, sodium 133, calcium 7.8. Look orders for details. MFS/MODL Voice ID: [id number] Report ID: [id number]
[2019-11-01] MEDS ORDERED: FUROSEMIDE 20 MG/ 2ML VIAL ONE (11:48)
[2019-11-01] MEDS ORDERED: MORPHINE 4 MG/ML SYR IV PRN (12:52)
[2019-11-01] MEDS ORDERED: NITROGLYCERIN 0.4 MG/TAB SL PRN (12:53)
[2019-11-01 13:10] LABS: Arterial Blood Carboxyhemoglob 2.1 % (0-1.5); Blood Gas Oxyhemoglobin 89.3 % (94-97); Blood O2 Saturation 92.1 % (92-98.5)
[2019-11-01] MEDS ORDERED: FUROSEMIDE 40 MG/4 ML VIAL IV ONE ×2 (13:20→20:00)
--- NOTE | 2019-11-01 13:23 | EKG ---
Test Date: 2019-11-01 Test Time: 13:16:38 Lpn Private Duty: ANDREA MEASUREMENT RESULTS: Intervals: Rate: 60 MS: QRSD: 180 QT: 602 QTc: 602 [place]: P: MS: QRS: -82 T: 89 INTERPRETIVE STATEMENTS: AV sequential or dual chamber electronic pacemaker Compared to ECG 05/12/2019 05:15:46 No significant changes Electronically Signed On 11-01-19 13:22:49 CDT by Willy Morel
[2019-11-01 13:35] LABS: CKMB Creatine Kinase MB 25.2 ng/mL (0.3-3.6)
[2019-11-01] MEDS ORDERED: SODIUM CHLORIDE 0.9% 10ML INJ IV PRN (13:48)
[2019-11-01] MEDS: ISOSORBIDE MONO SR 60 MG TAB PO SCH (13:51)
[2019-11-01] MEDS: PANTOPRAZOLE 40 MG INJ IVP SCH ×2 (14:30→20:06)
[2019-11-01] MEDS ORDERED: PANTOPRAZOLE 40MG TABLET PO SCH (16:30)
[2019-11-01 17:11] LABS: Absolute Lymphocytes (CBC) 0.2 K/uL (0.7-4.9); Basophils % 0.1 % (0-1.3); Hematocrit 40.4 % (39.6-49.0); Lymphocytes % 1.3 % (15.3-44.8); MPV 10.8 fL (7.6-11.3); RBC Red Blood Cell Count 5.12 M/uL (4.33-5.43)
--- NOTE | 2019-11-01 18:07 | CON ---
Reason For Consult: CAD and chest pain. History Of Present Illness: Mr. Moore came to the hospital because of shortness of breath and general ized decline in his overall condition. Since being here, we have seen that his ejection fraction is in the 20% range. He had a mild elevation of troponin. 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 He has underlying diabetes, congestive heart failure, atrial fibrillation, ventricular tachycard ia, markedly depressed ejection fraction, obstructive lung disease, hypertension. Outpatient medicat ions included glimepiride, Lasix, gabapentin, duloxetine, amiodarone, Plavix, potassium chloride, pra vastatin, Symbicort, Eliquis, albuterol, isosorbide mononitrate, nitroglycerin as needed, and clonaze lynnette. I am not sure who his usual proration clerk is. Dr. Plummer and I have seen him probably close to 10 times in the hospital, but he has never been to our office for a followup visit. I am not sure w ronna monitors his defibrillator or decides on his medications. He does not think he has had a heart ca theterization or a stent in some years. Indeed, just a few years ago, he told us that the last time he had a heart catheterization he was told never to do it again because his coronary arteries were in operable. Physical Examination: General: The patient looks extremely ill chronically. He is not in respiratory distress, little bit somnolent, but he can awaken and answer questions appropriately. The pain he indicates is epigastri c or mid abdominal. He has thrown up once. Lungs: Reveal bronchial type breath sounds. I do not appreciate wheezes or crackles. Heart: Muffled tones. Laterally displaced apical impulse. Abdomen: Soft. Extremities: Reveal cool general temperature. There are small ulcers throughout. There is a bluish discoloration with darker areas and I do not appreciate any pulses in his feet at all. Imaging Studies: His electrocardiogram reveals AV sequential pacing. Impression: Mr. Moore's pain is probably some kind of abdominal process. Certainly, he does not seem to have any organ system in his body that is functioning well and he could be having unstable angina as well. Definitely, he is not a candidate for heart catheterization or a stent and that will not b e considered. Treating him with Plavix alone is all I would do. He is certainly not in atrial fibri llation now. Another hemoglobin and hematocrit will be checked in a few hours to see if he is active ly bleeding. I am suspicious that he may be bleeding, although hemoglobin this morning was 11. I wo uld not be surprised if he has diverticulitis or threatened perforation of a duodenal ulcer or someth ing like that going on in his abdomen. Perhaps surgical consultation could be done to help us make a good diagnosis, but if he needs surgery, he would be extremely high risk candidate, a class 4 or cla ss 5 anesthesia and I do not believe Mr. Moore is a candidate for going to the cardiac electrical laboratory technician and tr yesenia revascularization. AMBER/KAYLYNN Voice ID: [id number] Report ID: [id number]
[2019-11-01 18:35] LABS: Anisocytosis 2+; Blood Morphology Comment NOTED (NOT SEEN); Platelet Estimate ADEQ; Poikilocytosis 1+; Polychromasia 1+
[2019-11-01 19:47] LABS: Troponin I 0.17 ng/mL (0.0-0.045)
[2019-11-01 21:29] VITALS: O2SAT 93
[2019-11-02] MEDS: TRAMADOL HCL 50 MG TAB PO PRN (00:53)
[2019-11-02] MEDS: D50W 25 GM/50 ML SYRINGE/VIAL IV PRN (04:07)
[2019-11-02] MEDS ORDERED: ETOMIDATE 20 MG/10 ML VIAL IV ONE (05:00)
[2019-11-02] MEDS ORDERED: ROCURONIUM 50 MG/5 ML VIAL IV ONE (05:00)
[2019-11-02 05:08] VITALS: TEMP 97
[2019-11-02 05:25] LABS: Urine Appearance TURBID; Urine Blood 3+ (NEG); Urine Color RED; Urine Glucose NEGATIVE (NEG); Urine Protein 1+ (NEG)
[2019-11-02 05:34] LABS: Urine Bilirubin 2+ (NEG)
[2019-11-02 05:35] LABS: Absolute Lymphocytes (CBC) 0.5 K/uL (0.7-4.9); Basophils % 0.2 % (0-1.3); Hematocrit 36.4 % (39.6-49.0); Lymphocytes % 3.8 % (15.3-44.8); MPV 10.9 fL (7.6-11.3); RBC Red Blood Cell Count 4.49 M/uL (4.33-5.43)
[2019-11-02 06:03] LABS: UR MICROALBUMIN 35.9 mg/dL (< 1.9)
[2019-11-02 06:04] LABS: Urine Culture Reflex Order REFLEXED; Urine RBC >50 /HPF (NONE SEEN)
[2019-11-02 06:05] LABS: Urine Bacteria >50 /HPF (NONE SEEN)
[2019-11-02 06:07] LABS: Albumin 2.1 g/dL (3.4-5.0); Bilirubin Total 3.3 mg/dL (0.2-1.0); Potassium 5.1 mmol/L (3.5-5.1); Protein, Total 6.1 g/dL (6.4-8.2); Uric Acid 12.7 mg/dL (3.5-7.2)
[2019-11-02] MEDS ORDERED: DEXTROSE 10%-WATER 500 ML IV ONE (07:36)
[2019-11-02] MEDS ORDERED: NA CHLORIDE 0.9% 1,000 ML ONE ×2 (07:38→09:42)
[2019-11-02] MEDS: NOREPINEPHRINE 4 MG in D5W 250 ML IV PRN ×2 (07:40→10:00)
[2019-11-02] MEDS ORDERED: RSI MEDICATION KIT IV ONE (08:04)
[2019-11-02] MEDS ORDERED: HYDROCORTISONE SUC 100 MG INJ ONE (08:05)
[2019-11-02] MEDS ORDERED: WATER FOR INJ,STERILE 20 ML ONE (08:06)
[2019-11-02] MEDS ORDERED: MIDAZOLAM HCL 2 MG/2 ML INJ IV PRN (08:14)
[2019-11-02] MEDS ORDERED: LORazepam 2 MG/ML VIAL IV PRN (08:14)
--- NOTE | 2019-11-02 08:49 | RAD REPORT ---
EXAM DESCRIPTION: RAD - Chest Single View - 11/02/2019 8:22 am CLINICAL HISTORY: Resp. Distress COMPARISON: Portable chest October 31, portable chest October 29 TECHNIQUE: AP portable chest image was obtained 11/02/2019 8:22 am . FINDINGS: Endotracheal tube has been placed. Tip is at the T4 level 4 cm from the kennedi. Defibrilla tor remains in place on the right. Consolidation in the upper right lung field has improved. Patient does continue to have alveolar opacification in the mid and lower right lung field. Left lung field i s shows slight increase in interstitial opacification. Cardiomegaly remains. Vasculature is prominent . No measurable pleural effusion and no pneumothorax. No acute bony abnormality seen. No acute aortic findings suspected. IMPRESSION: Endotracheal tube in place the T4 level approximately 4 cm above the kennedi. Extensive airspace opacification in the right lung field slightly improved from prior day imaging. Significant cardiomegaly. Lung markings and vasculature are prominent and patient can be monitored fo r developing failure or volume overload.
--- NOTE | 2019-11-02 08:57 | PN ---
Mr. Moore was admitted to Dr. Knott's service on 10/30/2019. He has been followed by Dr. Nikos Morel for chronic systolic congestive heart failure, ejection fraction less than 20%. He has a defibrillator. Has had multiple admissions for further exacerbation of his chronic systolic conges tive heart failure. He has a possibility of diverticulitis versus duodenal ulcer. He has a history of diabetes, atrial fibrillation. He has a history of ventricular tachycardia, COPD, and hypertensio n. He is a very poor candidate for any intervention, coronary or otherwise he is very high risk. Th is morning he continued to be dyspneic and not responding to Lasix very well. Nephrology is followin g. He may need more aggressive diuresis and may even need dialysis down the road. We will continue to follow him. EVANS/KAYLYNN Voice ID: [id number] Report ID: [id number]
[2019-11-02] MEDS: DULOXETINE 30 MG CAP PO SCH (09:00)
[2019-11-02] MEDS ORDERED: FUROSEMIDE 40 MG/4 ML VIAL IV SCH (09:00)
[2019-11-02] MEDS ORDERED: CALCITROL 0.25 MCG CAP PO SCH (09:00)
[2019-11-02] MEDS: ISOSORBIDE MONO SR 60 MG TAB PO SCH (09:00)
[2019-11-02] MEDS: ONDANSETRON 4 MG/2 ML VIAL IV SCH (09:00)
[2019-11-02] MEDS: PANTOPRAZOLE 40 MG INJ IVP SCH (09:00)
[2019-11-02] MEDS ORDERED: CEFTRIAXONE/SWI 1gm 1 GM/10 ML SYR IV SCH (09:00)
[2019-11-02] MEDS: GABAPENTIN 300 MG CAP PO SCH (09:00)
[2019-11-02] MEDS: CLOPIDOGREL 75 MG TABLET PO SCH (09:00)
[2019-11-02 09:07] LABS: Protime INR 2.81
[2019-11-02 09:08] LABS: Absolute Lymphocytes (CBC) 0.4 K/uL (0.7-4.9); Basophils % 0.1 % (0-1.3); Hematocrit 36.2 % (39.6-49.0); Lymphocytes % 3.1 % (15.3-44.8); MPV 11.3 fL (7.6-11.3); RBC Red Blood Cell Count 4.28 M/uL (4.33-5.43)
[2019-11-02 09:30] LABS: Arterial Blood Carboxyhemoglob 1.9 % (0-1.5); Blood Gas Oxyhemoglobin 72.1 % (94-97); Blood O2 Saturation 74.3 % (92-98.5)
[2019-11-02 09:35] LABS: Albumin 1.9 g/dL (3.4-5.0); Bilirubin Total 3.6 mg/dL (0.2-1.0); Potassium 5.4 mmol/L (3.5-5.1); Protein, Total 5.6 g/dL (6.4-8.2)
[2019-11-02 09:47] LABS: Blood Morphology Comment NOT SEEN (NOT SEEN); Platelet Estimate ADEQ
--- NOTE | 2019-11-02 11:12 | PN ---
Patient's urinalysis this morning showed a positive nitrite and esterase; however, white cell was 5-1 0, and we will go ahead and put him on IV Rocephin. MFS/MODL Voice ID: [id number] Report ID: [id number]
--- NOTE | 2019-11-02 11:24 | CON ---
Date of Consultation: 11/02/2019 History Of Present Illness: This patient was consulted stat for central line placement. Patient rig ht now in cardiac, respiratory, and circulatory failure. A central line was requested stat for the a dministration of medication due to poor peripheral access. The patient cannot give any information. The patient's was explained by the medical staff his condition including the need for emergent central line placement with benefits, alternatives, and risks including, but not limited to infection , DVTs, clot, bleeding, NM, even . Apparently, patient has an extensive history of a cardiac di sease. Currently, he is on the ventilator, right now being resuscitated. Past Medical History: Reviewed with the primary doctor. Social History: Reviewed with the primary doctor. Family History: Reviewed with the primary doctor present at ICU at this moment. Allergies: REVIEWED WITH THE PRIMARY DOCTOR, JET. Review of Systems: Unable to be obtained. The patient is ventilated and sedated. Abdomen: Soft and depressible. No guarding or rebound. EXTREMITIES: Multiple decubitus ulcers in the foot area with no evidence of abscess. Right femoral region looks intact. Laboratory Data: Blood work reviewed. I do not see an INR with this. Once again, this is an emerge nt procedure and needs to be done. Plan: A central line placement with benefits, alternatives, and risks fully explained above. They a re working on his all over body, so we believe at this moment the safest way to go is in the right fe moral region stat central line placement with a goal that when he is more stable and a little bit better clinically, we can change that central line if needed to the upper bod y. Please see procedure. HM/MODL Voice ID: [id number] Report ID: [id number]
--- NOTE | 2019-11-02 11:27 | OP ---
Date of Procedure: 11/02/2019 Surgeon: Emeka Lynch MD Preoperative Diagnoses: Respiratory failure, hypotension. Please refer to the medical service. Postoperative Diagnoses: Respiratory failure, hypotension. Please refer to the medical service. Procedure: Emergent central line placement in the right femoral vein. Anesthesia: Local. Indications: This is a case of a 73-year-old patient with multiple medical problems, right now in IC U, intubated, ventilated in circulatory failure. I was asked as an emergency by the primary doctor arturo Carvalho to put a central line in this patient immediately. I cannot get any information from t he patient at this moment, I by the information of the primary doctor. The central line _ in that case, the safest way we can go apparently is in the right femoral region. Description Of Procedure: The right femoral area was prepped and draped in a sterile fashion. Local anesthesia was applied followed by 18-gauge needle in the right femoral vein at the first attempt. A guidewire was passed through, needle was removed, and a central line triple lumen was placed using Seldinger technique. Excellent backflow and inflow. The line was secured in place and I gave it to the primary doctor back for this emergent use. Patient tolerated this procedure well. DIYA/KAYLYNN Voice ID: [id number] Report ID: [id number]
--- NOTE | 2019-11-02 11:54 | PN ---
Subjective: The patient is not doing well this morning. He was doing fairly okay during the night, but earlier this morning, nurses have noted that he started having increased shortness of breath, bec ome obtunded, and his ABGs reflect acute respiratory failure. The patient became unresponsive. The patient with that was intubated. Right now, the patient is on mechanical ventilation. Objective: Vital Signs: His blood pressure is 88/45, his pulse is 60, and his respiratory rate befo re intubation was 25. Heart: Regular rate. Chest: Bilateral crackles. Abdomen: Soft, benign. Extremities: Mild chronic lymphedema with a trace pitting edema. His feet ulcers are well healed wi th dry eschars and has no evidence of infection. That was done and managed by Wound Care before admi ssion. Laboratory Data: The patient's CBC; his white cell count is 11.9, hemoglobin 10.2, hematocrit 36.4, and platelets 194. Chemistry; sodium 132, chloride 92, CO2 of 15, BUN 51, creatinine 3.96. Blood witt gar was 33, up to 177 now with today in the 50s. His liver enzymes; AST and ALT are 2037 and 642, re spectively and his alk phosphatase is 3392. Assessment/plan: The patient is on mechanical ventilation with acute respiratory failure and acute c ongestive heart failure systolic on top of chronic evident by increased liver enzymes with congestion . Also, patient's hypoglycemia is from, I think, bowel edema with little absorption. I went ahead a nd talked with the and the right now, she wants to discuss the situation with the patient's chil dren to decide whether to have him DNR or not, so at this time, we will keep mechanical ventilation a nd we will keep him full code for now until we get other instructions from his family. The patient i s on vasopressor and Levophed and central line being placed, doing mechanical ventilation, and have a sked Renal to see him yesterday with his bdimm-mi-lnnruzu renal failure. I do not think the patient is having an infection, but we will give him 1 g Rocephin as to cover all bases of his deterioration, although I think that the patient's coronary artery disease with his angina and his congestive failure have made him succumb and gave up on that. Look o rders for details. MFS/MODL Voice ID: [id number] Report ID: [id number]
--- NOTE | 2019-11-02 13:00 | P.CNS ---
Date of Consult: 11/02/19 Reason for Consult: Respiratory failure Chief Complaint: Cardiac arrest History of Present Illness: Patient is 73 years of age with severe congestive heart failure was ordered this moaning is currently on a ventilator and is in shock patient is status post CPR Allergies codeine Adverse Reaction (Severe, Verified 10/05/18 04:31) seecom Home Medications: Clopidogrel Bisulfate [Clopidogrel] 75 mg PO DAILY 09/19/18 Furosemide [Lasix*] 40 mg PO DAILY 09/19/18 Gabapentin [Neurontin] 300 mg PO TID 09/19/18 Glimepiride 1 mg PO DAILY 09/19/18 Nitroglycerin [Nitrostat*] 0.4 mg SL 1X PRN 09/19/18 Duloxetine HCl [Cymbalta] 30 mg PO DAILY 10/04/18 Isosorbide Mononitrate [Isosorbide Mononitrate ER] 60 mg PO DAILY 10/04/18 Amiodarone HCl [Cordarone*] 200 mg PO BID 05/12/19 Apixaban [Eliquis *] 5 mg PO BID 05/12/19 Metoprolol Lino/Hydrochlorothiaz [Metoprolol ER-Hctz 25-12.5 mg] 1 tab PO DAILY Potassium Cl [Klor-Con 8] 20 meq PO DAILY 05/12/19 Pravastatin Sodium 40 mg PO BEDTIME 05/12/19 metOLazone [Metolazone] 2.5 mg PO DAILY 05/12/19 - Past Medical/Surgical History Diabetic: Yes -: DM-NIDDM -: HTN -: COPD -: CHF -: Hyperlipidemia -: Stroke -: [place] X 3 -: DM-niddm -: Pacemaker/defibrillator -: cholecystectomy -: R Elbow surgery -: R Knee surgery -: Cardiac stents Psychosocial/ Personal History: , Children-5, 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 - Family History Brother Notes: bypass Mother Medical History: Stroke Father Medical History: Heart disease - Social History Smoking Status: Current every day smoker Alcohol use: No CD- Drugs: No Caffeine use: Yes Place of Residence: Home Review of Systems is unable to be obtained Physical Examination Temp Pulse Resp BP Pulse Ox 97 F 42 L 13 107/66 92 11/02/19 04:00 11/02/19 10:30 11/02/19 10:30 11/02/19 10:30 11/02/19 04:00 General: Unresponsive Respiratory: Clear to auscultation bilaterally, Crackles/rales, Expiratory wheezes Cardiovascular: No edema, Normal S1 S2 Gastrointestinal: Normal bowel sounds, Soft and benign Integumentary: Other (Patient has multiple ulcers on his toes) - Problems (1) Cardiac arrest Current Visit: Yes Status: Acute Plan: Patient is 73 years of age with severe congestive heart failure status post cardiac arrest currently on Levophed drip on a ventilator chest x-ray shows some interstitial changes acute on chronic renal failure shock liver patient is overall prognosis is very poor continue with supportive care discuss with family members regarding possible withdrawal of care if he does not respond in the next 24-48 hr he is DNR patient has multiorgan dysfunction
[2019-11-02 14:11] VITALS: BP 59/16
--- NOTE | 2019-11-02 21:07 | P.CNS ---
Date of Consult: 11/02/19 Reason for Consult: Oliguric USAMA Requesting Physician: Luis Eduardo Knott Primary Care Provider: Dr. Knott Chief Complaint: Cardiac arrest History of Present Illness: 73 yo WM seen and examined in the ICU. Became unresponsive in the last 24 hours and required intubation this morning for acute respiratory failure. Case reviewed with Dr. Carvalho and the patient's nurse. Limited HPI/ ROS due to unresponsiveness. The patient is a 73-year-old male, who presented with type 2 diabetes mellitus, on oral hypoglycemic glimepiride, presented to the emergency room with a complaint of being tired, fatigued, dizzy, and his blood sugar was checked at home was low. In the emergency room, his blood sugar was checked and was down to the 30s and he was admitted for hypoglycemia along with the patient had low electrolytes and mainly potassium at 2.5. Patient denies any chest pain. No increased shortness of breath. There was no other complaints. 19:31 This 73 yrs old Male presents to ER via EMS with complaints of Low Blood ma2 Sugar. 19:31 Onset: The symptoms/episode began/occurred gradually, 1 day(s) ago. Associated signs ma2 and symptoms: Pertinent negatives: constipation, diaphoresis, diarrhea. Current symptoms: In the emergency department the patient's symptoms are unchanged from the initial presentation. The patient has not experienced similar symptoms in the past. Allergies codeine Adverse Reaction (Severe, Verified 10/05/18 04:31) seecom Home medications list reviewed: Yes Home Medications: Clopidogrel Bisulfate [Clopidogrel] 75 mg PO DAILY 09/19/18 Furosemide [Lasix*] 40 mg PO DAILY 09/19/18 Gabapentin [Neurontin] 300 mg PO TID 09/19/18 Glimepiride 1 mg PO DAILY 09/19/18 Nitroglycerin [Nitrostat*] 0.4 mg SL 1X PRN 09/19/18 Duloxetine HCl [Cymbalta] 30 mg PO DAILY 10/04/18 Isosorbide Mononitrate [Isosorbide Mononitrate ER] 60 mg PO DAILY 10/04/18 Amiodarone HCl [Cordarone*] 200 mg PO BID 05/12/19 Apixaban [Eliquis *] 5 mg PO BID 05/12/19 Metoprolol Lino/Hydrochlorothiaz [Metoprolol ER-Hctz 25-12.5 mg] 1 tab PO DAILY Potassium Cl [Klor-Con 8] 20 meq PO DAILY 05/12/19 Pravastatin Sodium 40 mg PO BEDTIME 05/12/19 metOLazone [Metolazone] 2.5 mg PO DAILY 05/12/19 - Past Medical/Surgical History Diabetic: Yes -: DM-NIDDM -: HTN -: COPD -: CHF -: Hyperlipidemia -: Stroke -: [place] X 3 -: DM-niddm -: Pacemaker/defibrillator -: cholecystectomy -: R Elbow surgery -: R Knee surgery -: Cardiac stents Psychosocial/ Personal History: , Children-5, 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 - Family History Brother Notes: bypass Mother Medical History: Stroke Father Medical History: Heart disease - Social History Smoking Status: Current every day smoker Alcohol use: No CD- Drugs: No Caffeine use: Yes Place of Residence: Home Review of Systems is unable to be obtained Physical Examination Temp Pulse Resp BP Pulse Ox 97 F 0 L 0 L 59/16 L 92 11/02/19 04:00 11/02/19 13:30 11/02/19 13:30 11/02/19 13:15 11/02/19 04:00 General: Unresponsive HEENT: Atraumatic, Mucous membr. moist/pink Neck: Supple Respiratory: Clear to auscultation bilaterally, Normal air movement Cardiovascular: No edema, Regular rate/rhythm, No rubs Gastrointestinal: Soft and benign, Non-distended, No guarding Musculoskeletal: No clubbing, No contractures Integumentary: No rashes, Skin breakdown, Cyanosis, Arterial ulcer Neurological: Abnormal speech (No speech.) Lymphatics: No axilla or inguinal lymphadenopathy Urinary: Suh catheter External genitalia: No edema Blood work reviewed in the chart. Imagings Data: EXAM DESCRIPTION: RAD - Chest Single View - 11/02/2019 8:22 am CLINICAL HISTORY: Resp. Distress COMPARISON: Portable chest October 31, portable chest October 29 TECHNIQUE: AP portable chest image was obtained 11/02/2019 8:22 am . FINDINGS: Endotracheal tube has been placed. Tip is at the T4 level 4 cm from the kennedi. Defibrillator remains in place on the right. Consolidation in the upper right lung field has improved. Patient does continue to have alveolar opacification in the mid and lower right lung field. Left lung field is shows slight increase in interstitial opacification. Cardiomegaly remains. Vasculature is prominent. No measurable pleural effusion and no pneumothorax. No acute bony abnormality seen. No acute aortic findings suspected. IMPRESSION: Endotracheal tube in place the T4 level approximately 4 cm above the kennedi. Extensive airspace opacification in the right lung field slightly improved from prior day imaging. Significant cardiomegaly. Lung markings and vasculature are prominent and patient can be monitored for developing failure or volume overload. LEFT VENTRICULAR WALL MOTION: SEVERE GLOBAL HYPOKINESIS. DOPPLER/COLOR FLOW: MILD TRICUSPID REGURGITATION. NORMAL RIGHT VENTRICULAR SYSTOLIC PRESSURE. COMMENTS: SEVERE GLOBAL HYPOKINESIS. LEFT VENTRICULAR DILATATION. LEFT ATRIAL ENLARGEMENT. LEFT VENTRICULAR EJECTION FRACTION 15-20%. MILD TRICUSPID REGURGITATION. NORMAL RIGHT VENTRICULAR SYSTOLIC PRESSURE. PACEMAKER IN RIGHT VENTRICULAR APEX. EJECTION FRACTION DECREASED SINCE 09/2018. Conclusions/Impression: A/ Acute renal failure with oliguria likely due to ATN. Acute respiratory failure sp intubation. Hyponatremia. Hyperkalemia. Acidosis. DM II with CKD. Acute hepatitis likely due to shock. Sepsis with shock. Severe malnutrition. CAD/ PAD. Systolic CHF, chronic. Anemia in chronic illness. Hypocalcemia. Rhabdomyolysis. Toxic metabolic encephalopathy. P/ Continue current POC and Medications. Agree with intubation. Pressor therapy started. Give IVF bolus as ordered. No NSAIDs. AM labs. Daily weight. Prognosis poor in the setting of multiorgan failure. Critical Care: Yes (Greater than 30 min patient care.)
== END 2019-11-02 13:31 | disposition expired | DRG 637 ==
LOC: ER 17:28 → ERHOLD 20:13 → 3RD-ICU 10-31 01:56
PROVIDERS: ADMIT Internal Medicine; ATTEND Internal Medicine
PROC: 06HM33Z Insertion of Infusion Device into Right Femoral Vein, Percutaneous Approach (ICD-10-PCS; principal; 2019-11-02)
PROC: 0BH17EZ Insertion of Endotracheal Airway into Trachea, Via Natural or Artificial Opening (ICD-10-PCS; 2019-11-02)
PROC: 5A1935Z Respiratory Ventilation, Less than 24 Consecutive Hours (ICD-10-PCS; 2019-11-02)
DX: E11.649 Type 2 diabetes mellitus with hypoglycemia without coma (principal); J96.00 Acute respiratory failure, unspecified whether with hypoxia or hypercapnia; I50.23 Acute on chronic systolic (congestive) heart failure; E43 Unspecified severe protein-calorie malnutrition; I13.0 Hypertensive heart and chronic kidney disease with heart failure and stage 1 through stage 4 chronic kidney disease, or unspecified chronic kidney disease; E87.0 Hyperosmolality and hypernatremia; M62.82 Rhabdomyolysis; E87.2 Acidosis; I46.9 Cardiac arrest, cause unspecified; N17.0 Acute kidney failure with tubular necrosis; E11.22 Type 2 diabetes mellitus with diabetic chronic kidney disease; E11.42 Type 2 diabetes mellitus with diabetic polyneuropathy; I48.91 Unspecified atrial fibrillation; N18.3 Chronic kidney disease, stage 3 (moderate); G92 Toxic encephalopathy; E78.5 Hyperlipidemia, unspecified; K21.9 Gastro-esophageal reflux disease without esophagitis; J44.9 Chronic obstructive pulmonary disease, unspecified; I25.10 Atherosclerotic heart disease of native coronary artery without angina pectoris; I89.0 Lymphedema, not elsewhere classified; E87.5 Hyperkalemia; I25.2 Old myocardial infarction; Z95.0 Presence of cardiac pacemaker; Z68.25 Body mass index [BMI] 25.0-25.9, adult
CPT/HCPCS: 36415; 71045; 80048; 80053; 80076; 81001; 81003; 82043; 82550; 82553; 82570; 82805; 82947; 83605; 83690; 83735; 83880; 84132; 84145; 84300; 84484; 84550; 85025; 85610; 85730; 86850; 86900; 86901; 87040; 87086; 87088; 93005; 93306; 94002; 96361; 96365; 96366; 96375; 99284; C9113; J0696; J1720; J1940; J2250; J2405; J3475; J7030; J7060; J7799